=== PATIENT | male | born 1950 | race Caucasian/White ===

== ENCOUNTER 2018-04-27 14:46 | Inpatient (IN) ==
[2018-04-27 16:18] LABS: Baso # (Auto) 0.1 th/mm3 (0.0-0.2); Baso % (Auto) 0.8 % (0.0-2.0); Eos % (Auto) 0.2 % (0.0-4.0); Hemoglobin 15.2 gm/dL (13.0-17.0); Lymph # (Auto) 0.5 th/mm3 (1.0-4.8); Lymph % (Auto) 8.2 % (9.0-44.0); Mean Corpuscular HGB Conc 33.8 % (32.0-36.0); Mean Corpuscular Hemoglobin 33.2 pg (27.0-34.0); Mean Corpuscular Volume 98.2 fL (80.0-100.0); Mean Platelet Volume 7.7 fL (7.0-11.0); Mono # (Auto) 0.8 th/mm3 (0.0-0.9); Mono % (Auto) 12.1 % (0.0-8.0); Neut % (Auto) 78.7 % (16.0-70.0); Platelet Count 123 th/mm3 (150-450); Red Blood Count 4.58 mil/mm3 (4.50-5.90); Red Cell Distribution Width 13.8 % (11.6-17.2); White Blood Count 6.4 th/mm3 (4.0-11.0)
--- NOTE | 2018-04-27 16:18 | ED ---
HPI General Chief complaint: Urogenital-Male Stated complaint: shingles w/edema Time Seen by Provider: 04/27/18 15:33 History of Present Illness HPI narrative: 68-year-old male here for evaluation of bilateral leg edema. Patient states he has "herpetic edema", when I asked him what he means by herpetic edema he states that he sometimes gets shingles and that causes his legs to swell !, He says the swelling is been getting worse over the last few weeks, extending all the way to upper thighs and scrotum, he has shortness of breath, no chest pain, no cough. Patient states that he used to have oral sex with a heterosexual partner who licks his feet and her tongue turns into a snake tongue and it sometimes bites him under the edema. He states that is very sure that it is "herpetic edema" and just wants acyclovir and Lasix for it. He is unable to walk more than half a block without getting short of breath , he is noncompliant with his medications. Related Data Previous Rx's Medication Instructions Recorded acyclovir 400 mg PO TID #30 tab 04/07/18 furosemide [Lasix] 20 mg PO DAILY #10 tab 04/07/18 potassium chloride 8 meq PO DAILY #7 cap 04/07/18 carvedilol [Coreg] 3.125 mg PO BID #60 tab 05/01/18 metolazone 2.5 mg PO BID #60 tab 05/01/18 Allergies Allergy/AdvReac Type Severity Reaction Status Date / Time No Known Allergies Allergy Verified 04/27/18 14:57 Review of Systems ROS: all other systems reviewed are negative [facility] Social History Social History Substance History: Active Abuse Second Hand Smoke Exposure: Yes Smoking Status: Heavy tobacco smoker Tobacco Type: Cigarettes How Often Do You Have a Drink Containing Alcohol: 4 or more times a week Exam Narrative Exam Narrative: GENERAL: Alert oriented 3 no acute distress. SKIN: Focused skin assessment warm/dry. HEAD: Atraumatic. Normocephalic. EYES: Pupils equal and round. No scleral icterus. No injection or drainage. ENT: No nasal bleeding or discharge. Mucous membranes pink and moist. NECK: Trachea midline. No JVD. CARDIOVASCULAR: Regular rate and rhythm. No murmur appreciated. RESPIRATORY: No accessory muscle use. Clear to auscultation. Breath sounds equal bilaterally. GASTROINTESTINAL: Abdomen soft, non-tender, nondistended. Hepatic and splenic margins not palpable. MUSCULOSKELETAL: +3 pitting edema bilaterally to upper thighs and scrotum, no obvious deformities. No clubbing. NEUROLOGICAL: Awake and alert. No obvious cranial nerve deficits. Motor grossly within normal limits. Normal speech. PSYCHIATRIC: Appropriate mood and affect; insight and judgment normal. Course Initial Documented Vital Signs Temperature 97.6 F 04/27/18 14:53 Pulse Rate 90 04/27/18 14:53 Respiratory Rate 16 04/27/18 14:53 Blood Pressure 112/89 04/27/18 14:53 Pulse Oximetry 97 04/27/18 14:53 Last Documented Vital Signs Temperature 96.6 F L 05/04/18 12:00 Pulse Rate 94 H 05/04/18 12:00 Respiratory Rate 19 05/04/18 12:00 Blood Pressure 101/68 05/04/18 12:00 Pulse Oximetry 95 05/04/18 12:00 Medical Decision Making [facility] Narrative Medical decision making narrative: Patient poor historian, here for CHF exacerbation, he has anasarca, EKG shows ocassional PACs but no ST segment elevation or depression, he is clearly in CHF, will be admitted for further evaluation and management. Medical Screen Exam Complete: Yes Emergency Medical Condition: Yes Lab Data Result diagrams: 05/04/18 04:33 05/04/18 04:33 Lab Results 04/27/18 04/27/18 04/27/18 Range/Units 16:12 16:12 16:12 CBC w Diff Auto diff final WBC 6.4 (4.0-11.0) th/mm3 RBC 4.58 (4.50-5.90) mil/mm3 Hgb 15.2 (13.0-17.0) gm/dL Hct 45.0 (39.0-51.0) % MCV 98.2 (80.0-100.0) fL MCH 33.2 (27.0-34.0) pg MCHC 33.8 (32.0-36.0) % RDW 13.8 (11.6-17.2) % Plt Count 123 L (150-450) th/mm3 MPV 7.7 (7.0-11.0) fL Neut % (Auto) 78.7 H (16.0-70.0) % Lymph % (Auto) 8.2 L (9.0-44.0) % Wharton % (Auto) 12.1 H (0.0-8.0) % Eos % (Auto) 0.2 (0.0-4.0) % Baso % (Auto) 0.8 (0.0-2.0) % Neut # (Auto) 5.0 (1.8-7.7) th/mm3 Lymph # (Auto) 0.5 L (1.0-4.8) th/mm3 Wharton # (Auto) 0.8 (0.0-0.9) th/mm3 Eos # (Auto) 0.0 (0.0-0.4) th/mm3 Baso # (Auto) 0.1 (0.0-0.2) th/mm3 WBC Differential . Differential Comment . PT (9.8-11.6) sec INR Ratio APTT (24.3-30.1) sec Puncture Site Patient Temperature O2 Saturation (90-100) % ABG pH (7.380-7.420) ABG pCO2 (38-42) mmHg ABG pO2 (61-120) mmHg ABG HCO3 (22-26) mmol/L ABG O2 Content (12.0-20.0) Vol % ABG Base Excess (-2-2) mmol/L ABG Methemoglobin (0-2) % Aidan Test Hemoglobin (12.0-16.0) G/DL Carboxyhemoglobin (0-4) % O2 Delivery Device Liter Flow L/M Critical Value Sodium 133 L (136-145) meq/L Potassium 3.8 (3.5-5.1) meq/L Chloride 101 (98-107) meq/L Carbon Dioxide 23.6 (21.0-32.0) meq/L Anion Gap 8 (5-15) meq/L BUN 27 H (7-18) mg/dL Creatinine 1.10 (0.60-1.30) mg/dL Estimated GFR 66 L (>89) mL/min Random Glucose 114 H (74-106) mg/dL Calcium 8.3 L (8.5-10.1) mg/dL Phosphorus (2.5-4.9) mg/dL Magnesium (1.5-2.5) mg/dL Total Bilirubin 1.0 (0.2-1.0) mg/dL AST 36 (15-37) U/L ALT 28 (12-78) U/L Alkaline Phosphatase 60 (45-117) U/L Total Creatine Kinase 206 (39-308) U/L CK-MB (CK-2) 8.8 H (0.5-3.6) ng/mL Troponin I 0.13 H (0.02-0.05) ng/mL B-Natriuretic Peptide 2493 H (0-100) pg/mL Total Protein 5.3 L (6.4-8.2) g/dL Albumin 2.6 L (3.4-5.0) g/dL Lipase 178 (73-393) U/L TSH (0.358-3.740) uIU/mL Urine Color (Yellw/Straw) Urine Clarity (Clear) Urine pH (5.0-8.5) Ur Specific [place] (1.002-1.035) Urine Protein (Neg-Trace) mg/dL Urine Glucose (UA) (Negative) mg/dL Urine Ketones (Negative) mg/dL Urine Occult Blood (Negative) Urine Nitrate (Negative) Urine Bilirubin (Negative) Urine Urobilinogen (Less than 2) mg/dL Ur Leukocyte Esterase (Negative) Urine WBC (0-5) /hpf Ur Squamous Epith Cells (0-5) /hpf Micro UA Comment Ur Microscopic Review Urine Culture Comments Urine Opiates Screen (Neg) Ur Barbiturates Screen (Neg) Ur Amphetamines Screen (Neg) U Benzodiazepines Scrn (Neg) Urine Cocaine Screen (Neg) U Cannabinoids Screen (Neg) 04/27/18 04/27/18 04/27/18 Range/Units 16:12 16:12 19:00 CBC w Diff WBC (4.0-11.0) th/mm3 RBC (4.50-5.90) mil/mm3 Hgb (13.0-17.0) gm/dL Hct (39.0-51.0) % MCV (80.0-100.0) fL MCH (27.0-34.0) pg MCHC (32.0-36.0) % RDW (11.6-17.2) % Plt Count (150-450) th/mm3 MPV (7.0-11.0) fL Neut % (Auto) (16.0-70.0) % Lymph % (Auto) (9.0-44.0) % Wharton % (Auto) (0.0-8.0) % Eos % (Auto) (0.0-4.0) % Baso % (Auto) (0.0-2.0) % Neut # (Auto) (1.8-7.7) th/mm3 Lymph # (Auto) (1.0-4.8) th/mm3 Wharton # (Auto) (0.0-0.9) th/mm3 Eos # (Auto) (0.0-0.4) th/mm3 Baso # (Auto) (0.0-0.2) th/mm3 WBC Differential Differential Comment PT 11.7 H (9.8-11.6) sec INR 1.2 Ratio APTT 24.7 (24.3-30.1) sec Puncture Site Patient Temperature O2 Saturation (90-100) % ABG pH (7.380-7.420) ABG pCO2 (38-42) mmHg ABG pO2 (61-120) mmHg ABG HCO3 (22-26) mmol/L ABG O2 Content (12.0-20.0) Vol % ABG Base Excess (-2-2) mmol/L ABG Methemoglobin (0-2) % Aidan Test Hemoglobin (12.0-16.0) G/DL Carboxyhemoglobin (0-4) % O2 Delivery Device Liter Flow L/M Critical Value Sodium (136-145) meq/L Potassium (3.5-5.1) meq/L Chloride (98-107) meq/L Carbon Dioxide (21.0-32.0) meq/L Anion Gap (5-15) meq/L BUN (7-18) mg/dL Creatinine (0.60-1.30) mg/dL Estimated GFR (>89) mL/min Random Glucose (74-106) mg/dL Calcium (8.5-10.1) mg/dL Phosphorus (2.5-4.9) mg/dL Magnesium (1.5-2.5) mg/dL Total Bilirubin (0.2-1.0) mg/dL AST (15-37) U/L ALT (12-78) U/L Alkaline Phosphatase (45-117) U/L Total Creatine Kinase (39-308) U/L CK-MB (CK-2) (0.5-3.6) ng/mL Troponin I (0.02-0.05) ng/mL B-Natriuretic Peptide (0-100) pg/mL Total Protein (6.4-8.2) g/dL Albumin (3.4-5.0) g/dL Lipase (73-393) U/L TSH 1.020 (0.358-3.740) uIU/mL Urine Color (Yellw/Straw) Urine Clarity (Clear) Urine pH (5.0-8.5) Ur Specific [place] (1.002-1.035) Urine Protein (Neg-Trace) mg/dL Urine Glucose (UA) (Negative) mg/dL Urine Ketones (Negative) mg/dL Urine Occult Blood (Negative) Urine Nitrate (Negative) Urine Bilirubin (Negative) Urine Urobilinogen (Less than 2) mg/dL Ur Leukocyte Esterase (Negative) Urine WBC (0-5) /hpf Ur Squamous Epith Cells (0-5) /hpf Micro UA Comment Ur Microscopic Review Urine Culture Comments Urine Opiates Screen Neg (Neg) Ur Barbiturates Screen Neg (Neg) Ur Amphetamines Screen Neg (Neg) U Benzodiazepines Scrn Neg (Neg) Urine Cocaine Screen Neg (Neg) U Cannabinoids Screen Pos H (Neg) 04/27/18 04/27/18 04/27/18 Range/Units 19:00 19:05 22:45 CBC w Diff WBC (4.0-11.0) th/mm3 RBC (4.50-5.90) mil/mm3 Hgb (13.0-17.0) gm/dL Hct (39.0-51.0) % MCV (80.0-100.0) fL MCH (27.0-34.0) pg MCHC (32.0-36.0) % RDW (11.6-17.2) % Plt Count (150-450) th/mm3 MPV (7.0-11.0) fL Neut % (Auto) (16.0-70.0) % Lymph % (Auto) (9.0-44.0) % Wharton % (Auto) (0.0-8.0) % Eos % (Auto) (0.0-4.0) % Baso % (Auto) (0.0-2.0) % Neut # (Auto) (1.8-7.7) th/mm3 Lymph # (Auto) (1.0-4.8) th/mm3 Wharton # (Auto) (0.0-0.9) th/mm3 Eos # (Auto) (0.0-0.4) th/mm3 Baso # (Auto) (0.0-0.2) th/mm3 WBC Differential Differential Comment PT (9.8-11.6) sec INR Ratio APTT (24.3-30.1) sec Puncture Site Patient Temperature O2 Saturation (90-100) % ABG pH (7.380-7.420) ABG pCO2 (38-42) mmHg ABG pO2 (61-120) mmHg ABG HCO3 (22-26) mmol/L ABG O2 Content (12.0-20.0) Vol % ABG Base Excess (-2-2) mmol/L ABG Methemoglobin (0-2) % Aidan Test Hemoglobin (12.0-16.0) G/DL Carboxyhemoglobin (0-4) % O2 Delivery Device Liter Flow L/M Critical Value Sodium (136-145) meq/L Potassium (3.5-5.1) meq/L Chloride (98-107) meq/L Carbon Dioxide (21.0-32.0) meq/L Anion Gap (5-15) meq/L BUN (7-18) mg/dL Creatinine (0.60-1.30) mg/dL Estimated GFR (>89) mL/min Random Glucose (74-106) mg/dL Calcium (8.5-10.1) mg/dL Phosphorus (2.5-4.9) mg/dL Magnesium (1.5-2.5) mg/dL Total Bilirubin (0.2-1.0) mg/dL AST (15-37) U/L ALT (12-78) U/L Alkaline Phosphatase (45-117) U/L Total Creatine Kinase 205 180 (39-308) U/L CK-MB (CK-2) (0.5-3.6) ng/mL Troponin I 0.15 H 0.13 H (0.02-0.05) ng/mL B-Natriuretic Peptide (0-100) pg/mL Total Protein (6.4-8.2) g/dL Albumin (3.4-5.0) g/dL Lipase (73-393) U/L TSH (0.358-3.740) uIU/mL Urine Color Yellow (Yellw/Straw) Urine Clarity Clear (Clear) Urine pH 5.5 (5.0-8.5) Ur Specific [place] 1.020 (1.002-1.035) Urine Protein 30 H (Neg-Trace) mg/dL Urine Glucose (UA) Negative (Negative) mg/dL Urine Ketones Negative (Negative) mg/dL Urine Occult Blood Negative (Negative) Urine Nitrate Negative (Negative) Urine Bilirubin Negative (Negative) Urine Urobilinogen 0.2 (Less than 2) mg/dL Ur Leukocyte Esterase Negative (Negative) Urine WBC 0-5 (0-5) /hpf Ur Squamous Epith Cells 0-5 (0-5) /hpf Micro UA Comment Culture not ind Ur Microscopic Review Microscopic reviewed Urine Culture Comments Culture not ind Urine Opiates Screen (Neg) Ur Barbiturates Screen (Neg) Ur Amphetamines Screen (Neg) U Benzodiazepines Scrn (Neg) Urine Cocaine Screen (Neg) U Cannabinoids Screen (Neg) 04/27/18 04/27/18 04/28/18 Range/Units 22:45 22:45 06:25 CBC w Diff WBC (4.0-11.0) th/mm3 RBC (4.50-5.90) mil/mm3 Hgb (13.0-17.0) gm/dL Hct (39.0-51.0) % MCV (80.0-100.0) fL MCH (27.0-34.0) pg MCHC (32.0-36.0) % RDW (11.6-17.2) % Plt Count (150-450) th/mm3 MPV (7.0-11.0) fL Neut % (Auto) (16.0-70.0) % Lymph % (Auto) (9.0-44.0) % Wharton % (Auto) (0.0-8.0) % Eos % (Auto) (0.0-4.0) % Baso % (Auto) (0.0-2.0) % Neut # (Auto) (1.8-7.7) th/mm3 Lymph # (Auto) (1.0-4.8) th/mm3 Wharton # (Auto) (0.0-0.9) th/mm3 Eos # (Auto) (0.0-0.4) th/mm3 Baso # (Auto) (0.0-0.2) th/mm3 WBC Differential Differential Comment PT (9.8-11.6) sec INR Ratio APTT (24.3-30.1) sec Puncture Site Patient Temperature O2 Saturation (90-100) % ABG pH (7.380-7.420) ABG pCO2 (38-42) mmHg ABG pO2 (61-120) mmHg ABG HCO3 (22-26) mmol/L ABG O2 Content (12.0-20.0) Vol % ABG Base Excess (-2-2) mmol/L ABG Methemoglobin (0-2) % Aidan Test Hemoglobin (12.0-16.0) G/DL Carboxyhemoglobin (0-4) % O2 Delivery Device Liter Flow L/M Critical Value Sodium 134 L 132 L (136-145) meq/L Potassium 3.4 L 4.0 (3.5-5.1) meq/L Chloride 99 98 (98-107) meq/L Carbon Dioxide 27.7 24.6 (21.0-32.0) meq/L Anion Gap 7 9 (5-15) meq/L BUN 25 H 28 H (7-18) mg/dL Creatinine 1.10 1.20 (0.60-1.30) mg/dL Estimated GFR 66 L 60 L (>89) mL/min Random Glucose 134 H 115 H (74-106) mg/dL Calcium 7.9 L 8.5 (8.5-10.1) mg/dL Phosphorus 2.5 (2.5-4.9) mg/dL Magnesium 1.9 2.0 (1.5-2.5) mg/dL Total Bilirubin (0.2-1.0) mg/dL AST (15-37) U/L ALT (12-78) U/L Alkaline Phosphatase (45-117) U/L Total Creatine Kinase (39-308) U/L CK-MB (CK-2) (0.5-3.6) ng/mL Troponin I (0.02-0.05) ng/mL B-Natriuretic Peptide (0-100) pg/mL Total Protein (6.4-8.2) g/dL Albumin (3.4-5.0) g/dL Lipase (73-393) U/L TSH (0.358-3.740) uIU/mL Urine Color (Yellw/Straw) Urine Clarity (Clear) Urine pH (5.0-8.5) Ur Specific [place] (1.002-1.035) Urine Protein (Neg-Trace) mg/dL Urine Glucose (UA) (Negative) mg/dL Urine Ketones (Negative) mg/dL Urine Occult Blood (Negative) Urine Nitrate (Negative) Urine Bilirubin (Negative) Urine Urobilinogen (Less than 2) mg/dL Ur Leukocyte Esterase (Negative) Urine WBC (0-5) /hpf Ur Squamous Epith Cells (0-5) /hpf Micro UA Comment Ur Microscopic Review Urine Culture Comments Urine Opiates Screen (Neg) Ur Barbiturates Screen (Neg) Ur Amphetamines Screen (Neg) U Benzodiazepines Scrn (Neg) Urine Cocaine Screen (Neg) U Cannabinoids Screen (Neg) 04/28/18 04/29/18 04/30/18 Range/Units 13:07 06:07 05:20 CBC w Diff WBC (4.0-11.0) th/mm3 RBC (4.50-5.90) mil/mm3 Hgb (13.0-17.0) gm/dL Hct (39.0-51.0) % MCV (80.0-100.0) fL MCH (27.0-34.0) pg MCHC (32.0-36.0) % RDW (11.6-17.2) % Plt Count (150-450) th/mm3 MPV (7.0-11.0) fL Neut % (Auto) (16.0-70.0) % Lymph % (Auto) (9.0-44.0) % Wharton % (Auto) (0.0-8.0) % Eos % (Auto) (0.0-4.0) % Baso % (Auto) (0.0-2.0) % Neut # (Auto) (1.8-7.7) th/mm3 Lymph # (Auto) (1.0-4.8) th/mm3 Wharton # (Auto) (0.0-0.9) th/mm3 Eos # (Auto) (0.0-0.4) th/mm3 Baso # (Auto) (0.0-0.2) th/mm3 WBC Differential Differential Comment PT (9.8-11.6) sec INR Ratio APTT (24.3-30.1) sec Puncture Site Left radial Patient Temperature 98.6 O2 Saturation 97 (90-100) % ABG pH 7.39 (7.380-7.420) ABG pCO2 34 L (38-42) mmHg ABG pO2 143 H (61-120) mmHg ABG HCO3 20 L (22-26) mmol/L ABG O2 Content 21.3 H (12.0-20.0) Vol % ABG Base Excess -3.8 L (-2-2) mmol/L ABG Methemoglobin 0.4 (0-2) % Aidan Test Present Hemoglobin 15.4 (12.0-16.0) G/DL Carboxyhemoglobin 1.3 (0-4) % O2 Delivery Device Nasal cannula Liter Flow 3.00 L/M Critical Value No Sodium 134 L 134 L (136-145) meq/L Potassium 4.4 4.2 (3.5-5.1) meq/L Chloride 99 99 (98-107) meq/L Carbon Dioxide 24.4 25.8 (21.0-32.0) meq/L Anion Gap 11 9 (5-15) meq/L BUN 32 H 39 H (7-18) mg/dL Creatinine 1.20 1.30 (0.60-1.30) mg/dL Estimated GFR 60 L 55 L (>89) mL/min Random Glucose 106 111 H (74-106) mg/dL Calcium 8.3 L 8.1 L (8.5-10.1) mg/dL Phosphorus (2.5-4.9) mg/dL Magnesium 1.9 2.0 (1.5-2.5) mg/dL Total Bilirubin (0.2-1.0) mg/dL AST (15-37) U/L ALT (12-78) U/L Alkaline Phosphatase (45-117) U/L Total Creatine Kinase (39-308) U/L CK-MB (CK-2) (0.5-3.6) ng/mL Troponin I (0.02-0.05) ng/mL B-Natriuretic Peptide (0-100) pg/mL Total Protein (6.4-8.2) g/dL Albumin (3.4-5.0) g/dL Lipase (73-393) U/L TSH (0.358-3.740) uIU/mL Urine Color (Yellw/Straw) Urine Clarity (Clear) Urine pH (5.0-8.5) Ur Specific [place] (1.002-1.035) Urine Protein (Neg-Trace) mg/dL Urine Glucose (UA) (Negative) mg/dL Urine Ketones (Negative) mg/dL Urine Occult Blood (Negative) Urine Nitrate (Negative) Urine Bilirubin (Negative) Urine Urobilinogen (Less than 2) mg/dL Ur Leukocyte Esterase (Negative) Urine WBC (0-5) /hpf Ur Squamous Epith Cells (0-5) /hpf Micro UA Comment Ur Microscopic Review Urine Culture Comments Urine Opiates Screen (Neg) Ur Barbiturates Screen (Neg) Ur Amphetamines Screen (Neg) U Benzodiazepines Scrn (Neg) Urine Cocaine Screen (Neg) U Cannabinoids Screen (Neg) 05/01/18 05/01/18 05/02/18 Range/Units 04:55 04:55 04:52 CBC w Diff WBC (4.0-11.0) th/mm3 RBC (4.50-5.90) mil/mm3 Hgb (13.0-17.0) gm/dL Hct (39.0-51.0) % MCV (80.0-100.0) fL MCH (27.0-34.0) pg MCHC (32.0-36.0) % RDW (11.6-17.2) % Plt Count (150-450) th/mm3 MPV (7.0-11.0) fL Neut % (Auto) (16.0-70.0) % Lymph % (Auto) (9.0-44.0) % Wharton % (Auto) (0.0-8.0) % Eos % (Auto) (0.0-4.0) % Baso % (Auto) (0.0-2.0) % Neut # (Auto) (1.8-7.7) th/mm3 Lymph # (Auto) (1.0-4.8) th/mm3 Wharton # (Auto) (0.0-0.9) th/mm3 Eos # (Auto) (0.0-0.4) th/mm3 Baso # (Auto) (0.0-0.2) th/mm3 WBC Differential Differential Comment PT (9.8-11.6) sec INR Ratio APTT (24.3-30.1) sec Puncture Site Patient Temperature O2 Saturation (90-100) % ABG pH (7.380-7.420) ABG pCO2 (38-42) mmHg ABG pO2 (61-120) mmHg ABG HCO3 (22-26) mmol/L ABG O2 Content (12.0-20.0) Vol % ABG Base Excess (-2-2) mmol/L ABG Methemoglobin (0-2) % Aidan Test Hemoglobin (12.0-16.0) G/DL Carboxyhemoglobin (0-4) % O2 Delivery Device Liter Flow L/M Critical Value Sodium 135 L 134 L (136-145) meq/L Potassium 3.0 L D 3.0 L (3.5-5.1) meq/L Chloride 97 L 95 L (98-107) meq/L Carbon Dioxide 27.8 32.9 H (21.0-32.0) meq/L Anion Gap 10 6 (5-15) meq/L BUN 37 H 39 H (7-18) mg/dL Creatinine 1.10 1.10 (0.60-1.30) mg/dL Estimated GFR 66 L 66 L (>89) mL/min Random Glucose 101 112 H (74-106) mg/dL Calcium 8.1 L 8.4 L (8.5-10.1) mg/dL Phosphorus 3.3 (2.5-4.9) mg/dL Magnesium 1.7 1.8 (1.5-2.5) mg/dL Total Bilirubin (0.2-1.0) mg/dL AST (15-37) U/L ALT (12-78) U/L Alkaline Phosphatase (45-117) U/L Total Creatine Kinase (39-308) U/L CK-MB (CK-2) (0.5-3.6) ng/mL Troponin I (0.02-0.05) ng/mL B-Natriuretic Peptide (0-100) pg/mL Total Protein (6.4-8.2) g/dL Albumin (3.4-5.0) g/dL Lipase (73-393) U/L TSH (0.358-3.740) uIU/mL Urine Color (Yellw/Straw) Urine Clarity (Clear) Urine pH (5.0-8.5) Ur Specific [place] (1.002-1.035) Urine Protein (Neg-Trace) mg/dL Urine Glucose (UA) (Negative) mg/dL Urine Ketones (Negative) mg/dL Urine Occult Blood (Negative) Urine Nitrate (Negative) Urine Bilirubin (Negative) Urine Urobilinogen (Less than 2) mg/dL Ur Leukocyte Esterase (Negative) Urine WBC (0-5) /hpf Ur Squamous Epith Cells (0-5) /hpf Micro UA Comment Ur Microscopic Review Urine Culture Comments Urine Opiates Screen (Neg) Ur Barbiturates Screen (Neg) Ur Amphetamines Screen (Neg) U Benzodiazepines Scrn (Neg) Urine Cocaine Screen (Neg) U Cannabinoids Screen (Neg) 05/03/18 05/03/18 05/04/18 Range/Units 04:55 12:10 04:33 CBC w Diff Auto diff final WBC 7.1 (4.0-11.0) th/mm3 RBC 4.61 (4.50-5.90) mil/mm3 Hgb 15.5 (13.0-17.0) gm/dL Hct 46.2 (39.0-51.0) % MCV 100.3 H (80.0-100.0) fL MCH 33.6 (27.0-34.0) pg MCHC 33.5 (32.0-36.0) % RDW 14.2 (11.6-17.2) % Plt Count 123 L (150-450) th/mm3 MPV 8.3 (7.0-11.0) fL Neut % (Auto) 77.9 H (16.0-70.0) % Lymph % (Auto) 9.2 (9.0-44.0) % Wharton % (Auto) 12.1 H (0.0-8.0) % Eos % (Auto) 0.5 (0.0-4.0) % Baso % (Auto) 0.3 (0.0-2.0) % Neut # (Auto) 5.6 (1.8-7.7) th/mm3 Lymph # (Auto) 0.6 L (1.0-4.8) th/mm3 [place]arton # (Auto) 0.9 (0.0-0.9) th/mm3 Eos # (Auto) 0.0 (0.0-0.4) th/mm3 Baso # (Auto) 0.0 (0.0-0.2) th/mm3 WBC Differential . Differential Comment . PT (9.8-11.6) sec INR Ratio APTT (24.3-30.1) sec Puncture Site Patient Temperature O2 Saturation (90-100) % ABG pH (7.380-7.420) ABG pCO2 (38-42) mmHg ABG pO2 (61-120) mmHg ABG HCO3 (22-26) mmol/L ABG O2 Content (12.0-20.0) Vol % ABG Base Excess (-2-2) mmol/L ABG Methemoglobin (0-2) % Aidan Test Hemoglobin (12.0-16.0) G/DL Carboxyhemoglobin (0-4) % O2 Delivery Device Liter Flow L/M Critical Value Sodium 139 (136-145) meq/L Potassium 2.8 L* 2.9 L* (3.5-5.1) meq/L Chloride 95 L (98-107) meq/L Carbon Dioxide 37.0 H (21.0-32.0) meq/L Anion Gap 7 (5-15) meq/L BUN 32 H (7-18) mg/dL Creatinine 1.00 (0.60-1.30) mg/dL Estimated GFR 74 L (>89) mL/min Random Glucose 107 H (74-106) mg/dL Calcium 8.3 L (8.5-10.1) mg/dL Phosphorus (2.5-4.9) mg/dL Magnesium 1.7 (1.5-2.5) mg/dL Total Bilirubin (0.2-1.0) mg/dL AST (15-37) U/L ALT (12-78) U/L Alkaline Phosphatase (45-117) U/L Total Creatine Kinase (39-308) U/L CK-MB (CK-2) (0.5-3.6) ng/mL Troponin I (0.02-0.05) ng/mL B-Natriuretic Peptide (0-100) pg/mL Total Protein (6.4-8.2) g/dL Albumin (3.4-5.0) g/dL Lipase (73-393) U/L TSH (0.358-3.740) uIU/mL Urine Color (Yellw/Straw) Urine Clarity (Clear) Urine pH (5.0-8.5) Ur Specific [place] (1.002-1.035) Urine Protein (Neg-Trace) mg/dL Urine Glucose (UA) (Negative) mg/dL Urine Ketones (Negative) mg/dL Urine Occult Blood (Negative) Urine Nitrate (Negative) Urine Bilirubin (Negative) Urine Urobilinogen (Less than 2) mg/dL Ur Leukocyte Esterase (Negative) Urine WBC (0-5) /hpf Ur Squamous Epith Cells (0-5) /hpf Micro UA Comment Ur Microscopic Review Urine Culture Comments Urine Opiates Screen (Neg) Ur Barbiturates Screen (Neg) Ur Amphetamines Screen (Neg) U Benzodiazepines Scrn (Neg) Urine Cocaine Screen (Neg) U Cannabinoids Screen (Neg) 05/04/18 Range/Units 04:33 CBC w Diff WBC (4.0-11.0) th/mm3 RBC (4.50-5.90) mil/mm3 Hgb (13.0-17.0) gm/dL Hct (39.0-51.0) % MCV (80.0-100.0) fL MCH (27.0-34.0) pg MCHC (32.0-36.0) % RDW (11.6-17.2) % Plt Count (150-450) th/mm3 MPV (7.0-11.0) fL Neut % (Auto) (16.0-70.0) % Lymph % (Auto) (9.0-44.0) % [place] % (Auto) (0.0-8.0) % Eos % (Auto) (0.0-4.0) % Baso % (Auto) (0.0-2.0) % Neut # (Auto) (1.8-7.7) th/mm3 Lymph # (Auto) (1.0-4.8) th/mm3 [place] # (Auto) (0.0-0.9) th/mm3 Eos # (Auto) (0.0-0.4) th/mm3 Baso # (Auto) (0.0-0.2) th/mm3 WBC Differential Differential Comment PT (9.8-11.6) sec INR Ratio APTT (24.3-30.1) sec Puncture Site Patient Temperature O2 Saturation (90-100) % ABG pH (7.380-7.420) ABG pCO2 (38-42) mmHg ABG pO2 (61-120) mmHg ABG HCO3 (22-26) mmol/L ABG O2 Content (12.0-20.0) Vol % ABG Base Excess (-2-2) mmol/L ABG Methemoglobin (0-2) % Aidan Test Hemoglobin (12.0-16.0) G/DL Carboxyhemoglobin (0-4) % O2 Delivery Device Liter Flow L/M Critical Value Sodium 138 (136-145) meq/L Potassium 3.9 D (3.5-5.1) meq/L Chloride 97 L (98-107) meq/L Carbon Dioxide 35.2 H (21.0-32.0) meq/L Anion Gap 6 (5-15) meq/L BUN 38 H (7-18) mg/dL Creatinine 0.97 (0.60-1.30) mg/dL Estimated GFR 77 L (>89) mL/min Random Glucose 109 H (74-106) mg/dL Calcium 8.4 L (8.5-10.1) mg/dL Phosphorus (2.5-4.9) mg/dL Magnesium 1.8 (1.5-2.5) mg/dL Total Bilirubin 1.5 H (0.2-1.0) mg/dL AST 119 H (15-37) U/L ALT 73 (12-78) U/L Alkaline Phosphatase 114 (45-117) U/L Total Creatine Kinase (39-308) U/L CK-MB (CK-2) (0.5-3.6) ng/mL Troponin I (0.02-0.05) ng/mL B-Natriuretic Peptide (0-100) pg/mL Total Protein 5.8 L (6.4-8.2) g/dL Albumin 2.4 L (3.4-5.0) g/dL Lipase (73-393) U/L TSH (0.358-3.740) uIU/mL Urine Color (Yellw/Straw) Urine Clarity (Clear) Urine pH (5.0-8.5) Ur Specific [place] (1.002-1.035) Urine Protein (Neg-Trace) mg/dL Urine Glucose (UA) (Negative) mg/dL Urine Ketones (Negative) mg/dL Urine Occult Blood (Negative) Urine Nitrate (Negative) Urine Bilirubin (Negative) Urine Urobilinogen (Less than 2) mg/dL Ur Leukocyte Esterase (Negative) Urine WBC (0-5) /hpf Ur Squamous Epith Cells (0-5) /hpf Micro UA Comment Ur Microscopic Review Urine Culture Comments Urine Opiates Screen (Neg) Ur Barbiturates Screen (Neg) Ur Amphetamines Screen (Neg) U Benzodiazepines Scrn (Neg) Urine Cocaine Screen (Neg) U Cannabinoids Screen (Neg) Imaging Data Radiologist's impression: Chest X-Ray 04/27/18 15:49 CONCLUSION: Negative examination. The heart is borderline enlarged. Chest X-Ray 04/28/18 00:00 CONCLUSION: 1. Bibasilar patchy densities consistent with atelectasis and/or infiltrates. Clinical correlation is recommended. 2. Cardiomegaly. Myocardial Perfusion Scan Nuc Med 04/29/18 00:00 CONCLUSION: 1. Global hypokinesis with EF of 14% and dilated left ventricle. 2. No definite reversible perfusion defects are identified to suggest stress- induced myocardial ischemia at this time. Discharge Plan Discharge Disposition Patient Disposition: 30 Still Patient Discharge Condition Condition: Stable Discharge Details Discharge Comment: if lifevest arranged Physicians Team ED Provider: Houston Strong Primary Care Provider: UNKNOWN, Attending Provider: Jerome Zheng Other Providers: Ronn,Dash Discharge Interventions Interventions: ED Discharge Assessment Last Done: 04/27/18 21:47 Vital Signs Last Done: 04/27/18 17:00 Status ED Status: Left Department Discharge Information Discharge Date/Time: 04/27/18 21:49
[2018-04-27 16:42] LABS: Chloride 101 meq/L (98-107); Potassium 3.8 meq/L (3.5-5.1); Sodium 133 meq/L (136-145)
[2018-04-27 16:46] LABS: Albumin 2.6 g/dL (3.4-5.0); Anion Gap 8 meq/L (5-15); Calcium 8.3 mg/dL (8.5-10.1); Carbon Dioxide 23.6 meq/L (21.0-32.0); Glucose,Random 114 mg/dL (74-106); Lipase 178 U/L (73-393)
[2018-04-27 16:47] LABS: Blood Urea Nitrogen 27 mg/dL (7-18)
[2018-04-27 16:49] LABS: Alanine Aminotransferase 28 U/L (12-78); Aspartate Aminotransferase 36 U/L (15-37); Glomerular Filtration Rate 66 mL/min (>89)
[2018-04-27 16:51] LABS: Activated Partial Thrombo Time 24.7 sec (24.3-30.1); INR 1.2 Ratio; Prothrombin Time 11.7 sec (9.8-11.6); Total Protein 5.3 g/dL (6.4-8.2)
[2018-04-27 16:52] LABS: Alkaline Phosphatase 60 U/L (45-117); Creatine Kinase 206 U/L (39-308)
[2018-04-27 16:54] LABS: Troponin I 0.13 ng/mL (0.02-0.05)
[2018-04-27 17:04] LABS: Creatine Kinase MB 8.8 ng/mL (0.5-3.6)
--- NOTE | 2018-04-27 17:29 | XR ---
EXAM DATE: 04/27/2018 5:19 PM EDT AGE/SEX: 68 years / Male INDICATIONS: Short of breath. CLINICAL DATA: This is the patient's initial encounter. Patient reports that signs and symptoms have been present for 1 day and indicates a pain score of 0/10. MEDICAL/SURGICAL HISTORY: None. None. COMPARISON: No prior exams available for comparison. FINDINGS: A single AP view of the chest demonstrates the lungs to be symmetrically aerated without evidence of mass, infiltrate or effusion. The cardiomediastinal contours are unremarkable. Osseous structures a re intact. CONCLUSION: Negative examination. The heart is borderline enlarged. Electronically signed by: Dash Garcia MD 04/27/2018 5:28 PM EDT
[2018-04-27] MEDS ORDERED: Aluminum/Magnesium/Simethacone Susp 30 ML UDC PO PRN (18:27)
[2018-04-27] MEDS ORDERED: Docusate Sodium 100 MG Capsule PO PRN (18:27)
[2018-04-27] MEDS ORDERED: Senna/Docusate Sodium 8.6/50 MG Tablet PO PRN (18:27)
[2018-04-27] MEDS: Heparin - SQ 10,000 UNITS/ML Vial SQ SCH (19:12)
[2018-04-27 19:31] LABS: Bilirubin,Urine Negative (Negative); Clarity,Urine Clear (Clear); Color,Urine Yellow (Yellw/Straw); Glucose,Urine (UA) Negative (Negative); Leukocyte Esterase,Urine Negative (Negative); Nitrite,Urine Negative (Negative); PH,Urine 5.5 (5.0-8.5); Urobilinogen,Urine 0.2 mg/dL (Less than 2)
[2018-04-27 19:37] LABS: Amphetamine Screen,Urine Neg (Neg)
[2018-04-27 19:40] LABS: Troponin I 0.15 ng/mL (0.02-0.05)
[2018-04-27 19:43] LABS: Squamous Epithelial Cell,Urine 0-5 /hpf (0-5); WBC,Urine 0-5 /hpf (0-5)
[2018-04-27 19:45] LABS: Barbiturate Screen,Urine Neg (Neg)
[2018-04-27 19:48] LABS: Cannabinoid Screen,Urine Pos (Neg)
[2018-04-27 19:49] LABS: Cocaine Screen,Urine Neg (Neg)
[2018-04-27 20:03] LABS: Opiate Screen,Urine Neg (Neg)
[2018-04-27 23:12] LABS: Potassium 3.4 meq/L (3.5-5.1)
[2018-04-27 23:14] LABS: Calcium 7.9 mg/dL (8.5-10.1)
[2018-04-27 23:15] LABS: Carbon Dioxide 27.7 meq/L (21.0-32.0); Magnesium 1.9 mg/dL (1.5-2.5)
[2018-04-27 23:22] LABS: Troponin I 0.13 ng/mL (0.02-0.05)
[2018-04-28] MEDS ORDERED: Potassium Chloride 25 MEQ Effervescent Tablet PO ONE (00:28)
[2018-04-28] MEDS: Heparin - SQ 10,000 UNITS/ML Vial SQ SCH ×2 (06:46→17:14)
[2018-04-28 07:06] LABS: Calcium 8.5 mg/dL (8.5-10.1); Carbon Dioxide 24.6 meq/L (21.0-32.0)
[2018-04-28] MEDS: Acyclovir 200 MG Capsule PO SCH ×3 (10:08→17:13)
[2018-04-28] MEDS: Aspirin 325 MG Tablet PO SCH (10:09)
[2018-04-28 13:10] LABS: ABG Base Excess -3.8 mmol/L (-2-2); ABG PCO2 34 mmHg (38-42); ABG PO2 143 mmHg (61-120)
--- NOTE | 2018-04-28 13:36 | P.HP ---
History of Present Illness Primary Care Physician: UNKNOWN Chief Complaint: Shortness of breath History of Present Illness: This is a 68-year-old male with a history of BPH and herpes. He presents to the emergency department because of bilateral lower extremity swelling. Started several weeks ago with worsening bilateral lower extremity swelling involving the scrotum and shortness of breath worse with exertion. Patient claims compliance with medical therapy. Denies chest pain, fever, chills, cough , palpitations and urinary changes. Recently started on acyclovir because of herpetic lesions involving the abdomen and bilateral lower extremities. In the emergency department, he was started on IV Lasix. This morning he was doing better tolerating room air when he turned blue when he was rolled over. At that time patient also complained of shortness of breath. Oxygen was given with improvement of cyanosis. ABG shows a pH of 7.39 PCO2 34 PO2 143 on 3 L nasal cannula. Troponin of 0.13 denies history of coronary artery disease. EKG interpreted by me with sinus tachycardia PVC and incomplete right bundle branch block. All other systems reviewed negative. Review of Systems All other systems reviewed negative except as stated in HPI PMFSH - History History Provided By: Patient - Medical History Medical History: Medical History (Last Updated 04/28/18 @ 13:30 by Jason Bean MD) BPH (benign prostatic hyperplasia) Edema Herpes - Surgical History Surgical History: Surgical History (Last Reviewed 04/28/18 @ 13:30 by Jason Bean MD) Hx of tonsillectomy - Family History Family History: Family History (Last Updated 04/28/18 @ 13:30 by Jason Bean MD) Other CVA (cerebral vascular accident) - Tobacco History Second Hand Smoke Exposure: Yes Tobacco Use In Past 30 Days: Yes Smoking Status: Heavy tobacco smoker Tobacco Type: Cigarettes - Alcohol History How Often Do You Have a Drink Containing Alcohol: 4 or more times a week - Substance Use History Substance History: Active Abuse - Substance Use Type Marijuana Status: Active Route Used: Inhalation Frequency: daily Last Used: yesterday - Immunization History Tetanus Immunization: <5 Years Hx Influenza Vaccine This Season: No Medications and Allergies Active Medications: Active Medications Acetaminophen (Tylenol) 650 mg PO Q4H PRN PRN Reason: Temp > 100.4 Acyclovir (Zovirax) 400 mg PO TID DAVI Last Admin: 04/28/18 13:09 Dose: 400 mg Al Hydrox/Mg Hydrox/Simethicone (Mag-Al Plus Susp Liq) 30 ml PO Q6H PRN PRN Reason: DYSPEPSIA Al Hydroxide/Mg Hydroxide (Milk Of Magnesia Liq) 30 ml PO DAILY PRN PRN Reason: SEVERE CONSITIPATION Aspirin (Aspirin) 325 mg PO DAILY [facility] Last Admin: 04/28/18 10:09 Dose: 325 mg Calcium Carbonate (Tums Chew) 1,000 mg CHEW TID PRN PRN Reason: DYSPEPSIA Carvedilol (Coreg) 3.125 mg PO BID [facility] Last Admin: 04/28/18 10:24 Dose: 3.125 mg Clonidine HCl (Catapres) 0.1 mg PO Q6HR PRN PRN Reason: SBP>180 DBP>100 Docusate Sodium (Colace) 100 mg PO BID PRN PRN Reason: CONSTIPATION Enalaprilat (Vasotec Inj) 1.25 mg IV.PUSH Q6H PRN PRN Reason: SEE LABEL COMMENTS Furosemide (Lasix Inj) 20 mg IV.PUSH BID@0900,1800 [facility] Last Admin: 04/28/18 10:08 Dose: 20 mg Heparin Sodium (Porcine) (Heparin Inj) 5,000 units SQ Q12H [facility] Last Admin: 04/28/18 06:46 Dose: 5,000 units Nitroglycerin (Nitrostat Sl) 0.4 mg SL Q5M PRN PRN Reason: CHEST PAIN Ondansetron HCl (Zofran Inj) 4 mg IV.PUSH Q6H PRN PRN Reason: NAUSEA Potassium Chloride (Klor-Con 8) 8 meq PO DAILY [facility] Last Admin: 04/28/18 10:07 Dose: 8 meq Senna/Docusate Sodium (Latasha-Colace) 1 tab PO BID PRN PRN Reason: CONSTIPATION Sodium Chloride (Ns Flush) 2 ml IV.FLUSH BID [facility] Last Admin: 04/28/18 10:13 Dose: 2 ml Sodium Chloride (Ns Flush) 2 ml IV.FLUSH PRN PRN PRN Reason: FLUSH AFTER USING IV ACCESS Allergies Allergy/AdvReac Type Severity Reaction Status Date / Time No Known Allergies Allergy Verified 04/27/18 14:57 Exam Vital signs: Vital Signs 04/27/18 14:53 04/27/18 17:00 04/27/18 18:22 Temperature 97.6 F Pulse Rate 90 120 H Respiratory Rate 16 17 Blood Pressure 112/89 119/97 H Pulse Oximetry 97 97 96 04/27/18 21:12 04/27/18 21:47 04/27/18 22:00 Temperature 98.3 F Pulse Rate 98 H 118 H 120 H Respiratory Rate 15 22 24 Blood Pressure 98/85 L 109/91 H 126/93 H Pulse Oximetry 99 04/27/18 22:26 04/27/18 22:32 04/27/18 23:00 Temperature Pulse Rate 122 H 110 H Respiratory Rate 29 H 14 Blood Pressure 124/89 103/84 Pulse Oximetry 97 97 04/28/18 00:00 04/28/18 01:06 04/28/18 02:00 Temperature 98.4 F Pulse Rate 120 H 112 H 120 H Respiratory Rate 24 24 18 Blood Pressure 113/82 108/93 H 134/85 Pulse Oximetry 04/28/18 03:00 04/28/18 04:06 04/28/18 05:06 Temperature 98.3 F Pulse Rate 120 H 114 H 112 H Respiratory Rate 22 15 25 H Blood Pressure 116/85 119/96 H 113/96 H Pulse Oximetry 04/28/18 05:57 04/28/18 06:06 04/28/18 07:06 Temperature 97.4 F L Pulse Rate 116 H 116 H Respiratory Rate 24 22 Blood Pressure 95/73 L 151/101 H Pulse Oximetry 97 98 04/28/18 07:55 04/28/18 08:08 04/28/18 08:26 Temperature Pulse Rate 122 H 118 H Respiratory Rate 34 H Blood Pressure 130/113 H Pulse Oximetry 04/28/18 08:27 04/28/18 13:09 Temperature Pulse Rate Respiratory Rate 20 Blood Pressure Pulse Oximetry 99 Intake & Output 04/27/18 04/28/18 04/28/18 18:59 06:59 18:59 Intake Total 1391 / 1391 Output Total 1425 / 1425 Balance -34 / -34 Weight 87 kg 86.8 kg Intake: Oral 1391 / 1391 Output: Urine 1425 / 1425 Other: # Voids 2 Date of Last Bowel Movement 04/28/18 Weight On Admission 86.8 kg Narrative: GENERAL: Well-developed, well-nourished in no distress SKIN: Warm and dry. No obvious herpetic lesions. Superficial ulcers bilateral legs. No signs of infection. HEAD: Atraumatic. Normocephalic. EYES: Pupils equal and round. No scleral icterus. No injection or drainage. ENT: No nasal bleeding or discharge. Mucous membranes pink and moist. NECK: Trachea midline. No JVD. CARDIOVASCULAR: Regular rate and rhythm. Distant heart sounds RESPIRATORY: No accessory muscle use. Decreased breath sounds equal bilaterally. GASTROINTESTINAL: Abdomen soft, non-tender, nondistended. Scrotal edema MUSCULOSKELETAL: Extremities without clubbing, cyanosis with bilateral lower extremity pitting edema. No obvious deformities. NEUROLOGICAL: Awake and alert. No obvious cranial nerve deficits. Motor grossly within normal limits. Five out of 5 muscle strength in the arms and legs. Normal speech. PSYCHIATRIC: Appropriate mood and affect; insight and judgment normal. Results - Labs CBC & Chem 7: 04/27/18 16:12 04/28/18 06:25 Labs: Laboratory Results - last 24 hr 04/27/18 04/27/18 04/27/18 16:12 16:12 16:12 CBC w Diff Auto diff final WBC 6.4 RBC 4.58 Hgb 15.2 Hct 45.0 MCV 98.2 MCH 33.2 MCHC 33.8 RDW 13.8 Plt Count 123 L MPV 7.7 Neut % (Auto) 78.7 H Lymph % (Auto) 8.2 L [place] % (Auto) 12.1 H Eos % (Auto) 0.2 Baso % (Auto) 0.8 Neut # (Auto) 5.0 Lymph # (Auto) 0.5 L [place] # (Auto) 0.8 Eos # (Auto) 0.0 Baso # (Auto) 0.1 WBC Differential . Differential Comment . PT INR APTT Puncture Site Patient Temperature O2 Saturation ABG pH ABG pCO2 ABG pO2 ABG HCO3 ABG O2 Content ABG Base Excess ABG Methemoglobin Aidan Test Hemoglobin Carboxyhemoglobin O2 Delivery Device Liter Flow Critical Value Sodium 133 L Potassium 3.8 Chloride 101 Carbon Dioxide 23.6 Anion Gap 8 BUN 27 H Creatinine 1.10 Estimated GFR 66 L Random Glucose 114 H Calcium 8.3 L Phosphorus Magnesium Total Bilirubin 1.0 AST 36 ALT 28 Alkaline Phosphatase 60 Total Creatine Kinase 206 CK-MB (CK-2) 8.8 H Troponin I 0.13 H B-Natriuretic Peptide 2493 H Total Protein 5.3 L Albumin 2.6 L Lipase 178 TSH Urine Color Urine Clarity Urine pH Ur Specific Pi[place]on Urine Protein Urine Glucose (UA) Urine Ketones Urine Occult Blood Urine Nitrate Urine Bilirubin Urine Urobilinogen Ur Leukocyte Esterase Urine WBC Ur Squamous Epith Cells Micro UA Comment Ur Microscopic Review Urine Culture Comments Urine Opiates Screen Ur Barbiturates Screen Ur Amphetamines Screen U Benzodiazepines Scrn Urine Cocaine Screen U Cannabinoids Screen 04/27/18 04/27/18 04/27/18 16:12 16:12 19:00 CBC w Diff WBC RBC Hgb Hct MCV MCH MCHC RDW Plt Count MPV Neut % (Auto) Lymph % (Auto) [place] % (Auto) Eos % (Auto) Baso % (Auto) Neut # (Auto) Lymph # (Auto) [place] # (Auto) Eos # (Auto) Baso # (Auto) WBC Differential Differential Comment PT 11.7 H INR 1.2 APTT 24.7 Puncture Site Patient Temperature O2 Saturation ABG pH ABG pCO2 ABG pO2 ABG HCO3 ABG O2 Content ABG Base Excess ABG Methemoglobin Aidan Test Hemoglobin Carboxyhemoglobin O2 Delivery Device Liter Flow Critical Value Sodium Potassium Chloride Carbon Dioxide Anion Gap BUN Creatinine Estimated GFR Random Glucose Calcium Phosphorus Magnesium Total Bilirubin AST ALT Alkaline Phosphatase Total Creatine Kinase CK-MB (CK-2) Troponin I B-Natriuretic Peptide Total Protein Albumin Lipase TSH 1.020 Urine Color Urine Clarity Urine pH Ur Specific [place]on Urine Protein Urine Glucose (UA) Urine Ketones Urine Occult Blood Urine Nitrate Urine Bilirubin Urine Urobilinogen Ur Leukocyte Esterase Urine WBC Ur Squamous Epith Cells Micro UA Comment Ur Microscopic Review Urine Culture Comments Urine Opiates Screen Neg Ur Barbiturates Screen Neg Ur Amphetamines Screen Neg U Benzodiazepines Scrn Neg Urine Cocaine Screen Neg U Cannabinoids Screen Pos H 04/27/18 04/27/18 04/27/18 19:00 19:05 22:45 CBC w Diff WBC RBC Hgb Hct MCV MCH MCHC RDW Plt Count MPV Neut % (Auto) Lymph % (Auto) [place] % (Auto) Eos % (Auto) Baso % (Auto) Neut # (Auto) Lymph # (Auto) [place] # (Auto) Eos # (Auto) Baso # (Auto) WBC Differential Differential Comment PT INR APTT Puncture Site Patient Temperature O2 Saturation ABG pH ABG pCO2 ABG pO2 ABG HCO3 ABG O2 Content ABG Base Excess ABG Methemoglobin Aidan Test Hemoglobin Carboxyhemoglobin O2 Delivery Device Liter Flow Critical Value Sodium Potassium Chloride Carbon Dioxide Anion Gap BUN Creatinine Estimated GFR Random Glucose Calcium Phosphorus Magnesium Total Bilirubin AST ALT Alkaline Phosphatase Total Creatine Kinase 205 180 CK-MB (CK-2) Troponin I 0.15 H 0.13 H B-Natriuretic Peptide Total Protein Albumin Lipase TSH Urine Color Yellow Urine Clarity Clear Urine pH 5.5 Ur Specific [place]on 1.020 Urine Protein 30 H Urine Glucose (UA) Negative Urine Ketones Negative Urine Occult Blood Negative Urine Nitrate Negative Urine Bilirubin Negative Urine Urobilinogen 0.2 Ur Leukocyte Esterase Negative Urine WBC 0-5 Ur Squamous Epith Cells 0-5 Micro UA Comment Culture not ind Ur Microscopic Review Microscopic reviewed Urine Culture Comments Culture not ind Urine Opiates Screen Ur Barbiturates Screen Ur Amphetamines Screen U Benzodiazepines Scrn Urine Cocaine Screen U Cannabinoids Screen 04/27/18 04/27/18 04/28/18 22:45 22:45 06:25 CBC w Diff WBC RBC Hgb Hct MCV MCH MCHC RDW Plt Count MPV Neut % (Auto) Lymph % (Auto) [place] % (Auto) Eos % (Auto) Baso % (Auto) Neut # (Auto) Lymph # (Auto) [place] # (Auto) Eos # (Auto) Baso # (Auto) WBC Differential Differential Comment PT INR APTT Puncture Site Patient Temperature O2 Saturation ABG pH ABG pCO2 ABG pO2 ABG HCO3 ABG O2 Content ABG Base Excess ABG Methemoglobin Aidan Test Hemoglobin Carboxyhemoglobin O2 Delivery Device Liter Flow Critical Value Sodium 134 L 132 L Potassium 3.4 L 4.0 Chloride 99 98 Carbon Dioxide 27.7 24.6 Anion Gap 7 9 BUN 25 H 28 H Creatinine 1.10 1.20 Estimated GFR 66 L 60 L Random Glucose 134 H 115 H Calcium 7.9 L 8.5 Phosphorus 2.5 Magnesium 1.9 2.0 Total Bilirubin AST ALT Alkaline Phosphatase Total Creatine Kinase CK-MB (CK-2) Troponin I B-Natriuretic Peptide Total Protein Albumin Lipase TSH Urine Color Urine Clarity Urine pH Ur Specific Pi[place]on Urine Protein Urine Glucose (UA) Urine Ketones Urine Occult Blood Urine Nitrate Urine Bilirubin Urine Urobilinogen Ur Leukocyte Esterase Urine WBC Ur Squamous Epith Cells Micro UA Comment Ur Microscopic Review Urine Culture Comments Urine Opiates Screen Ur Barbiturates Screen Ur Amphetamines Screen U Benzodiazepines Scrn Urine Cocaine Screen U Cannabinoids Screen 04/28/18 13:07 CBC w Diff WBC RBC Hgb Hct MCV MCH MCHC RDW Plt Count MPV Neut % (Auto) Lymph % (Auto) [place] % (Auto) Eos % (Auto) Baso % (Auto) Neut # (Auto) Lymph # (Auto) [place] # (Auto) Eos # (Auto) Baso # (Auto) WBC Differential Differential Comment PT INR APTT Puncture Site Left radial Patient Temperature 98.6 O2 Saturation 97 ABG pH 7.39 ABG pCO2 34 L ABG pO2 143 H ABG HCO3 20 L ABG O2 Content 21.3 H ABG Base Excess -3.8 L ABG Methemoglobin 0.4 Aidan Test Present Hemoglobin 15.4 Carboxyhemoglobin 1.3 O2 Delivery Device Nasal cannula Liter Flow 3.00 Critical Value No Sodium Potassium Chloride Carbon Dioxide Anion Gap BUN Creatinine Estimated GFR Random Glucose Calcium Phosphorus Magnesium Total Bilirubin AST ALT Alkaline Phosphatase Total Creatine Kinase CK-MB (CK-2) Troponin I B-Natriuretic Peptide Total Protein Albumin Lipase TSH Urine Color Urine Clarity Urine pH Ur Specific [place]on Urine Protein Urine Glucose (UA) Urine Ketones Urine Occult Blood Urine Nitrate Urine Bilirubin Urine Urobilinogen Ur Leukocyte Esterase Urine WBC Ur Squamous Epith Cells Micro UA Comment Ur Microscopic Review Urine Culture Comments Urine Opiates Screen Ur Barbiturates Screen Ur Amphetamines Screen U Benzodiazepines Scrn Urine Cocaine Screen U Cannabinoids Screen - Imaging Impressions Chest X-Ray 04/27/18 15:49 CONCLUSION: Negative examination. The heart is borderline enlarged. Caprini VTE Risk Assessment Caprini VTE Risk Assessment: Moderate/High Risk (score >= 2) Caprini Risk Assessment Model: Point Value = 1 Point Value = 2 Point Value = 3 Point Value = 5 Age 41-60 Minor surgery BMI > 25 kg/m2 Swollen legs Varicose veins or History of unexplained or recurrent spontaneous Oral contraceptives or hormone replacement Sepsis (< 1 month) Serious lung disease, including pneumonia (< 1 month) Abnormal pulmonary function Acute myocardial infarction Congestive heart failure (< 1 month) History of inflammatory bowel disease Medical patient at bed rest Age 61-74 Arthroscopic surgery Major open surgery (> 45 min) Laparoscopic surgery (> 45 min) Malignancy Confined to bed (> 72 hours) Immobilizing plaster cast Central venous access Age >= 75 History of VTE Family history of VTE Factor V Leiden Prothrombin [id number] Lupus anticoagulant Anticardiolipin antibodies Elevated serum homocysteine Heparin-induced thrombocytopenia Other congenital or acquired thrombophilia Stroke (< 1 month) Elective arthroplasty Hip, pelvis, or leg fracture Acute spinal cord injury (< 1 month) Prophylaxis Regimen: Total Risk Factor Score Risk Level Prophylaxis Regimen 0-1 Low Early ambulation 2 Moderate Order ONE of the following: *Sequential Compression Device (SCD) *Heparin 5000 units SQ BID 3-4 Higher Order ONE of the following medications: *Heparin 5000 units SQ TID *Enoxaparin/Lovenox 40 mg SQ daily (WT < 150 kg, CrCl > 30 mL/min) *Enoxaparin/Lovenox 30 mg SQ daily (WT < 150 kg, CrCl > 10-29 mL/min) *Enoxaparin/Lovenox 30 mg SQ BID (WT < 150 kg, CrCl > 30 mL/min) AND/OR *Sequential Compression Device (SCD) 5 or more Highest Order ONE of the following medications: *Heparin 5000 units SQ TID (Preferred with Epidurals) *Enoxaparin/Lovenox 40 mg SQ daily (WT < 150 kg, CrCl > 30 mL/min) *Enoxaparin/Lovenox 30 mg SQ daily (WT < 150 kg, CrCl > 10-29 mL/min) *Enoxaparin/Lovenox 30 mg SQ BID (WT < 150 kg, CrCl > 30 mL/min) AND *Sequential Compression Device (SCD) Assessment and Plan - Plan This is a 68-year-old male with a history of hypertension, herpes and bilateral lower extremity edema. He presents to the emergency department because of worsening bilateral lower extremity edema including scrotal and dyspnea. On exam he has anasarca. BNP 2500. Also has a troponin of 0.[address] elevation. CHF exacerbation with anasarca. Continue IV diuresis with Lasix, CHF education , I/0 with 1.5 L fluid restriction and monitor weight. Obtain 2D echo. Elevated troponin. Denies chest pain. Aspirin and that the boni. Consult cardiology. Hyponatremia likely secondary to CHF. He is asymptomatic. Will monitor Wound care. DVT prophylaxis with SCD and subcu heparin Discharge Planning: PT eval
--- NOTE | 2018-04-28 13:56 | ECHRPT ---
Indication: HEART FAILURE CONCLUSIONS Normal left ventricular size. Wall thickness is normal. The left ventricular systolic function is severely reduced with an estimated ejection fraction less than 20%. There are findings consistent with ischemic cardiomyopathy. No atrial level shunt is demonstrated by color flow Doppler interrogation. [id number] mitral valve regurgitation. There is moderate to severe tricuspid valve regurgitation. The estimated pulmonary arterial pressure is 46 mmHg. Small pleural effusion. BP: / HR: Rhythm: Atrial fibrillation MEASUREMENTS (Male / Female) Normal Values Technical Quality:Fair 2D ECHO LV Diastolic Diameter PLAX 5.8 cm 4.2 - 5.9 / 3.9 - 5.3 cm LV Systolic Diameter PLAX 5.5 cm IVS Diastolic Thickness 0.9 cm 0.6 - 1.0 / 0.6 - 0.9 cm LVPW Diastolic Thickness 0.9 cm 0.6 - 1.0 / 0.6 - 0.9 cm LV Relative Wall Thickness 0.3 RV Internal Dim ED PLAX 3.5 cm LVOT Diameter 2.4 cm Aortic Root Diameter 3.3 cm LA Systolic Diameter LX 3.3 cm 3.0 - 4.0 / 2.7 - 3.8 cm M-MODE AV Cusp Separation MM 2.0 cm DOPPLER LVOT Peak Velocity 27.8 cm/s LVOT Peak Gradient 0.3 mmHg LVOT Velocity Time Integral 2.5 cm Mitral E Point Velocity 80.9 cm/s Mitral A Point Velocity 39.0 cm/s Mitral E to A Ratio 2.1 LV E' Lateral Velocity 8.5 cm/s Mitral E to LV E' Lateral Ratio 9.5 LV E' Septal Velocity 5.8 cm/s Mitral E to LV E' Septal Ratio 14.1 TR Peak Velocity 300.0 cm/s TR Peak Gradient 36.0 mmHg Right Atrial Pressure 10.0 mmHg Pulmonary Artery Systolic Pressu 46.0 mmHg Right Ventricular Systolic Press 46.0 mmHg PV Peak Velocity 42.9 cm/s PV Peak Gradient 0.7 mmHg FINDINGS LEFT VENTRICLE Normal left ventricular size. Wall thickness is normal. The left ventricular systolic function is severely reduced with an estimated ejection fraction less than 20%. There are findings consistent with ischemic cardiomyopathy. RIGHT VENTRICLE Normal right ventricular size and systolic function. LEFT ATRIUM The left atrial size is normal. RIGHT ATRIUM The right atrial size is normal. ATRIAL SEPTUM No atrial level shunt is demonstrated by color flow Doppler interrogation. AORTA The aortic root and proximal ascending aorta are normal in size on limited imaging. MITRAL VALVE [id number] mitral valve regurgitation. AORTIC VALVE Trileaflet aortic valve. No aortic valve stenosis or regurgitation. TRICUSPID VALVE There is moderate to severe tricuspid valve regurgitation. The estimated pulmonary arterial pressure is 46 mmHg. PULMONARY VALVE No pulmonary valve regurgitation or stenosis. VESSELS The inferior vena cava is normal in size. PERICARDIUM No pericardial effusion. Small pleural effusion. Dash Brody MD, FACC (Electronically Signed) Final Date:28 April 2018 13:55
--- NOTE | 2018-04-28 14:08 | XR ---
EXAM DATE: 04/28/2018 1:58 PM EDT AGE/SEX: 68 years / Male INDICATIONS: Short of breath. CLINICAL DATA: This is the patient's subsequent encounter. Patient reports that signs and symptoms h ave been present for 3 days and indicates a pain score of 0/10. MEDICAL/SURGICAL HISTORY: None. None. COMPARISON: HPO, CHEST 1V SINGLE AP, 04/27/2018. . FINDINGS: The heart is enlarged. Bibasilar patchy densities are noted consistent with atelectasis and/or infilt rates. Clinical correlation is recommended. CONCLUSION: 1. Bibasilar patchy densities consistent with atelectasis and/or infiltrates. Clinical correlation i s recommended. 2. Cardiomegaly. Electronically signed by: Jimbo Roman MD 04/28/2018 2:06 PM EDT
--- NOTE | 2018-04-28 16:17 | P.CONCA ---
History of Present Illness Primary Care Provider: UNKNOWN Family Provider: UNKNOWN Chief Complaint: Shortness of breath History of Present Illness: 68-year-old male with a past medical history of hypertension who presented for lower extremity swelling. Patient is not a great historian. Reports he has had lower extremity swelling for the past 3 years since he was previously in the hospital and was started on Norvasc, which was discontinued. He states that lower extremity swelling has come and gone since then. He reports worsening shortness of breath over the past 3 weeks. He denies any chest pain. He reports that he may have had congestive heart failure before. He denies any other history of heart disease that he knows about and denies ever having a heart catheterization, stent, or stress test. Chest x-ray shows pulmonary vascular engorgement. Echocardiogram shows EF 20%. EKG shows occasional to frequent PACs, NSR. Telemetry overnight shows frequent PACs, atrial runs, NSVT up to 8 beats. Troponin 0 0.13, 0.15, 0.13. Review of Systems All other systems reviewed negative except as stated in HPI [facility] - History History Provided By: Patient, Medical Record - Medical History Medical History: Medical History (Last Updated 04/28/18 @ 16:14 by ADAM Rodgers) BPH (benign prostatic hyperplasia) Edema HTN (hypertension) Herpes - Surgical History Surgical History: Surgical History (Last Reviewed 04/28/18 @ 13:30 by Jason Bean MD) Hx of tonsillectomy - Family History Family History: Family History (Last Updated 04/28/18 @ 13:30 by Jason Bean MD) Other CVA (cerebral vascular accident) - Tobacco History Second Hand Smoke Exposure: Yes Tobacco Use In Past 30 Days: Yes Smoking Status: Heavy tobacco smoker Tobacco Type: Cigarettes - Alcohol History How Often Do You Have a Drink Containing Alcohol: 4 or more times a week - Substance Use History Substance History: Active Abuse - Substance Use Type Marijuana Status: Active Route Used: Inhalation Frequency: daily Last Used: yesterday - Immunization History Tetanus Immunization: <5 Years Hx Influenza Vaccine This Season: No Medications and Allergies Active Medications: Active Medications Acetaminophen (Tylenol) 650 mg PO Q4H PRN PRN Reason: Temp > 100.4 Acyclovir (Zovirax) 400 mg PO TID DAVI Last Admin: 04/28/18 13:09 Dose: 400 mg Al Hydrox/Mg Hydrox/Simethicone (Mag-Al Plus Susp Liq) 30 ml PO Q6H PRN PRN Reason: DYSPEPSIA Al Hydroxide/Mg Hydroxide (Milk Of Magnesia Liq) 30 ml PO DAILY PRN PRN Reason: SEVERE CONSITIPATION Aspirin (Aspirin) 325 mg PO DAILY [facility] Last Admin: 04/28/18 10:09 Dose: 325 mg Calcium Carbonate (Tums Chew) 1,000 mg CHEW TID PRN PRN Reason: DYSPEPSIA Carvedilol (Coreg) 3.125 mg PO BID [facility] Last Admin: 04/28/18 10:24 Dose: 3.125 mg Clonidine HCl (Catapres) 0.1 mg PO Q6HR PRN PRN Reason: SBP>180 DBP>100 Docusate Sodium (Colace) 100 mg PO BID PRN PRN Reason: CONSTIPATION Enalaprilat (Vasotec Inj) 1.25 mg IV.PUSH Q6H PRN PRN Reason: SEE LABEL COMMENTS Furosemide (Lasix Inj) 40 mg IV.PUSH BID@0900,1800 [facility] Heparin Sodium (Porcine) (Heparin Inj) 5,000 units SQ Q12H [facility] Last Admin: 04/28/18 06:46 Dose: 5,000 units Hydroxyzine Pamoate (Vistaril) 25 mg PO Q6H PRN PRN Reason: ANXIETY AND/OR INSOMNIA Last Admin: 04/28/18 15:15 Dose: 25 mg Lisinopril (Prinivil) 5 mg PO DAILY [facility] Nitroglycerin (Nitrostat Sl) 0.4 mg SL Q5M PRN PRN Reason: CHEST PAIN Ondansetron HCl (Zofran Inj) 4 mg IV.PUSH Q6H PRN PRN Reason: NAUSEA Potassium Chloride (Klor-Con 8) 8 meq PO DAILY [facility] Last Admin: 04/28/18 10:07 Dose: 8 meq Senna/Docusate Sodium (Latasha-Colace) 1 tab PO BID PRN PRN Reason: CONSTIPATION Sodium Chloride (Ns Flush) 2 ml IV.FLUSH BID [facility] Last Admin: 04/28/18 10:13 Dose: 2 ml Sodium Chloride (Ns Flush) 2 ml IV.FLUSH PRN PRN PRN Reason: FLUSH AFTER USING IV ACCESS Allergies Allergy/AdvReac Type Severity Reaction Status Date / Time No Known Allergies Allergy Verified 04/27/18 14:57 Exam Vital signs: Vital Signs 04/27/18 17:00 04/27/18 18:22 04/27/18 21:12 Temperature Pulse Rate 120 H 98 H Respiratory Rate 17 15 Blood Pressure 119/97 H 98/85 L Pulse Oximetry 97 96 99 04/27/18 21:47 04/27/18 22:00 04/27/18 22:26 Temperature 98.3 F Pulse Rate 118 H 120 H 122 H Respiratory Rate 22 24 29 H Blood Pressure 109/91 H 126/93 H 124/89 Pulse Oximetry 04/27/18 22:32 04/27/18 23:00 04/28/18 00:00 Temperature 98.4 F Pulse Rate 110 H 120 H Respiratory Rate 14 24 Blood Pressure 103/84 113/82 Pulse Oximetry 97 97 04/28/18 01:06 04/28/18 02:00 04/28/18 03:00 Temperature Pulse Rate 112 H 120 H 120 H Respiratory Rate 24 18 22 Blood Pressure 108/93 H 134/85 116/85 Pulse Oximetry 04/28/18 04:06 04/28/18 05:06 04/28/18 05:57 Temperature 98.3 F Pulse Rate 114 H 112 H Respiratory Rate 15 25 H Blood Pressure 119/96 H 113/96 H Pulse Oximetry 97 04/28/18 06:06 04/28/18 07:06 04/28/18 07:55 Temperature 97.4 F L Pulse Rate 116 H 116 H 122 H Respiratory Rate 24 22 Blood Pressure 95/73 L 151/101 H Pulse Oximetry 98 04/28/18 08:08 04/28/18 08:26 04/28/18 08:27 Temperature Pulse Rate 118 H Respiratory Rate 34 H Blood Pressure 130/113 H Pulse Oximetry 99 04/28/18 09:00 04/28/18 10:00 04/28/18 11:00 Temperature Pulse Rate 114 H 114 H 120 H Respiratory Rate 16 28 H 28 H Blood Pressure 135/95 H 127/96 H 135/108 H Pulse Oximetry 04/28/18 12:00 04/28/18 13:00 04/28/18 13:09 Temperature 97.2 F L Pulse Rate 104 H 108 H Respiratory Rate 25 H 27 H 20 Blood Pressure 109/92 H 110/93 H Pulse Oximetry 04/28/18 14:00 Temperature Pulse Rate 108 H Respiratory Rate 29 H Blood Pressure 108/82 Pulse Oximetry Intake & Output 04/27/18 04/28/18 04/28/18 18:59 06:59 18:59 Intake Total 1391 / 1391 Output Total 1425 / 1425 Balance -34 / -34 Weight 191 lb 12.835 oz 191 lb 5.78 oz Intake: Oral 1391 / 1391 Output: Urine 1425 / 1425 Other: # Voids 2 Date of Last Bowel Movement 04/28/18 Weight On Admission 191 lb 5.78 oz Narrative: GENERAL: Well-developed well-nourished. In no acute distress. NECK: No carotid bruits. No JVD. CARDIOVASCULAR: Regular rate and rhythm. No murmur appreciated. RESPIRATORY: No accessory muscle use. Clear to auscultation. Breath sounds equal bilaterally. MUSCULOSKELETAL: No clubbing or cyanosis. 3+ bilateral lower extremity pitting edema. NEUROLOGICAL: Awake and alert. Normal speech. Results 04/27/18 16:12 04/28/18 06:25 Cardiac Enzymes 04/27/18 04/27/18 04/27/18 Range/Units 16:12 16:12 19:05 AST 36 (15-37) U/L CK-MB (CK-2) 8.8 H (0.5-3.6) ng/mL Troponin I 0.13 H 0.15 H (0.02-0.05) ng/mL B-Natriuretic Peptide 2493 H (0-100) pg/mL 04/27/18 Range/Units 22:45 AST (15-37) U/L CK-MB (CK-2) (0.5-3.6) ng/mL Troponin I 0.13 H (0.02-0.05) ng/mL B-Natriuretic Peptide (0-100) pg/mL Coagulation 04/27/18 04/27/18 Range/Units 16:12 16:12 PT 11.7 H (9.8-11.6) sec APTT 24.7 (24.3-30.1) sec B-Natriuretic Peptide 2493 H (0-100) pg/mL CBC 04/27/18 Range/Units 16:12 WBC 6.4 (4.0-11.0) th/mm3 RBC 4.58 (4.50-5.90) mil/mm3 Hgb 15.2 (13.0-17.0) gm/dL Hct 45.0 (39.0-51.0) % Plt Count 123 L (150-450) th/mm3 Neut # (Auto) 5.0 (1.8-7.7) th/mm3 Lymph # (Auto) 0.5 L (1.0-4.8) th/mm3 [place] # (Auto) 0.8 (0.0-0.9) th/mm3 Eos # (Auto) 0.0 (0.0-0.4) th/mm3 Baso # (Auto) 0.1 (0.0-0.2) th/mm3 Comprehensive Metabolic Panel 04/27/18 04/27/18 04/28/18 Range/Units 16:12 22:45 06:25 Sodium 133 L 134 L 132 L (136-145) meq/L Potassium 3.8 3.4 L 4.0 (3.5-5.1) meq/L Chloride 101 99 98 (98-107) meq/L Carbon Dioxide 23.6 27.7 24.6 (21.0-32.0) meq/L BUN 27 H 25 H 28 H (7-18) mg/dL Creatinine 1.10 1.10 1.20 (0.60-1.30) mg/dL Calcium 8.3 L 7.9 L 8.5 (8.5-10.1) mg/dL AST 36 (15-37) U/L ALT 28 (12-78) U/L Alkaline Phosphatase 60 (45-117) U/L Total Protein 5.3 L (6.4-8.2) g/dL Albumin 2.6 L (3.4-5.0) g/dL Intake and Output 04/28/18 04/28/18 04/28/18 06:59 14:59 22:59 Intake Total 600 / 600 Output Total 200 / 200 Balance 400 / 400 Intake: Oral 600 / 600 Output: Urine 200 / 200 Other: Date of Last Bowel Movement 04/28/18 Weight 191 lb 5.78 oz - Imaging and Cardiology Imaging: Impressions Chest X-Ray 04/27/18 15:49 CONCLUSION: Negative examination. The heart is borderline enlarged. Chest X-Ray 04/28/18 00:00 CONCLUSION: 1. Bibasilar patchy densities consistent with atelectasis and/or infiltrates. Clinical correlation is recommended. 2. Cardiomegaly. Assessment and Plan - Plan 68-year-old male with a past medical history of hypertension who presented for lower extremity swelling Acute systolic CHF: Increase diuresis to IV Lasix 40 mg twice daily. Monitor I' s and O's. Cardiomyopathy: Severe. Unclear onset. Need ischemic evaluation, will plan on Lexiscan in the a.m. Low-dose carvedilol started, will add low-dose lisinopril. Consider LifeVest at discharge. Discussed Condition With: Patient, hospitalist, Dr. Brody
[2018-04-29] MEDS: Heparin - SQ 10,000 UNITS/ML Vial SQ SCH ×2 (06:15→18:39)
[2018-04-29 06:36] LABS: Potassium 4.4 meq/L (3.5-5.1)
[2018-04-29 06:39] LABS: Calcium 8.3 mg/dL (8.5-10.1)
[2018-04-29 06:40] LABS: Carbon Dioxide 24.4 meq/L (21.0-32.0); Magnesium 1.9 mg/dL (1.5-2.5)
--- NOTE | 2018-04-29 08:19 | P.PNCA ---
Subjective Interval history: Seen with RN at bedside. Patient reports scrotal edema is improved some with diuresis, but still short of breath. Not much urine output overnight, although patient did void into the toilet and it was not measured. Telemetry still with some NSVT overnight, up to 6 beats. Medications and Allergies Active Medications: Active Medications Acetaminophen (Tylenol) 650 mg PO Q4H PRN PRN Reason: Temp > 100.4 Acyclovir (Zovirax) 400 mg PO TID [facility] Last Admin: 04/28/18 17:13 Dose: 400 mg Al Hydrox/Mg Hydrox/Simethicone (Mag-Al Plus Susp Liq) 30 ml PO Q6H PRN PRN Reason: DYSPEPSIA Al Hydroxide/Mg Hydroxide (Milk Of Magnesia Liq) 30 ml PO DAILY PRN PRN Reason: SEVERE CONSITIPATION Aspirin (Aspirin) 325 mg PO DAILY [facility] Last Admin: 04/28/18 10:09 Dose: 325 mg Calcium Carbonate (Tums Chew) 1,000 mg CHEW TID PRN PRN Reason: DYSPEPSIA Carvedilol (Coreg) 3.125 mg PO BID [facility] Last Admin: 04/28/18 23:49 Dose: 3.125 mg Clonidine HCl (Catapres) 0.1 mg PO Q6HR PRN PRN Reason: SBP>180 DBP>100 Docusate Sodium (Colace) 100 mg PO BID PRN PRN Reason: CONSTIPATION Enalaprilat (Vasotec Inj) 1.25 mg IV.PUSH Q6H PRN PRN Reason: SEE LABEL COMMENTS Heparin Sodium (Porcine) (Heparin Inj) 5,000 units SQ Q12H [facility] Last Admin: 04/29/18 06:15 Dose: 5,000 units Hydroxyzine Pamoate (Vistaril) 25 mg PO Q6H PRN PRN Reason: ANXIETY AND/OR INSOMNIA Last Admin: 04/28/18 15:15 Dose: 25 mg Lisinopril (Prinivil) 5 mg PO DAILY [facility] Lorazepam (Ativan) 0.5 mg PO Q6HR PRN PRN Reason: ANXIETY AND/OR AGITATION Nitroglycerin (Nitrostat Sl) 0.4 mg SL Q5M PRN PRN Reason: CHEST PAIN Ondansetron HCl (Zofran Inj) 4 mg IV.PUSH Q6H PRN PRN Reason: NAUSEA Potassium Chloride (Klor-Con 8) 8 meq PO DAILY [facility] Last Admin: 04/28/18 10:07 Dose: 8 meq Senna/Docusate Sodium (Latasha-Colace) 1 tab PO BID PRN PRN Reason: CONSTIPATION Sodium Chloride (Ns Flush) 2 ml IV.FLUSH BID [facility] Last Admin: 04/28/18 23:50 Dose: 2 ml Sodium Chloride (Ns Flush) 2 ml IV.FLUSH PRN PRN PRN Reason: FLUSH AFTER USING IV ACCESS Allergies Allergy/AdvReac Type Severity Reaction Status Date / Time No Known Allergies Allergy Verified 04/27/18 14:57 Physical Exam Vital signs: Vital Signs 04/28/18 08:26 04/28/18 08:27 04/28/18 09:00 Temperature Pulse Rate 114 H Respiratory Rate 16 Blood Pressure 130/113 H 135/95 H Pulse Oximetry 99 04/28/18 10:00 04/28/18 11:00 04/28/18 12:00 Temperature 97.2 F L Pulse Rate 114 H 120 H 104 H Respiratory Rate 28 H 28 H 25 H Blood Pressure 127/96 H 135/108 H 109/92 H Pulse Oximetry 04/28/18 13:00 04/28/18 13:09 04/28/18 14:00 Temperature Pulse Rate 108 H 108 H Respiratory Rate 27 H 20 29 H Blood Pressure 110/93 H 108/82 Pulse Oximetry 04/28/18 15:00 04/28/18 16:00 04/28/18 17:06 Temperature 97.5 F L Pulse Rate 104 H 106 H 112 H Respiratory Rate 16 25 H 33 H Blood Pressure 103/88 113/96 H 131/85 Pulse Oximetry 100 96 04/28/18 18:00 04/28/18 19:00 04/28/18 20:00 Temperature 97.6 F Pulse Rate 112 H 112 H 114 H Respiratory Rate 24 22 25 H Blood Pressure 129/89 118/91 H Pulse Oximetry 100 99 92 L 04/28/18 20:05 04/28/18 21:00 04/28/18 22:00 Temperature Pulse Rate 118 H 110 H 104 H Respiratory Rate 28 H 12 10 L Blood Pressure 132/95 H Pulse Oximetry 88 L 97 04/28/18 23:00 04/29/18 00:00 04/29/18 00:05 Temperature 97.4 F L Pulse Rate 106 H 104 H 104 H Respiratory Rate 31 H 32 H 36 H Blood Pressure 97/88 L Pulse Oximetry 95 97 89 L 04/29/18 01:00 04/29/18 02:00 04/29/18 03:00 Temperature Pulse Rate 100 H 104 H 104 H Respiratory Rate 9 L 31 H 27 H Blood Pressure Pulse Oximetry 100 89 L 91 L 04/29/18 04:00 04/29/18 04:14 Temperature 97.6 F Pulse Rate 100 H 102 H Respiratory Rate 16 12 Blood Pressure 120/80 Pulse Oximetry 94 L 91 L Intake & Output 04/28/18 04/29/18 04/29/18 18:59 06:59 18:59 Intake Total 650 / 650 240 / 240 Output Total 450 / 450 Balance 200 / 200 240 / 240 Weight 189 lb 6.033 oz Intake: Oral 650 / 650 240 / 240 Output: Urine 450 / 450 Other: # Voids 5 Date of Last Bowel Movement 04/28/18 04/29/18 # Bowel Movements 2 5 Narrative: GENERAL: Well-developed well-nourished. In no acute distress. NECK: No carotid bruits. No JVD. CARDIOVASCULAR: Regular rate and rhythm. No murmur appreciated. RESPIRATORY: No accessory muscle use. Clear to auscultation. Breath sounds equal bilaterally. MUSCULOSKELETAL: No clubbing or cyanosis. Anasarca with bilateral lower extremity edema 3+ up to the groin. NEUROLOGICAL: Awake and alert. Normal speech. Results 04/27/18 16:12 04/29/18 06:07 Cardiac Enzymes 04/27/18 04/27/18 04/27/18 Range/Units 16:12 16:12 19:05 AST 36 (15-37) U/L CK-MB (CK-2) 8.8 H (0.5-3.6) ng/mL Troponin I 0.13 H 0.15 H (0.02-0.05) ng/mL B-Natriuretic Peptide 2493 H (0-100) pg/mL 04/27/18 Range/Units 22:45 AST (15-37) U/L CK-MB (CK-2) (0.5-3.6) ng/mL Troponin I 0.13 H (0.02-0.05) ng/mL B-Natriuretic Peptide (0-100) pg/mL Coagulation 04/27/18 04/27/18 Range/Units 16:12 16:12 PT 11.7 H (9.8-11.6) sec APTT 24.7 (24.3-30.1) sec B-Natriuretic Peptide 2493 H (0-100) pg/mL CBC 04/27/18 Range/Units 16:12 WBC 6.4 (4.0-11.0) th/mm3 RBC 4.58 (4.50-5.90) mil/mm3 Hgb 15.2 (13.0-17.0) gm/dL Hct 45.0 (39.0-51.0) % Plt Count 123 L (150-450) th/mm3 Neut # (Auto) 5.0 (1.8-7.7) th/mm3 Lymph # (Auto) 0.5 L (1.0-4.8) th/mm3 [place] # (Auto) 0.8 (0.0-0.9) th/mm3 Eos # (Auto) 0.0 (0.0-0.4) th/mm3 Baso # (Auto) 0.1 (0.0-0.2) th/mm3 Comprehensive Metabolic Panel 04/27/18 04/27/18 04/28/18 Range/Units 16:12 22:45 06:25 Sodium 133 L 134 L 132 L (136-145) meq/L Potassium 3.8 3.4 L 4.0 (3.5-5.1) meq/L Chloride 101 99 98 (98-107) meq/L Carbon Dioxide 23.6 27.7 24.6 (21.0-32.0) meq/L BUN 27 H 25 H 28 H (7-18) mg/dL Creatinine 1.10 1.10 1.20 (0.60-1.30) mg/dL Calcium 8.3 L 7.9 L 8.5 (8.5-10.1) mg/dL AST 36 (15-37) U/L ALT 28 (12-78) U/L Alkaline Phosphatase 60 (45-117) U/L Total Protein 5.3 L (6.4-8.2) g/dL Albumin 2.6 L (3.4-5.0) g/dL 04/29/18 Range/Units 06:07 Sodium 134 L (136-145) meq/L Potassium 4.4 (3.5-5.1) meq/L Chloride 99 (98-107) meq/L Carbon Dioxide 24.4 (21.0-32.0) meq/L BUN 32 H (7-18) mg/dL Creatinine 1.20 (0.60-1.30) mg/dL Calcium 8.3 L (8.5-10.1) mg/dL AST (15-37) U/L ALT (12-78) U/L Alkaline Phosphatase (45-117) U/L Total Protein (6.4-8.2) g/dL Albumin (3.4-5.0) g/dL Intake and Output 04/28/18 04/29/18 04/29/18 22:59 06:59 14:59 Intake Total 650 / 650 240 / 240 Output Total 450 / 450 Balance 200 / 200 240 / 240 Intake: Oral 650 / 650 240 / 240 Output: Urine 450 / 450 Other: # Voids 5 Date of Last Bowel Movement 04/28/18 04/29/18 # Bowel Movements 2 5 Weight 189 lb 6.033 oz - Imaging and Cardiology Imaging: Impressions Chest X-Ray 04/27/18 15:49 CONCLUSION: Negative examination. The heart is borderline enlarged. Chest X-Ray 04/28/18 00:00 CONCLUSION: 1. Bibasilar patchy densities consistent with atelectasis and/or infiltrates. Clinical correlation is recommended. 2. Cardiomegaly. Assessment and Plan - Plan 68-year-old male with a past medical history of hypertension who presented for lower extremity swelling Acute systolic CHF: Increase diuresis to IV Lasix 40 mg 3 times daily. Could consider addition of spironolactone as BP allows. Monitor I's and O's. Cardiomyopathy: Severe. Unclear onset. Needs ischemic evaluation, n.p.o. for Lexiscan today. Low-dose carvedilol and lisinopril started. Consider LifeVest at discharge. NSVT: Beta-boni added, titrate dose as BP allows.
[2018-04-29] MEDS ORDERED: Lisinopril 5 MG Tablet PO SCH (09:00)
[2018-04-29] MEDS: Aspirin 325 MG Tablet PO SCH (09:25)
[2018-04-29] MEDS: Acyclovir 200 MG Capsule PO SCH ×3 (09:25→18:39)
[2018-04-29] MEDS ORDERED: Regadenoson Inj 0.4 MG/5 ML Syringe IV.PUSH ONE (11:18)
--- NOTE | 2018-04-29 12:38 | P.PN ---
Subjective Interval history: Follow-up heart failure. He has no new complaints. Improving shortness of breath. Lasix increased by cardiology. EF of 20% Physical Exam Vital signs: Vital Signs 04/28/18 13:00 04/28/18 13:09 04/28/18 14:00 Temperature Pulse Rate 108 H 108 H Respiratory Rate 27 H 20 29 H Blood Pressure 110/93 H 108/82 Pulse Oximetry 04/28/18 15:00 04/28/18 16:00 04/28/18 17:06 Temperature 97.5 F L Pulse Rate 104 H 106 H 112 H Respiratory Rate 16 25 H 33 H Blood Pressure 103/88 113/96 H 131/85 Pulse Oximetry 100 96 04/28/18 18:00 04/28/18 19:00 04/28/18 20:00 Temperature 97.6 F Pulse Rate 112 H 112 H 114 H Respiratory Rate 24 22 25 H Blood Pressure 129/89 118/91 H Pulse Oximetry 100 99 92 L 04/28/18 20:05 04/28/18 21:00 04/28/18 22:00 Temperature Pulse Rate 118 H 110 H 104 H Respiratory Rate 28 H 12 10 L Blood Pressure 132/95 H Pulse Oximetry 88 L 97 04/28/18 23:00 04/29/18 00:00 04/29/18 00:05 Temperature 97.4 F L Pulse Rate 106 H 104 H 104 H Respiratory Rate 31 H 32 H 36 H Blood Pressure 97/88 L Pulse Oximetry 95 97 89 L 04/29/18 01:00 04/29/18 02:00 04/29/18 03:00 Temperature Pulse Rate 100 H 104 H 104 H Respiratory Rate 9 L 31 H 27 H Blood Pressure Pulse Oximetry 100 89 L 91 L 04/29/18 04:00 04/29/18 04:14 04/29/18 07:21 Temperature 97.6 F Pulse Rate 100 H 102 H 102 H Respiratory Rate 16 12 32 H Blood Pressure 120/80 127/91 H Pulse Oximetry 94 L 91 L 92 L 04/29/18 08:00 04/29/18 09:38 04/29/18 12:25 Temperature Pulse Rate 106 H 100 H 98 H Respiratory Rate 29 H 25 H Blood Pressure 140/100 H 110/88 Pulse Oximetry 95 100 98 Intake & Output 04/28/18 04/29/18 04/29/18 18:59 06:59 18:59 Intake Total 650 / 650 240 / 240 Output Total 450 / 450 Balance 200 / 200 240 / 240 Weight 85.9 kg Intake: Oral 650 / 650 240 / 240 Output: Urine 450 / 450 Other: # Voids 5 Date of Last Bowel Movement 04/28/18 04/29/18 04/29/18 # Bowel Movements 2 5 Narrative: GENERAL: Well-developed well-nourished. In no acute distress. NECK: No carotid bruits. No JVD. CARDIOVASCULAR: Regular rate and rhythm. No murmur appreciated. RESPIRATORY: No accessory muscle use. Clear to auscultation. Breath sounds equal bilaterally. MUSCULOSKELETAL: No clubbing or cyanosis. Anasarca with bilateral lower extremity edema 3+ up to the groin. Scrotal edema much improved NEUROLOGICAL: Awake and alert. Normal speech. Results - Labs CBC & Chem 7: 04/27/18 16:12 04/29/18 06:07 Laboratory Results - last 24 hr 04/28/18 04/29/18 13:07 06:07 Puncture Site Left radial Patient Temperature 98.6 O2 Saturation 97 ABG pH 7.39 ABG pCO2 34 L ABG pO2 143 H ABG HCO3 20 L ABG O2 Content 21.3 H ABG Base Excess -3.8 L ABG Methemoglobin 0.4 Aidan Test Present Hemoglobin 15.4 Carboxyhemoglobin 1.3 O2 Delivery Device Nasal cannula Liter Flow 3.00 Critical Value No Sodium 134 L Potassium 4.4 Chloride 99 Carbon Dioxide 24.4 Anion Gap 11 BUN 32 H Creatinine 1.20 Estimated GFR 60 L Random Glucose 106 Calcium 8.3 L Magnesium 1.9 - Imaging Impressions Chest X-Ray 04/28/18 00:00 CONCLUSION: 1. Bibasilar patchy densities consistent with atelectasis and/or infiltrates. Clinical correlation is recommended. 2. Cardiomegaly. Assessment and Plan - Plan This is a 68-year-old male with a history of hypertension, herpes and bilateral lower extremity edema. He presents to the emergency department because of worsening bilateral lower extremity edema including scrotal and dyspnea. On exam he has anasarca. BNP 2500. Also has a troponin of 0.[address] elevation. Acute systolic CHF exacerbation with anasarca. Continue IV diuresis with Lasix dose increased to 40 mg 3 times a day, CHF education, I/0 with 1.5 L fluid restriction and monitor weight. Uptitrate lisinopril and Coreg if tolerated. Also consider Aldactone. Will need LifeVest consult case management Elevated troponin. Denies chest pain. Lexiscan without ischemia. Aspirin and BB Consulted cardiology. Hyponatremia likely secondary to CHF. He is asymptomatic. Will monitor Wound care. DVT prophylaxis with SCD and subcu heparin Discharge Planning: PT dayo
[2018-04-29] MEDS: Acetaminophen 325 MG Tablet PO PRN ×2 (12:56→18:40)
--- NOTE | 2018-04-29 13:05 | ECG ---
Date Performed: 04/27/2018 Time Performed: 21:28:35 PTAGE: 68 years EKG: SINUS TACHYCARDIA WITH FREQUENT VENTRICULAR PREMATURE COMPLEXES WITH OCCASIONAL SUPRAVENTRI CULAR PREMATURE COMPLEXES INDETERMINATE AXIS LOW QRS VOLTAGE IN EXTREMITY LEADS INCOMPLETE RIGHT BUND LE BRANCH BLOCK NONSPECIFIC T-WAVE ABNORMALITY ABNORMAL ECG PREVIOUS TRACING : 04/27/2018 18.40 Compared to previous tracing, PVCs now noted DOCTOR: Fred Baca Interpretating Date/Time 04/29/2018 13:04:48
--- NOTE | 2018-04-29 13:13 | ECG ---
Date Performed: 04/27/2018 Time Performed: 18:40:58 PTAGE: 68 years EKG: SINUS TACHYCARDIA WITH OCCASIONAL SUPRAVENTRICULAR PREMATURE COMPLEXES LOW QRS VOLTAGE IN P RECORDIAL LEADS POSSIBLE RIGHT VENTRICULAR CONDUCTION DELAY LEFT ANTERIOR FASCICULAR BLOCK ABNORMAL E CG PREVIOUS TRACING : 04/27/2018 16.01 Since the previous tracing, no significant change noted DOCTOR: Fred Baca Interpretating Date/Time 04/29/2018 13:12:21
--- NOTE | 2018-04-29 13:21 | NM ---
EXAM DATE: 04/29/2018 12:47 PM EDT AGE/SEX: 68 years / Male INDICATIONS:Congestive heart failure. . Dyspnea. CLINICAL DATA: This is the patient's initial encounter. Patient reports that signs and symptoms have been present for 1 day and indicates a pain score of 0/10. MEDICAL/SURGICAL HISTORY: Cerebrovascular disease. Hypertension. Smoker. None. COMPARISON: No prior exams available for comparison. DOSE: 8.5 mCi Tc 99m Myoview at rest 29.3 mCi [id number] at rest 0.4 mg Lexiscan STRESS SYMPTOMS: None. EJECTION FRACTION: 14 % TECHNIQUE: The patient underwent pharmacologic stress with infusion of prescribed dose. Continuous ECG tracing was monitored during stress. Gated SPECT imaging was performed after stress and conventi onal SPECT imaging was performed at rest. The examination was performed on a SPECT/CT scanner, both attenuation and non-corrected datasets were reviewed. FINDINGS: Distribution: The maximum perfused segment at stress is in the bilateral wall. Perfusion Study: There is a moderate fixed apical defect as well as anterior wall defect. Gated Study: There are intact wall motion and wall thickening without hypokinetic or dyskinetic segm ents. The ejection fraction is calculated at 14%. RISK CATEGORY: High (>3% Annual Morality Rate) CONCLUSION: 1. Global hypokinesis with EF of 14% and dilated left ventricle. 2. No definite reversible perfusion defects are identified to suggest stress-induced myocardial isch emia at this time. Electronically signed by: Gavin Benavidez MD 04/29/2018 1:20 PM EDT
--- NOTE | 2018-04-29 13:30 | ECG ---
Date Performed: 04/27/2018 Time Performed: 16:01:29 PTAGE: 68 years EKG: SINUS TACHYCARDIA WITH FREQUENT VENTRICULAR PREMATURE COMPLEXES MARKED LEFT AXIS DEVIATION INCOMPLETE RIGHT BUNDLE BRANCH BLOCK ABNORMAL QRS-T ANGLE ABNORMAL ECG NO PREVIOUS TRACING DOCTOR: Fred Baca Interpretating Date/Time 04/29/2018 13:29:26
[2018-04-30] MEDS: Heparin - SQ 10,000 UNITS/ML Vial SQ SCH ×2 (05:47→18:01)
[2018-04-30 06:33] LABS: Potassium 4.2 meq/L (3.5-5.1)
[2018-04-30 06:36] LABS: Calcium 8.1 mg/dL (8.5-10.1)
[2018-04-30 06:37] LABS: Carbon Dioxide 25.8 meq/L (21.0-32.0)
--- NOTE | 2018-04-30 08:26 | P.PNCA ---
Subjective Interval history: Patient reports lower extremity and scrotal edema continues to improve some. Patient is not compliant using the urinal for accurate I and O checks, discussed with RN and the patient. Medications and Allergies Active Medications: Active Medications Acetaminophen (Tylenol) 650 mg PO Q4H PRN PRN Reason: Temp > 100.4 Last Admin: 04/29/18 18:40 Dose: 650 mg Acyclovir (Zovirax) 400 mg PO TID [facility] Last Admin: 04/29/18 18:39 Dose: 400 mg Al Hydrox/Mg Hydrox/Simethicone (Mag-Al Plus Susp Liq) 30 ml PO Q6H PRN PRN Reason: DYSPEPSIA Al Hydroxide/Mg Hydroxide (Milk Of Magnesia Liq) 30 ml PO DAILY PRN PRN Reason: SEVERE CONSITIPATION Aspirin (Aspirin) 325 mg PO DAILY [facility] Last Admin: 04/29/18 09:25 Dose: 325 mg Calcium Carbonate (Tums Chew) 1,000 mg CHEW TID PRN PRN Reason: DYSPEPSIA Carvedilol (Coreg) 3.125 mg PO BID [facility] Last Admin: 04/29/18 20:48 Dose: 3.125 mg Clonidine HCl (Catapres) 0.1 mg PO Q6HR PRN PRN Reason: SBP>180 DBP>100 Docusate Sodium (Colace) 100 mg PO BID PRN PRN Reason: CONSTIPATION Enalaprilat (Vasotec Inj) 1.25 mg IV.PUSH Q6H PRN PRN Reason: SEE LABEL COMMENTS Furosemide (Lasix Inj) 40 mg IV.PUSH BID@0900,1800 [facility] Heparin Sodium (Porcine) (Heparin Inj) 5,000 units SQ Q12H [facility] Last Admin: 04/30/18 05:47 Dose: 5,000 units Hydroxyzine Pamoate (Vistaril) 25 mg PO Q6H PRN PRN Reason: ANXIETY AND/OR INSOMNIA Last Admin: 04/29/18 20:48 Dose: 25 mg Lorazepam (Ativan) 0.5 mg PO Q6HR PRN PRN Reason: ANXIETY AND/OR AGITATION Metolazone (Zaroxolyn) 2.5 mg PO BID [facility] Nitroglycerin (Nitrostat Sl) 0.4 mg SL Q5M PRN PRN Reason: CHEST PAIN Ondansetron HCl (Zofran Inj) 4 mg IV.PUSH Q6H PRN PRN Reason: NAUSEA Potassium Chloride (Klor-Con 8) 8 meq PO DAILY [facility] Last Admin: 04/29/18 09:24 Dose: 8 meq Senna/Docusate Sodium (Latasha-Colace) 1 tab PO BID PRN PRN Reason: CONSTIPATION Sodium Chloride (Ns Flush) 2 ml IV.FLUSH BID [facility] Last Admin: 04/29/18 20:48 Dose: 2 ml Sodium Chloride (Ns Flush) 2 ml IV.FLUSH PRN PRN PRN Reason: FLUSH AFTER USING IV ACCESS Allergies Allergy/AdvReac Type Severity Reaction Status Date / Time No Known Allergies Allergy Verified 04/27/18 14:57 Physical Exam Vital signs: Vital Signs 04/29/18 09:38 04/29/18 12:25 04/29/18 17:43 Temperature Pulse Rate 100 H 98 H 98 H Respiratory Rate 29 H 25 H 30 H Blood Pressure 140/100 H 110/88 93/71 L Pulse Oximetry 100 98 04/29/18 20:00 04/30/18 00:00 04/30/18 04:00 Temperature 97.4 F L 97.4 F L 97.5 F L Pulse Rate 93 H 90 85 Respiratory Rate 18 25 H 20 Blood Pressure 105/77 90/65 L 76/61 L Pulse Oximetry 99 96 97 Intake & Output 04/29/18 04/30/18 04/30/18 18:59 06:59 18:59 Intake Total 780 / 780 160 / 160 Output Total 625 / 625 Balance 155 / 155 160 / 160 Weight 191 lb 12.835 oz Intake: Oral 780 / 780 160 / 160 Output: Urine 625 / 625 Other: # Voids 3 3 Date of Last Bowel Movement 04/29/18 04/29/18 # Bowel Movements 1 2 Narrative: GENERAL: Well-developed well-nourished. In no acute distress. NECK: No carotid bruits. No JVD. CARDIOVASCULAR: Regular rate and rhythm. No murmur appreciated. RESPIRATORY: No accessory muscle use. Clear to auscultation. Breath sounds equal bilaterally. MUSCULOSKELETAL: No clubbing or cyanosis. Anasarca with 3+ bilateral lower extremity pitting edema. NEUROLOGICAL: Awake and alert. Normal speech. Results 04/27/18 16:12 04/30/18 05:20 Comprehensive Metabolic Panel 04/29/18 04/30/18 Range/Units 06:07 05:20 Sodium 134 L 134 L (136-145) meq/L Potassium 4.4 4.2 (3.5-5.1) meq/L Chloride 99 99 (98-107) meq/L Carbon Dioxide 24.4 25.8 (21.0-32.0) meq/L BUN 32 H 39 H (7-18) mg/dL Creatinine 1.20 1.30 (0.60-1.30) mg/dL Calcium 8.3 L 8.1 L (8.5-10.1) mg/dL Intake and Output 04/29/18 04/30/18 04/30/18 22:59 06:59 14:59 Intake Total 780 / 780 160 / 160 Output Total 625 / 625 Balance 155 / 155 160 / 160 Intake: Oral 780 / 780 160 / 160 Output: Urine 625 / 625 Other: # Voids 3 3 Date of Last Bowel Movement 04/29/18 04/29/18 # Bowel Movements 1 2 Weight 191 lb 12.835 oz - Imaging and Cardiology Imaging: Impressions Chest X-Ray 04/28/18 00:00 CONCLUSION: 1. Bibasilar patchy densities consistent with atelectasis and/or infiltrates. Clinical correlation is recommended. 2. Cardiomegaly. Myocardial Perfusion Scan Nuc Med 04/29/18 00:00 CONCLUSION: 1. Global hypokinesis with EF of 14% and dilated left ventricle. 2. No definite reversible perfusion defects are identified to suggest stress- induced myocardial ischemia at this time. Assessment and Plan - Plan 68-year-old male with a past medical history of hypertension who presented for lower extremity swelling Acute systolic CHF: Change IV Lasix to 40 mg twice daily and add metolazone 2.5 mg twice daily. Strict I's and O's. Monitor renal function and electrolytes. Cardiomyopathy: Severe. Unclear onset. Nonischemic based on Lexiscan. Low- dose carvedilol started. BP did not tolerate addition of lisinopril, discontinue. Recommend LifeVest at discharge, patient agreeable. Will need 4 months of guideline directed medical therapy and then repeat echocardiogram for consideration of AICD, discussed with the patient. NSVT: Beta-boni added, titrate dose as BP allows. Discussed Condition With: Patient, RN, Dr. Brody
[2018-04-30] MEDS: Aspirin 325 MG Tablet PO SCH (09:45)
[2018-04-30] MEDS: Acyclovir 200 MG Capsule PO SCH ×3 (09:45→18:02)
--- NOTE | 2018-04-30 10:40 | P.PN ---
Subjective Interval history: Follow-up heart failure. He is doing okay on nasal cannula. Noncompliant with urine collection. SBP 70 this am Physical Exam Vital signs: Vital Signs 04/29/18 12:25 04/29/18 17:43 04/29/18 20:00 Temperature 97.4 F L Pulse Rate 98 H 98 H 93 H Respiratory Rate 25 H 30 H 18 Blood Pressure 110/88 93/71 L 105/77 Pulse Oximetry 98 99 04/30/18 00:00 04/30/18 04:00 04/30/18 10:01 Temperature 97.4 F L 97.5 F L Pulse Rate 90 85 85 Respiratory Rate 25 H 20 Blood Pressure 90/65 L 76/61 L Pulse Oximetry 96 97 04/30/18 10:09 04/30/18 10:15 Temperature Pulse Rate Respiratory Rate 20 Blood Pressure Pulse Oximetry 96 Intake & Output 04/29/18 04/30/18 04/30/18 18:59 06:59 18:59 Intake Total 780 / 780 160 / 160 Output Total 625 / 625 Balance 155 / 155 160 / 160 Weight 87 kg Intake: Oral 780 / 780 160 / 160 Output: Urine 625 / 625 Other: # Voids 3 3 Date of Last Bowel Movement 04/29/18 04/29/18 04/29/18 # Bowel Movements 1 2 Narrative: GENERAL: Well-developed well-nourished. In no acute distress. NECK: No carotid bruits. No JVD. CARDIOVASCULAR: Regular rate and rhythm. No murmur appreciated. RESPIRATORY: No accessory muscle use. Clear to auscultation. Breath sounds equal bilaterally. MUSCULOSKELETAL: No clubbing or cyanosis. Anasarca with 3+ bilateral lower extremity pitting edema. NEUROLOGICAL: Awake and alert. Normal speech. Results - Labs CBC & Chem 7: 04/27/18 16:12 04/30/18 05:20 Laboratory Results - last 24 hr 04/30/18 05:20 Sodium 134 L Potassium 4.2 Chloride 99 Carbon Dioxide 25.8 Anion Gap 9 BUN 39 H Creatinine 1.30 Estimated GFR 55 L Random Glucose 111 H Calcium 8.1 L Magnesium 2.0 - Imaging Impressions Myocardial Perfusion Scan Nuc Med 04/29/18 00:00 CONCLUSION: 1. Global hypokinesis with EF of 14% and dilated left ventricle. 2. No definite reversible perfusion defects are identified to suggest stress- induced myocardial ischemia at this time. - Procedures none Assessment and Plan - Plan This is a 68-year-old male with a history of hypertension, herpes and bilateral lower extremity edema. He presents to the emergency department because of worsening bilateral lower extremity edema including scrotal and dyspnea. On exam he has anasarca. BNP 2500. Also has a troponin of 0.[address] elevation. Acute systolic CHF exacerbation with anasarca. Stable. Continue IV diuresis with Lasix dose decreased to 40 mg 2 times a day secondary to hypotension, CHF education, I/0 with 1.5 L fluid restriction and monitor weight. Also discontinued lisinopril secondary to hypotension. Continue Coreg with history of NSVT. Will need LifeVest consult case management. Patient counselled Elevated troponin. Denies chest pain. Lexiscan without ischemia. Aspirin and BB Consulted cardiology. Hyponatremia likely secondary to CHF. He is asymptomatic. Will monitor Wound care. DVT prophylaxis with SCD and subcu heparin Discharge Planning: C PT/VN vs rehab with [facility]
[2018-05-01 05:35] LABS: Calcium 8.1 mg/dL (8.5-10.1); Carbon Dioxide 27.8 meq/L (21.0-32.0); Magnesium 1.7 mg/dL (1.5-2.5)
[2018-05-01] MEDS: Heparin - SQ 10,000 UNITS/ML Vial SQ SCH ×2 (06:19→17:30)
--- NOTE | 2018-05-01 07:39 | P.PNCA ---
Subjective Interval history: Patient reports he continues to feel better. Breathing improving, but not yet at baseline. Good urine output with negative fluid balance overnight. Medications and Allergies Allergies Allergy/AdvReac Type Severity Reaction Status Date / Time No Known Allergies Allergy Verified 04/27/18 14:57 Active Medications: Active Medications Acetaminophen (Tylenol) 650 mg PO Q4H PRN PRN Reason: Temp > 100.4 Last Admin: 04/29/18 18:40 Dose: 650 mg Acyclovir (Zovirax) 400 mg PO TID [facility] Last Admin: 04/30/18 18:02 Dose: 400 mg Al Hydrox/Mg Hydrox/Simethicone (Mag-Al Plus Susp Liq) 30 ml PO Q6H PRN PRN Reason: DYSPEPSIA Al Hydroxide/Mg Hydroxide (Milk Of Magnesia Liq) 30 ml PO DAILY PRN PRN Reason: SEVERE CONSITIPATION Aspirin (Aspirin) 325 mg PO DAILY [facility] Last Admin: 04/30/18 09:45 Dose: 325 mg Calcium Carbonate (Tums Chew) 1,000 mg CHEW TID PRN PRN Reason: DYSPEPSIA Carvedilol (Coreg) 3.125 mg PO BID [facility] Last Admin: 04/30/18 20:39 Dose: 3.125 mg Clonidine HCl (Catapres) 0.1 mg PO Q6HR PRN PRN Reason: SBP>180 DBP>100 Docusate Sodium (Colace) 100 mg PO BID PRN PRN Reason: CONSTIPATION Enalaprilat (Vasotec Inj) 1.25 mg IV.PUSH Q6H PRN PRN Reason: SEE LABEL COMMENTS Furosemide (Lasix Inj) 40 mg IV.PUSH BID@0900,1800 [facility] Last Admin: 04/30/18 18:01 Dose: 40 mg Heparin Sodium (Porcine) (Heparin Inj) 5,000 units SQ Q12H [facility] Last Admin: 05/01/18 06:19 Dose: 5,000 units Hydroxyzine Pamoate (Vistaril) 25 mg PO Q6H PRN PRN Reason: ANXIETY AND/OR INSOMNIA Last Admin: 04/29/18 20:48 Dose: 25 mg Lorazepam (Ativan) 0.5 mg PO Q6HR PRN PRN Reason: ANXIETY AND/OR AGITATION Metolazone (Zaroxolyn) 2.5 mg PO BID [facility] Last Admin: 04/30/18 20:38 Dose: 2.5 mg Nitroglycerin (Nitrostat Sl) 0.4 mg SL Q5M PRN PRN Reason: CHEST PAIN Ondansetron HCl (Zofran Inj) 4 mg IV.PUSH Q6H PRN PRN Reason: NAUSEA Potassium Chloride (Klor-Con 8) 8 meq PO BID [facility] Senna/Docusate Sodium (Latasha-Colace) 1 tab PO BID PRN PRN Reason: CONSTIPATION Sodium Chloride (Ns Flush) 2 ml IV.FLUSH BID [facility] Last Admin: 04/30/18 20:39 Dose: 2 ml Sodium Chloride (Ns Flush) 2 ml IV.FLUSH PRN PRN PRN Reason: FLUSH AFTER USING IV ACCESS Tramadol HCl (Ultram) 50 mg PO Q6H PRN PRN Reason: PAIN SCALE 1 TO 10 Physical Exam Vital signs: Vital Signs 04/30/18 08:00 04/30/18 09:00 04/30/18 10:00 Temperature 98.3 F Pulse Rate 92 H 96 H 96 H Respiratory Rate 15 13 12 Blood Pressure 81/62 L Pulse Oximetry 94 L 04/30/18 10:01 04/30/18 10:09 04/30/18 10:15 Temperature Pulse Rate 85 Respiratory Rate 20 Blood Pressure Pulse Oximetry 96 04/30/18 10:26 04/30/18 11:00 04/30/18 11:52 Temperature Pulse Rate 98 H 96 H 98 H Respiratory Rate 12 11 L 26 H Blood Pressure 85/73 L 81/61 L Pulse Oximetry 96 98 93 L 04/30/18 12:00 04/30/18 13:00 04/30/18 14:00 Temperature 98.6 F Pulse Rate 104 H 100 H 100 H Respiratory Rate 31 H 33 H 27 H Blood Pressure 85/60 L Pulse Oximetry 94 L 95 04/30/18 15:00 04/30/18 16:00 04/30/18 16:01 Temperature 98.2 F Pulse Rate 96 H 100 H 100 H Respiratory Rate 19 20 21 Blood Pressure 97/68 L 97/68 L Pulse Oximetry 76 L 85 L 93 L 04/30/18 17:00 04/30/18 17:27 04/30/18 18:00 Temperature Pulse Rate 100 H 100 H 100 H Respiratory Rate 26 H 31 H 20 Blood Pressure 102/80 91/75 L Pulse Oximetry 97 04/30/18 19:00 04/30/18 19:30 04/30/18 20:00 Temperature Pulse Rate 94 H 102 H Respiratory Rate 18 20 Blood Pressure 81/70 L 93/81 L Pulse Oximetry 97 93 L 04/30/18 21:00 04/30/18 22:00 04/30/18 23:00 Temperature Pulse Rate 94 H 104 H 96 H Respiratory Rate 13 33 H 15 Blood Pressure 93/64 L Pulse Oximetry 05/01/18 00:00 05/01/18 03:00 05/01/18 04:08 Temperature 98.4 F 98.4 F Pulse Rate 106 H 100 H 96 H Respiratory Rate 22 13 21 Blood Pressure 102/73 117/87 104/78 Pulse Oximetry Intake & Output 04/30/18 05/01/18 05/01/18 18:59 06:59 18:59 Intake Total 800 / 800 240 / 240 Output Total 500 / 500 1400 / 1400 Balance 300 / 300 -1160 / -1160 Weight 190 lb 0.615 oz Intake: Oral 800 / 800 240 / 240 Output: Urine 500 / 500 1400 / 1400 Other: Date of Last Bowel Movement 04/30/18 04/30/18 # Bowel Movements 1 1 Narrative: GENERAL: Well-developed well-nourished. In no acute distress. NECK: No carotid bruits. No JVD. CARDIOVASCULAR: Regular rate and rhythm. No murmur appreciated. RESPIRATORY: No accessory muscle use. Clear to auscultation. Breath sounds equal bilaterally. MUSCULOSKELETAL: No clubbing or cyanosis. Anasarca with 3+ bilateral lower extremity pitting edema. NEUROLOGICAL: Awake and alert. Normal speech. Results 04/27/18 16:12 05/01/18 04:55 Comprehensive Metabolic Panel 04/30/18 05/01/18 Range/Units 05:20 04:55 Sodium 134 L 135 L (136-145) meq/L Potassium 4.2 3.0 L D (3.5-5.1) meq/L Chloride 99 97 L (98-107) meq/L Carbon Dioxide 25.8 27.8 (21.0-32.0) meq/L BUN 39 H 37 H (7-18) mg/dL Creatinine 1.30 1.10 (0.60-1.30) mg/dL Calcium 8.1 L 8.1 L (8.5-10.1) mg/dL Intake and Output 04/30/18 05/01/18 05/01/18 22:59 06:59 14:59 Intake Total 800 / 800 240 / 240 Output Total 500 / 500 1400 / 1400 Balance 300 / 300 -1160 / -1160 Intake: Oral 800 / 800 240 / 240 Output: Urine 500 / 500 1400 / 1400 Other: Date of Last Bowel Movement 04/30/18 04/30/18 # Bowel Movements 1 1 Weight 190 lb 0.615 oz - Imaging and Cardiology Imaging: Impressions Myocardial Perfusion Scan Nuc Med 04/29/18 00:00 CONCLUSION: 1. Global hypokinesis with EF of 14% and dilated left ventricle. 2. No definite reversible perfusion defects are identified to suggest stress- induced myocardial ischemia at this time. Assessment and Plan - Plan 68-year-old male with a past medical history of hypertension who presented for lower extremity swelling Acute systolic CHF: Diuresing better. Creatinine ok, increase IV Lasix 40 mg to TID. Continue metolazone 2.5 mg BID with supplemental potassium BID. Strict I' s and O's. Monitor renal function and electrolytes. Cardiomyopathy: Severe. Unclear onset. Nonischemic based on Lexiscan. Low- dose carvedilol started. BP did not tolerate addition of lisinopril. Recommend LifeVest at discharge, patient agreeable. Will need 4 months of guideline directed medical therapy and then repeat echocardiogram for consideration of AICD. NSVT: Beta-boni added, titrate dose as BP allows. Discussed Condition With: Patient, RN, Dr. Gallegos - Attending Attestation agree with above.
[2018-05-01] MEDS: Acyclovir 200 MG Capsule PO SCH ×3 (08:40→22:53)
[2018-05-01] MEDS: Aspirin 325 MG Tablet PO SCH (08:40)
[2018-05-01] MEDS ORDERED: Magnesium Oxide 400 MG Tablet PO PRN (09:53)
[2018-05-01] MEDS ORDERED: Magnesium Sulfate Inj 4 GM in Sodium Chlor 0.9% Inj 92 ML IV.SIG PRN (09:53)
[2018-05-01] MEDS ORDERED: Magnesium Sulfate Inj 2 GM in Sodium Chlor 0.9% Inj 96 ML IV.SIG PRN (09:53)
[2018-05-01] MEDS ORDERED: Sodium Phosphate Inj 30 MMOL in Sodium Chlor 0.9% Inj 250 ML IV.SIG PRN (09:53)
[2018-05-01] MEDS ORDERED: Potassium Chlor 40 mEq Premix 40 MEQ/100 ML PIGGYBACK IV.SIG PRN ×2 (09:53)
[2018-05-01] MEDS ORDERED: Potassium Chlor 20 mEq Premix 20 MEQ/100 ML PIGGYBACK IV.SIG PRN ×2 (09:53)
[2018-05-01] MEDS ORDERED: Potassium Phosphate Inj 30 MMOL in Sodium Chlor 0.9% Inj 250 ML IV.SIG PRN (09:53)
[2018-05-01] MEDS ORDERED: Potassium Phosphate 500 MG Soluble Tablet PO PRN ×2 (09:53)
[2018-05-01] MEDS ORDERED: Potassium Chloride 25 MEQ Effervescent Tablet PO PRN (09:53)
--- NOTE | 2018-05-01 10:54 | P.PN ---
Subjective Interval history: Follow-up heart failure and sciatica. Improving shortness of breath. Tramadol helps. He is diuresing with negative fluid balance. Lasix increased to 3 times a day. BP has been stable since stopping lisinopril. Physical Exam Vital signs: Vital Signs 04/30/18 11:00 04/30/18 11:52 04/30/18 12:00 Temperature 98.6 F Pulse Rate 96 H 98 H 104 H Respiratory Rate 11 L 26 H 31 H Blood Pressure 81/61 L 85/60 L Pulse Oximetry 98 93 L 94 L 04/30/18 13:00 04/30/18 14:00 04/30/18 15:00 Temperature Pulse Rate 100 H 100 H 96 H Respiratory Rate 33 H 27 H 19 Blood Pressure Pulse Oximetry 95 76 L 04/30/18 16:00 04/30/18 16:01 04/30/18 17:00 Temperature 98.2 F Pulse Rate 100 H 100 H 100 H Respiratory Rate 20 21 26 H Blood Pressure 97/68 L 97/68 L Pulse Oximetry 85 L 93 L 04/30/18 17:27 04/30/18 18:00 04/30/18 19:00 Temperature Pulse Rate 100 H 100 H 94 H Respiratory Rate 31 H 20 18 Blood Pressure 102/80 91/75 L 81/70 L Pulse Oximetry 97 97 04/30/18 19:30 04/30/18 20:00 04/30/18 21:00 Temperature Pulse Rate 102 H 94 H Respiratory Rate 20 13 Blood Pressure 93/81 L Pulse Oximetry 93 L 04/30/18 22:00 04/30/18 23:00 05/01/18 00:00 Temperature 98.4 F Pulse Rate 104 H 96 H 106 H Respiratory Rate 33 H 15 22 Blood Pressure 93/64 L 102/73 Pulse Oximetry 05/01/18 03:00 05/01/18 04:08 05/01/18 07:08 Temperature 98.4 F Pulse Rate 100 H 96 H 98 H Respiratory Rate 13 21 12 Blood Pressure 117/87 104/78 Pulse Oximetry 05/01/18 08:00 05/01/18 09:44 Temperature Pulse Rate 102 H Respiratory Rate 25 H Blood Pressure Pulse Oximetry 97 Intake & Output 04/30/18 05/01/18 05/01/18 18:59 06:59 18:59 Intake Total 800 / 800 240 / 240 Output Total 500 / 500 1400 / 1400 Balance 300 / 300 -1160 / -1160 Weight 86.2 kg Intake: Oral 800 / 800 240 / 240 Output: Urine 500 / 500 1400 / 1400 Other: Date of Last Bowel Movement 04/30/18 04/30/18 04/30/18 # Bowel Movements 1 1 Narrative: GENERAL: Well-developed well-nourished. In no acute distress. NECK: No carotid bruits. No JVD. CARDIOVASCULAR: Regular rate and rhythm. No murmur appreciated. RESPIRATORY: No accessory muscle use. Clear to auscultation. Breath sounds equal bilaterally. MUSCULOSKELETAL: No clubbing or cyanosis. Anasarca with 3+ bilateral lower extremity pitting edema. NEUROLOGICAL: Awake and alert. Normal speech. Results - Labs CBC & Chem 7: 04/27/18 16:12 05/01/18 04:55 Laboratory Results - last 24 hr 05/01/18 05/01/18 04:55 04:55 Sodium 135 L Potassium 3.0 L D Chloride 97 L Carbon Dioxide 27.8 Anion Gap 10 BUN 37 H Creatinine 1.10 Estimated GFR 66 L Random Glucose 101 Calcium 8.1 L Phosphorus 3.3 Magnesium 1.7 - Procedures none Assessment and Plan - Plan This is a 68-year-old male with a history of hypertension, herpes and bilateral lower extremity edema. He presents to the emergency department because of worsening bilateral lower extremity edema including scrotal and dyspnea. On exam he has anasarca. BNP 2500. Also has a troponin of 0.[address] elevation. Acute systolic CHF exacerbation with anasarca. Still with significant edema. Continue IV diuresis with Lasix dose increased to 40 mg 3 times a day, CHF education, I/0 with 1.5 L fluid restriction and monitor weight. Monitor BP closely. Discontinued lisinopril secondary to hypotension. Continue Coreg with history of NSVT. Will need LifeVest consult case management. Patient counselled Elevated troponin. Denies chest pain. Lexiscan without ischemia. Aspirin and BB Consulted cardiology. Hyponatremia likely secondary to CHF. He is asymptomatic. Will monitor Hypokalemia. Will aggressively replace patient on diuresis with history of NSVT. Wound care. DVT prophylaxis with SCD and subcu heparin Discharge Planning: [facility] PT/VN vs rehab with [facility]
[2018-05-02 05:16] LABS: Calcium 8.4 mg/dL (8.5-10.1)
[2018-05-02 05:17] LABS: Carbon Dioxide 32.9 meq/L (21.0-32.0); Magnesium 1.8 mg/dL (1.5-2.5)
[2018-05-02] MEDS: Heparin - SQ 10,000 UNITS/ML Vial SQ SCH ×2 (06:28→18:40)
--- NOTE | 2018-05-02 08:00 | P.PNCA ---
Subjective Interval history: patient seen and examined. I/O shows -3400cc overnight with weight down as well. Patient claims only 250cc x 4-5 output but may not be reliable. still with some dyspnea but not too bad Medications and Allergies Active Medications: Active Medications Acetaminophen (Tylenol) 650 mg PO Q4H PRN PRN Reason: Temp > 100.4 Last Admin: 04/29/18 18:40 Dose: 650 mg Acyclovir (Zovirax) 400 mg PO TID [facility] Last Admin: 05/01/18 22:53 Dose: 400 mg Al Hydrox/Mg Hydrox/Simethicone (Mag-Al Plus Susp Liq) 30 ml PO Q6H PRN PRN Reason: DYSPEPSIA Al Hydroxide/Mg Hydroxide (Milk Of Magnesia Liq) 30 ml PO DAILY PRN PRN Reason: SEVERE CONSITIPATION Calcium Carbonate (Tums Chew) 1,000 mg CHEW TID PRN PRN Reason: DYSPEPSIA Carvedilol (Coreg) 3.125 mg PO BID [facility] Last Admin: 05/01/18 21:42 Dose: Not Given Docusate Sodium (Colace) 100 mg PO BID PRN PRN Reason: CONSTIPATION Furosemide (Lasix Inj) 80 mg IV.PUSH TID [facility] Heparin Sodium (Porcine) (Heparin Inj) 5,000 units SQ Q12H [facility] Last Admin: 05/02/18 06:28 Dose: 5,000 units Hydroxyzine Pamoate (Vistaril) 25 mg PO Q6H PRN PRN Reason: ANXIETY AND/OR INSOMNIA Last Admin: 04/29/18 20:48 Dose: 25 mg Magnesium Sulfate 4 gm/ Sodium (Chloride) 100 mls @ 50 mls/hr IV.SIG UNSCH PRN PRN Reason: For Magnesium 0.9 - 1.1 mg/dL Magnesium Sulfate 2 gm/ Sodium (Chloride) 100 mls @ 50 mls/hr IV.SIG UNSCH PRN PRN Reason: For Magnesium 1.2 - 1.6 mg/dL Potassium Chloride (Kcl 40 Meq Premix Inj) 40 meq in 100 mls @ 25 mls/hr IV.SIG Q2H PRN PRN Reason: For Potassium 2.8 - 3.2 mEq/L Potassium Chloride (Kcl 20 Meq Premix Inj) 20 meq in 100 mls @ 50 mls/hr IV.SIG Q2H PRN PRN Reason: For Potassium 3.3 - 3.5 mEq/L Potassium Chloride (Kcl 40 Meq Premix Inj) 40 meq in 100 mls @ 25 mls/hr IV.SIG UNSCH PRN PRN Reason: For Potassium 3.3 - 3.5 mEq/L Potassium Chloride (Kcl 20 Meq Premix Inj) 20 meq in 100 mls @ 50 mls/hr IV.SIG Q2H PRN PRN Reason: For Potassium 2.8 - 3.2 mEq/L Potassium Phosphate 30 mmol/ (Sodium Chloride) 260 mls @ 42 mls/hr IV.SIG UNSCH PRN PRN Reason: SEE LABEL COMMENTS Sodium Phosphate 30 mmol/ (Sodium Chloride) 260 mls @ 42 mls/hr IV.SIG UNSCH PRN PRN Reason: For Phosphorus < 2.5 mg/dL Lorazepam (Ativan) 0.5 mg PO Q6HR PRN PRN Reason: ANXIETY AND/OR AGITATION Magnesium Oxide (Mag-Ox) 800 mg PO UNSCH PRN PRN Reason: For Magnesium 1.2 - 1.6 mg/dL Metolazone (Zaroxolyn) 5 mg PO DAILY [facility] Nitroglycerin (Nitrostat Sl) 0.4 mg SL Q5M PRN PRN Reason: CHEST PAIN Ondansetron HCl (Zofran Inj) 4 mg IV.PUSH Q6H PRN PRN Reason: NAUSEA Potassium Bicarb/Potassium Chloride (K-Lyte Cl Eff) 50 meq PO UNSCH PRN PRN Reason: For Potassium 3.3 - 3.5 mEq/L Potassium Chloride (K-Dur) 40 meq PO BID@0800,1999 [facility] Last Admin: 05/01/18 20:43 Dose: 40 meq Potassium Phosphate (K-Phos Original) 2,000 mg PO UNSCH PRN PRN Reason: SEE LABEL COMMENTS Potassium Phosphate (K-Phos Original) 2,000 mg PO Q4H PRN PRN Reason: Phosphorus Less Than 2.5 mg/dL Senna/Docusate Sodium (Latasha-Colace) 1 tab PO BID PRN PRN Reason: CONSTIPATION Sodium Chloride (Ns Flush) 2 ml IV.FLUSH BID [facility] Last Admin: 05/02/18 06:31 Dose: 2 ml Sodium Chloride (Ns Flush) 2 ml IV.FLUSH PRN PRN PRN Reason: FLUSH AFTER USING IV ACCESS Tramadol HCl (Ultram) 50 mg PO Q6H PRN PRN Reason: PAIN SCALE 1 TO 10 Allergies Allergy/AdvReac Type Severity Reaction Status Date / Time No Known Allergies Allergy Verified 04/27/18 14:57 Physical Exam Vital signs: Vital Signs 05/01/18 08:00 05/01/18 08:52 05/01/18 09:00 Temperature 98.3 F Pulse Rate 102 H 104 H 102 H Respiratory Rate 25 H 23 23 Blood Pressure 95/66 L Pulse Oximetry 05/01/18 09:44 05/01/18 10:00 05/01/18 11:00 Temperature Pulse Rate 98 H 96 H Respiratory Rate 17 24 Blood Pressure Pulse Oximetry 97 05/01/18 12:00 05/01/18 12:29 05/01/18 13:00 Temperature Pulse Rate 96 H 98 H 102 H Respiratory Rate 19 19 25 H Blood Pressure 86/57 L Pulse Oximetry 05/01/18 14:00 05/01/18 14:36 05/01/18 14:40 Temperature Pulse Rate 94 H 98 H 102 H Respiratory Rate 19 27 H 30 H Blood Pressure 81/69 L Pulse Oximetry 05/01/18 14:42 05/01/18 15:00 05/01/18 16:00 Temperature Pulse Rate 94 H 92 H Respiratory Rate 11 L 21 Blood Pressure 90/68 L Pulse Oximetry 05/01/18 18:00 05/01/18 19:45 05/01/18 20:00 Temperature 98.1 F Pulse Rate 98 H 100 H Respiratory Rate 16 22 Blood Pressure 84/68 L Pulse Oximetry 97 97 05/01/18 21:00 05/01/18 21:26 05/02/18 00:00 Temperature 98.2 F Pulse Rate 98 H 98 H 100 H Respiratory Rate 24 20 21 Blood Pressure 81/72 L 90/60 L 81/68 L Pulse Oximetry 05/02/18 02:14 05/02/18 04:00 Temperature 98 F Pulse Rate 100 H 100 H Respiratory Rate 26 H 17 Blood Pressure 91/67 L 109/72 Pulse Oximetry Intake & Output 05/01/18 05/02/18 05/02/18 18:59 06:59 18:59 Intake Total 240 / 240 200 / 200 Output Total 2250 / 2250 1900 / 1900 Balance -2010 / -2010 -1700 / -1700 Weight 84.2 kg Intake: Oral 240 / 240 200 / 200 Output: Urine 2250 / 2250 1900 / 1900 Other: Date of Last Bowel Movement 04/30/18 04/30/18 Narrative: GENERAL: Well-developed well-nourished. In no acute distress. NECK: No carotid bruits. JVP to 20cm. CARDIOVASCULAR: Regular rate and rhythm. No murmur appreciated. RESPIRATORY: No accessory muscle use. Clear to auscultation. Breath sounds equal bilaterally. MUSCULOSKELETAL: No clubbing or cyanosis. Anasarca with 3+ bilateral lower extremity pitting edema to abdomen. NEUROLOGICAL: Awake and alert. Normal speech. Results 04/27/18 16:12 05/02/18 04:52 Comprehensive Metabolic Panel 05/01/18 05/02/18 Range/Units 04:55 04:52 Sodium 135 L 134 L (136-145) meq/L Potassium 3.0 L D 3.0 L (3.5-5.1) meq/L Chloride 97 L 95 L (98-107) meq/L Carbon Dioxide 27.8 32.9 H (21.0-32.0) meq/L BUN 37 H 39 H (7-18) mg/dL Creatinine 1.10 1.10 (0.60-1.30) mg/dL Calcium 8.1 L 8.4 L (8.5-10.1) mg/dL Intake and Output 05/01/18 05/02/18 05/02/18 22:59 06:59 14:59 Intake Total 120 / 120 200 / 200 Output Total 760 / 760 1900 / 1900 Balance -640 / -640 -1700 / -1700 Intake: Oral 120 / 120 200 / 200 Output: Urine 760 / 760 1900 / 1900 Other: Date of Last Bowel Movement 04/30/18 Weight 84.2 kg Assessment and Plan - Plan 68-year-old male with a past medical history of hypertension who presented for lower extremity swelling Acute systolic CHF: Diuresing better. Creatinine ok, change lasix to 80 mg to bid and metolazone to 5mg qam with supplemental potassium BID. Strict I's and O 's. Monitor renal function and electrolytes. Cardiomyopathy: Severe. Unclear onset. Nonischemic based on Lexiscan. Low- dose carvedilol started. BP did not tolerate addition of lisinopril. Recommend LifeVest at discharge, patient agreeable. Will need 4 months of guideline directed medical therapy and then repeat echocardiogram for consideration of AICD. NSVT/ frequent ventricular ectopy: Beta-boni added, titrate dose as BP allows.
[2018-05-02] MEDS ORDERED: Petrolatum Oint 30 GM Tube TOPICAL PRN (09:46)
--- NOTE | 2018-05-02 09:51 | P.PN ---
Subjective Interval history: Follow-up heart failure. Patient states he is improving but still with significant edema discussed with cardiology increase Lasix to 80 mg IV every 12. Physical Exam Vital signs: Vital Signs 05/01/18 10:00 05/01/18 11:00 05/01/18 12:00 Temperature Pulse Rate 98 H 96 H 96 H Respiratory Rate 17 24 19 Blood Pressure Pulse Oximetry 05/01/18 12:29 05/01/18 13:00 05/01/18 14:00 Temperature Pulse Rate 98 H 102 H 94 H Respiratory Rate 19 25 H 19 Blood Pressure 86/57 L Pulse Oximetry 05/01/18 14:36 05/01/18 14:40 05/01/18 14:42 Temperature Pulse Rate 98 H 102 H Respiratory Rate 27 H 30 H Blood Pressure 81/69 L 90/68 L Pulse Oximetry 05/01/18 15:00 05/01/18 16:00 05/01/18 18:00 Temperature Pulse Rate 94 H 92 H 98 H Respiratory Rate 11 L 21 16 Blood Pressure Pulse Oximetry 05/01/18 19:45 05/01/18 20:00 05/01/18 21:00 Temperature 98.1 F Pulse Rate 100 H 98 H Respiratory Rate 22 24 Blood Pressure 84/68 L 81/72 L Pulse Oximetry 97 97 05/01/18 21:26 05/02/18 00:00 05/02/18 02:14 Temperature 98.2 F Pulse Rate 98 H 100 H 100 H Respiratory Rate 20 21 26 H Blood Pressure 90/60 L 81/68 L 91/67 L Pulse Oximetry 05/02/18 04:00 05/02/18 08:00 Temperature 98 F Pulse Rate 100 H Respiratory Rate 17 Blood Pressure 109/72 Pulse Oximetry 96 Intake & Output 05/01/18 05/02/18 05/02/18 18:59 06:59 18:59 Intake Total 240 / 240 200 / 200 Output Total 2250 / 2250 1900 / 1900 Balance -2009 / -2009 -1699 / -170 Weight 84.2 kg Intake: Oral 240 / 240 200 / 200 Output: Urine 2250 / 2250 1900 / 1900 Other: Date of Last Bowel Movement 04/30/18 04/30/18 Narrative: GENERAL: Well-developed well-nourished. In no acute distress. NECK: No carotid bruits. JVP to 20cm. CARDIOVASCULAR: Regular rate and rhythm. No murmur appreciated. RESPIRATORY: No accessory muscle use. Clear to auscultation. Breath sounds equal bilaterally. MUSCULOSKELETAL: No clubbing or cyanosis. Anasarca with 3+ bilateral lower extremity pitting edema to abdomen. NEUROLOGICAL: Awake and alert. Normal speech. Nonfocal Results - Labs CBC & Chem 7: 04/27/18 16:12 05/02/18 04:52 Laboratory Results - last 24 hr 05/01/18 05/02/18 04:55 04:52 Sodium 134 L Potassium 3.0 L Chloride 95 L Carbon Dioxide 32.9 H Anion Gap 6 BUN 39 H Creatinine 1.10 Estimated GFR 66 L Random Glucose 112 H Calcium 8.4 L Phosphorus 3.3 Magnesium 1.8 - Imaging ITS Impressions Chest X-Ray 04/28/18 00:00 CONCLUSION: 1. Bibasilar patchy densities consistent with atelectasis and/or infiltrates. Clinical correlation is recommended. 2. Cardiomegaly. Myocardial Perfusion Scan Nuc Med 04/29/18 00:00 CONCLUSION: 1. Global hypokinesis with EF of 14% and dilated left ventricle. 2. No definite reversible perfusion defects are identified to suggest stress- induced myocardial ischemia at this time. - Procedures none Assessment and Plan - Plan This is a 68-year-old male with a history of hypertension, herpes and bilateral lower extremity edema. He presents to the emergency department because of worsening bilateral lower extremity edema including scrotal and dyspnea. On exam he has anasarca. BNP 2500. Also has a troponin of 0.[address] elevation. Acute systolic CHF exacerbation with anasarca. Still with significant edema. Continue IV diuresis with Lasix dose increased to 80 mg times a day, Zaroxolyn also increased to 5 mg twice a day, CHF education, I/0 with 1.5 L fluid restriction and monitor weight. Monitor BP closely. Discontinued lisinopril secondary to hypotension. Continue Coreg with history of NSVT. Will need LifeVest consult case management. Patient counselled Elevated troponin. Denies chest pain. Lexiscan without ischemia. Aspirin and BB Consulted cardiology. Hyponatremia likely secondary to CHF. He is asymptomatic. Will monitor Hypokalemia. Will aggressively replace patient on diuresis with history of NSVT. Wound care. DVT prophylaxis with SCD and subcu heparin Discharge Planning: Keep patient in the intermediate care unit C PT/VN vs rehab with [facility]
[2018-05-02] MEDS: Acyclovir 200 MG Capsule PO SCH ×3 (10:30→18:40)
[2018-05-03 05:24] LABS: Calcium 8.3 mg/dL (8.5-10.1); Magnesium 1.7 mg/dL (1.5-2.5)
[2018-05-03 05:31] LABS: Potassium 2.8 meq/L (3.5-5.1)
[2018-05-03] MEDS: Heparin - SQ 10,000 UNITS/ML Vial SQ SCH ×2 (07:01→18:29)
[2018-05-03] MEDS ORDERED: Potassium Chlor 20 mEq Premix 20 MEQ/100 ML PIGGYBACK IV.SIG ONE ×2 (08:01→12:45)
[2018-05-03] MEDS: Acyclovir 200 MG Capsule PO SCH ×3 (10:17→18:30)
[2018-05-03] MEDS ORDERED: Naproxen 250 MG Tablet PO ONE (12:17)
--- NOTE | 2018-05-03 12:21 | P.PNIM ---
Subjective Interval history: Patient is improving today. Decreased swelling is noted per patient. Decreased shortness of breath. Diuretics appear to be working well. Complaint today of left sciatica exacerbation. Physical Exam Vital signs: Vital Signs 05/02/18 13:53 05/02/18 17:32 05/02/18 19:40 Temperature 98.1 F 98.8 F Pulse Rate 96 H 104 H Respiratory Rate 22 22 Blood Pressure 109/71 106/73 Pulse Oximetry 95 96 05/02/18 20:00 05/03/18 00:00 05/03/18 04:00 Temperature 98.8 F 98.3 F 98.2 F Pulse Rate 98 H 98 H 96 H Respiratory Rate 20 22 22 Blood Pressure 127/81 96/70 L 116/81 Pulse Oximetry 94 L 96 94 L 05/03/18 08:00 05/03/18 08:05 Temperature 98.2 F Pulse Rate 97 H Respiratory Rate 18 Blood Pressure 121/74 Pulse Oximetry 97 96 Intake & Output 05/02/18 05/03/18 05/03/18 18:59 06:59 18:59 Intake Total 680 / 680 Output Total 1780 / 1780 1999 250 / 250 Balance -1100 / -1100 -2000 / -2000 -250 / -250 Weight 80.3 kg Intake: Oral 680 / 680 Output: Urine 1780 / 1780 1999 250 / 250 Other: # Voids 2 Date of Last Bowel Movement 05/02/18 05/02/18 # Bowel Movements 1 Narrative: GENERAL: NAD, A&Ox3 HEAD: Normocephalic. NECK: Supple, trachea midline. No lymphadenopathy. EYES: No scleral icterus. No injection or drainage. CARDIOVASCULAR: Regular rate and rhythm without murmurs, gallops, or rubs. RESPIRATORY: Breath sounds equal bilaterally. No accessory muscle use. Crackles at bases of lungs bilaterally. GASTROINTESTINAL: Abdomen soft, non-tender, nondistended. MUSCULOSKELETAL: No cyanosis, bilateral lower extremity edema up to the knees. SKIN: Warm and dry. Scrotal edema. NEURO: No focal neurological deficits. Results - Labs CBC & Chem 7: 04/27/18 16:12 05/03/18 04:55 Laboratory Results - last 24 hr 05/03/18 04:55 Sodium 139 Potassium 2.8 L* Chloride 95 L Carbon Dioxide 37.0 H Anion Gap 7 BUN 32 H Creatinine 1.00 Estimated GFR 74 L Random Glucose 107 H Calcium 8.3 L Magnesium 1.7 - Procedures none Assessment and Plan - Plan 68-year-old male admitted secondary to CHF exacerbation and severe CHF and anasarca. Acute systolic CHF exacerbation Anasarca Continue diuresis Follow renal function Continue to monitor clinically for further improvement LifeVest planned Elevated troponin Likely related to CHF No evidence of acute [place] Cardiology following Continue aspirin Continue beta-boni Hyponatremia Related to CHF Continue to monitor Hypokalemia Continue supplementation replacement as needed Continue diuresis despite DVT prophylaxis Subcutaneous heparin Discharge Planning: Transition out of intermediate care and anticipate discharge in 2-3 days if improvement continues
[2018-05-03] MEDS: Naproxen 250 MG Tablet PO SCH (21:30)
[2018-05-04] MEDS: Heparin - SQ 10,000 UNITS/ML Vial SQ SCH ×2 (05:15→17:22)
[2018-05-04 05:54] LABS: Baso % (Auto) 0.3 % (0.0-2.0); Eos % (Auto) 0.5 % (0.0-4.0); Hematocrit 46.2 % (39.0-51.0); Hemoglobin 15.5 gm/dL (13.0-17.0); Lymph # (Auto) 0.6 th/mm3 (1.0-4.8); Lymph % (Auto) 9.2 % (9.0-44.0); Mean Corpuscular HGB Conc 33.5 % (32.0-36.0); Mean Corpuscular Hemoglobin 33.6 pg (27.0-34.0); Mean Corpuscular Volume 100.3 fL (80.0-100.0); Mean Platelet Volume 8.3 fL (7.0-11.0); Mono # (Auto) 0.9 th/mm3 (0.0-0.9); Mono % (Auto) 12.1 % (0.0-8.0); Neut # (Auto) 5.6 th/mm3 (1.8-7.7); Neut % (Auto) 77.9 % (16.0-70.0); Platelet Count 123 th/mm3 (150-450); Red Blood Count 4.61 mil/mm3 (4.50-5.90); Red Cell Distribution Width 14.2 % (11.6-17.2); White Blood Count 7.1 th/mm3 (4.0-11.0)
[2018-05-04 06:43] LABS: Alanine Aminotransferase 73 U/L (12-78); Albumin 2.4 g/dL (3.4-5.0); Alkaline Phosphatase 114 U/L (45-117); Anion Gap 6 meq/L (5-15); Aspartate Aminotransferase 119 U/L (15-37); Blood Urea Nitrogen 38 mg/dL (7-18); Calcium 8.4 mg/dL (8.5-10.1); Carbon Dioxide 35.2 meq/L (21.0-32.0); Chloride 97 meq/L (98-107); Glomerular Filtration Rate 77 mL/min (>89); Glucose,Random 109 mg/dL (74-106); Magnesium 1.8 mg/dL (1.5-2.5); Potassium 3.9 meq/L (3.5-5.1); Sodium 138 meq/L (136-145); Total Protein 5.8 g/dL (6.4-8.2)
--- NOTE | 2018-05-04 07:56 | P.PNCA ---
Subjective Interval history: Patient seen and examined. His weight is decreasing nicely on currently lasix 80mg iv bid and metolazone 5mg daily. No chest pain, dyspnea is improving. LE edema still present but improving. Medications and Allergies Active Medications: Active Medications Acetaminophen (Tylenol) 650 mg PO Q4H PRN PRN Reason: Temp > 100.4 Last Admin: 04/29/18 18:40 Dose: 650 mg Acyclovir (Zovirax) 400 mg PO TID [facility] Last Admin: 05/03/18 18:30 Dose: 400 mg Al Hydrox/Mg Hydrox/Simethicone (Mag-Al Plus Susp Liq) 30 ml PO Q6H PRN PRN Reason: DYSPEPSIA Al Hydroxide/Mg Hydroxide (Milk Of Magnesia Liq) 30 ml PO DAILY PRN PRN Reason: SEVERE CONSITIPATION Calcium Carbonate (Tums Chew) 1,000 mg CHEW TID PRN PRN Reason: DYSPEPSIA Carvedilol (Coreg) 3.125 mg PO BID [facility] Last Admin: 05/03/18 21:30 Dose: 3.125 mg Docusate Sodium (Colace) 100 mg PO BID PRN PRN Reason: CONSTIPATION Furosemide (Lasix Inj) 80 mg IV.PUSH BID [facility] Last Admin: 05/03/18 21:30 Dose: 80 mg Heparin Sodium (Porcine) (Heparin Inj) 5,000 units SQ Q12H [facility] Last Admin: 05/04/18 05:15 Dose: 5,000 units Hydrophilic Ointment (Vaseline Oint) 1 applicatio TOPICAL PRN PRN PRN Reason: DRY SKIN Hydroxyzine Pamoate (Vistaril) 25 mg PO Q6H PRN PRN Reason: ANXIETY AND/OR INSOMNIA Last Admin: 04/29/18 20:48 Dose: 25 mg Magnesium Sulfate 4 gm/ Sodium (Chloride) 100 mls @ 50 mls/hr IV.SIG UNSCH PRN PRN Reason: For Magnesium 0.9 - 1.1 mg/dL Magnesium Sulfate 2 gm/ Sodium (Chloride) 100 mls @ 50 mls/hr IV.SIG UNSCH PRN PRN Reason: For Magnesium 1.2 - 1.6 mg/dL Sodium Phosphate 30 mmol/ (Sodium Chloride) 260 mls @ 42 mls/hr IV.SIG UNSCH PRN PRN Reason: For Phosphorus < 2.5 mg/dL Lorazepam (Ativan) 0.5 mg PO Q6HR PRN PRN Reason: ANXIETY AND/OR AGITATION Magnesium Oxide (Mag-Ox) 800 mg PO UNSCH PRN PRN Reason: For Magnesium 1.2 - 1.6 mg/dL Metolazone (Zaroxolyn) 5 mg PO DAILY [facility] Naproxen (Naprosyn) 250 mg PO BID [facility] Last Admin: 05/03/18 21:30 Dose: 250 mg Nitroglycerin (Nitrostat Sl) 0.4 mg SL Q5M PRN PRN Reason: CHEST PAIN Ondansetron HCl (Zofran Inj) 4 mg IV.PUSH Q6H PRN PRN Reason: NAUSEA Potassium Chloride (Klor-Con 10) 50 meq PO TID [facility] Last Admin: 05/03/18 18:29 Dose: 50 meq Senna/Docusate Sodium (Latasha-Colace) 1 tab PO BID PRN PRN Reason: CONSTIPATION Sodium Chloride (Ns Flush) 2 ml IV.FLUSH BID [facility] Last Admin: 05/03/18 21:31 Dose: 2 ml Sodium Chloride (Ns Flush) 2 ml IV.FLUSH PRN PRN PRN Reason: FLUSH AFTER USING IV ACCESS Tramadol HCl (Ultram) 50 mg PO Q6H PRN PRN Reason: PAIN SCALE 1 TO 10 Allergies Allergy/AdvReac Type Severity Reaction Status Date / Time No Known Allergies Allergy Verified 04/27/18 14:57 Physical Exam Vital signs: Vital Signs 05/03/18 08:00 05/03/18 08:05 05/03/18 11:00 Temperature 98.2 F Pulse Rate 100 H 96 H Respiratory Rate 12 14 Blood Pressure 121/74 115/75 Pulse Oximetry 97 96 05/03/18 12:00 05/03/18 16:00 05/03/18 19:00 Temperature 98.5 F 97.3 F L 97.6 F Pulse Rate 96 H 98 H 94 H Respiratory Rate 21 18 17 Blood Pressure 116/50 L 105/85 99/85 L Pulse Oximetry 97 97 05/03/18 19:40 05/03/18 20:00 05/04/18 00:00 Temperature 96.0 F L Pulse Rate 102 H 92 H Respiratory Rate 21 22 Blood Pressure 82/70 L Pulse Oximetry 97 98 96 05/04/18 01:00 05/04/18 04:00 Temperature Pulse Rate 84 92 H Respiratory Rate 11 L 16 Blood Pressure 98/87 L Pulse Oximetry Intake & Output 05/03/18 05/04/18 05/04/18 18:59 06:59 18:59 Intake Total 820 / 820 700 / 700 Output Total 2370 / 2370 875 / 875 Balance -1550 / -1550 -175 / -175 Weight 77.4 kg Intake: IV 100 / 100 KCl 20 mEq Premix Inj 20 meq In 100 / 100 100 ml @ 50 mls/hr IV.SIG ONCE ONE Rx#:[id number] Oral 720 / 720 700 / 700 Output: Urine 2370 / 2370 875 / 875 Other: # Voids 2 Date of Last Bowel Movement 05/02/18 # Bowel Movements 3 Narrative: GENERAL: NAD, A&Ox3 HEAD: Normocephalic. NECK: Supple, trachea midline. JVP approximately 10cm EYES: No scleral icterus. No injection or drainage. CARDIOVASCULAR: Regular rate and rhythm without murmurs, gallops, or rubs. RESPIRATORY: Breath sounds equal bilaterally. No accessory muscle use. Crackles at bases of lungs bilaterally. GASTROINTESTINAL: Abdomen soft, non-tender, nondistended. MUSCULOSKELETAL: No cyanosis, bilateral lower extremity edema up to the knees. SKIN: Warm and dry. Scrotal edema. NEURO: No focal neurological deficits. Results 05/04/18 04:33 05/04/18 04:33 Cardiac Enzymes 05/04/18 Range/Units 04:33 AST 119 H (15-37) U/L CBC 05/04/18 Range/Units 04:33 WBC 7.1 (4.0-11.0) th/mm3 RBC 4.61 (4.50-5.90) mil/mm3 Hgb 15.5 (13.0-17.0) gm/dL Hct 46.2 (39.0-51.0) % Plt Count 123 L (150-450) th/mm3 Neut # (Auto) 5.6 (1.8-7.7) th/mm3 Lymph # (Auto) 0.6 L (1.0-4.8) th/mm3 [place] # (Auto) 0.9 (0.0-0.9) th/mm3 Eos # (Auto) 0.0 (0.0-0.4) th/mm3 Baso # (Auto) 0.0 (0.0-0.2) th/mm3 Comprehensive Metabolic Panel 05/03/18 05/03/18 05/04/18 Range/Units 04:55 12:10 04:33 Sodium 139 138 (136-145) meq/L Potassium 2.8 L* 2.9 L* 3.9 D (3.5-5.1) meq/L Chloride 95 L 97 L (98-107) meq/L Carbon Dioxide 37.0 H 35.2 H (21.0-32.0) meq/L BUN 32 H 38 H (7-18) mg/dL Creatinine 1.00 0.97 (0.60-1.30) mg/dL Calcium 8.3 L 8.4 L (8.5-10.1) mg/dL AST 119 H (15-37) U/L ALT 73 (12-78) U/L Alkaline Phosphatase 114 (45-117) U/L Total Protein 5.8 L (6.4-8.2) g/dL Albumin 2.4 L (3.4-5.0) g/dL Intake and Output 05/03/18 05/04/18 05/04/18 22:59 06:59 14:59 Intake Total 820 / 820 700 / 700 Output Total 1540 / 1540 875 / 875 Balance -720 / -720 -175 / -175 Intake: IV 100 / 100 KCl 20 mEq Premix Inj 20 meq In 100 / 100 100 ml @ 50 mls/hr IV.SIG ONCE ONE Rx#:[id number] Oral 720 / 720 700 / 700 Output: Urine 1540 / 1540 875 / 875 Other: # Voids 2 Date of Last Bowel Movement 05/02/18 05/02/18 # Bowel Movements 3 Weight 77.4 kg Assessment and Plan - Plan 68-year-old male with a past medical history of hypertension who presented for lower extremity swelling Acute systolic CHF: Diuresing better. Creatinine ok, continue furosemide 80 mg bid and metolazone 5mg qam with supplemental potassium BID. Strict I's and O' s. Monitor renal function and electrolytes. maintain K+> 4.0 Continue current diuresis until Cr bumps and then would change to 40mg po daily and set for discharge with follow up bmp as outpatient in 1 week with follow up with me at office day after bmp drawn. Would d/c on the coreg 3.125mg bid. Cardiomyopathy: Severe. Unclear onset. Nonischemic based on Lexiscan. Low- dose carvedilol started. BP did not tolerate addition of lisinopril. Recommend LifeVest at discharge, patient agreeable. Will need 4 months of guideline directed medical therapy and then repeat echocardiogram for consideration of AICD. NSVT/ frequent ventricular ectopy: Beta-boni added, titrate dose as BP allows. will sign off for now. Please call with any further questions.
[2018-05-04] MEDS: Naproxen 250 MG Tablet PO SCH ×2 (09:03→20:50)
[2018-05-04] MEDS: Acyclovir 200 MG Capsule PO SCH ×3 (09:03→17:22)
[2018-05-04] MEDS: metOLazone 5 MG Tablet PO SCH (09:03)
--- NOTE | 2018-05-04 12:22 | P.PNIM ---
Subjective Interval history: Symptoms of sciatica have improved. Gradual decrease in degree of edema. Increasing edema lower extremities. LifeVest placement pending. Physical Exam Vital signs: Vital Signs 05/03/18 16:00 05/03/18 19:00 05/03/18 19:40 Temperature 97.3 F L 97.6 F Pulse Rate 98 H 94 H Respiratory Rate 18 17 Blood Pressure 105/85 99/85 L Pulse Oximetry 97 97 05/03/18 20:00 05/04/18 00:00 05/04/18 01:00 Temperature 96.0 F L Pulse Rate 102 H 92 H 84 Respiratory Rate 21 22 11 L Blood Pressure 82/70 L Pulse Oximetry 98 96 05/04/18 04:00 05/04/18 08:00 Temperature 96.8 F L Pulse Rate 92 H 81 Respiratory Rate 16 17 Blood Pressure 98/87 L 121/91 H Pulse Oximetry 97 Intake & Output 05/03/18 05/04/18 05/04/18 18:59 06:59 18:59 Intake Total 820 / 820 700 / 700 Output Total 2370 / 2370 875 / 875 Balance -1550 / -1550 -175 / -175 Weight 77.4 kg Intake: IV 100 / 100 KCl 20 mEq Premix Inj 20 meq In 100 / 100 100 ml @ 50 mls/hr IV.SIG ONCE ONE Rx#:[id number] Oral 720 / 720 700 / 700 Output: Urine 2370 / 2370 875 / 875 Other: # Voids 2 Date of Last Bowel Movement 05/02/18 05/02/18 # Bowel Movements 3 Narrative: GENERAL: NAD, A&Ox3 HEAD: Normocephalic. NECK: Supple, trachea midline. JVP approximately 10cm EYES: No scleral icterus. No injection or drainage. CARDIOVASCULAR: Regular rate and rhythm without murmurs, gallops, or rubs. RESPIRATORY: Breath sounds equal bilaterally. No accessory muscle use. Crackles at bases of lungs bilaterally. GASTROINTESTINAL: Abdomen soft, non-tender, nondistended. MUSCULOSKELETAL: No cyanosis, bilateral lower extremity edema up to the knees. SKIN: Warm and dry. Scrotal edema. NEURO: No focal neurological deficits. Results - Labs CBC & Chem 7: 05/04/18 04:33 05/04/18 04:33 Laboratory Results - last 24 hr 0905/04/18 05/04/18 12:10 04:33 04:33 CBC w Diff Auto diff final WBC 7.1 RBC 4.61 Hgb 15.5 Hct 46.2 MCV 100.3 H MCH 33.6 MCHC 33.5 RDW 14.2 Plt Count 123 L MPV 8.3 Neut % (Auto) 77.9 H Lymph % (Auto) 9.2 [place] % (Auto) 12.1 H Eos % (Auto) 0.5 Baso % (Auto) 0.3 Neut # (Auto) 5.6 Lymph # (Auto) 0.[address] [place] # (Auto) 0.9 Eos # (Auto) 0.0 Baso # (Auto) 0.0 WBC Differential . Differential Comment . Sodium 138 Potassium 2.9 L* 3.9 D Chloride 97 L Carbon Dioxide 35.2 H Anion Gap 6 BUN 38 H Creatinine 0.97 Estimated GFR 77 L Random Glucose 109 H Calcium 8.4 L Magnesium 1.8 Total Bilirubin 1.5 H AST 119 H ALT 73 Alkaline Phosphatase 114 Total Protein 5.8 L Albumin 2.4 L - Procedures none Assessment and Plan - Plan 68-year-old male admitted secondary to CHF exacerbation and severe CHF and anasarca. Acute systolic CHF exacerbation Anasarca Continue diuresis Follow renal function Continue to monitor clinically for further improvement LifeVest placement pending Sciatica Continue NSAIDs Follow renal function Elevated troponin Likely related to CHF No evidence of acute [place] Cardiology following Continue aspirin Continue beta-boni Hyponatremia Resolved Related to CHF Continue to monitor Hypokalemia Improving continue supplementation replacement as needed Continue diuresis despite DVT prophylaxis Subcutaneous heparin Discharge Planning: Transition out of intermediate care and anticipate discharge in 1-2 days if improvement continues
[2018-05-04] MEDS: LORazepam 0.5 MG Tablet PO PRN (20:50)
[2018-05-05 06:06] LABS: Baso # (Auto) 0.1 th/mm3 (0.0-0.2); Baso % (Auto) 0.7 % (0.0-2.0); Eos % (Auto) 0.1 % (0.0-4.0); Hematocrit 46.7 % (39.0-51.0); Hemoglobin 15.8 gm/dL (13.0-17.0); Lymph # (Auto) 0.9 th/mm3 (1.0-4.8); Mean Corpuscular HGB Conc 33.9 % (32.0-36.0); Mean Corpuscular Hemoglobin 34.1 pg (27.0-34.0); Mean Corpuscular Volume 100.7 fL (80.0-100.0); Mean Platelet Volume 8.6 fL (7.0-11.0); Mono # (Auto) 1.2 th/mm3 (0.0-0.9); Mono % (Auto) 13.2 % (0.0-8.0); Neut # (Auto) 6.6 th/mm3 (1.8-7.7); Platelet Count 131 th/mm3 (150-450); Red Blood Count 4.64 mil/mm3 (4.50-5.90); Red Cell Distribution Width 14.5 % (11.6-17.2); White Blood Count 8.8 th/mm3 (4.0-11.0)
[2018-05-05] MEDS: Heparin - SQ 10,000 UNITS/ML Vial SQ SCH ×2 (06:26→18:34)
[2018-05-05 06:52] LABS: Alanine Aminotransferase 61 U/L (12-78); Albumin 2.5 g/dL (3.4-5.0); Alkaline Phosphatase 108 U/L (45-117); Anion Gap 8 meq/L (5-15); Aspartate Aminotransferase 51 U/L (15-37); Blood Urea Nitrogen 48 mg/dL (7-18); Calcium 8.7 mg/dL (8.5-10.1); Carbon Dioxide 37.4 meq/L (21.0-32.0); Chloride 93 meq/L (98-107); Glomerular Filtration Rate 55 mL/min (>89); Glucose,Random 101 mg/dL (74-106); Magnesium 1.8 mg/dL (1.5-2.5); Potassium 5.1 meq/L (3.5-5.1); Sodium 138 meq/L (136-145)
[2018-05-05] MEDS: metOLazone 5 MG Tablet PO SCH (10:00)
[2018-05-05] MEDS: Acyclovir 200 MG Capsule PO SCH ×3 (10:00→18:34)
[2018-05-05] MEDS: Naproxen 250 MG Tablet PO SCH ×2 (10:00→20:48)
--- NOTE | 2018-05-05 10:15 | P.PNIM ---
Subjective Interval history: Gradual improvement in edema. Legs continue to have decreasing edema, scrotum has decreasing edema. Patient's breathing and exertional tolerance is improving. Today or tomorrow he would have been stable for a jail facility, however patient's coverage of insurance does not allow for him to be able to afford co-pay to obtain this type of treatment. Plan for now is to discharge back to home when stable. Physical Exam Vital signs: Vital Signs 05/04/18 12:00 05/04/18 15:31 05/04/18 19:45 Temperature 96.6 F L 97.0 F L Pulse Rate 94 H 97 H Respiratory Rate 19 19 Blood Pressure 101/68 112/86 Pulse Oximetry 95 97 98 05/04/18 20:00 05/05/18 00:00 05/05/18 04:00 Temperature 96.5 F L 95.4 F L Pulse Rate 84 92 H 87 Respiratory Rate 18 18 18 Blood Pressure 117/86 107/81 113/75 Pulse Oximetry 99 93 L 05/05/18 08:00 Temperature 97.3 F L Pulse Rate 84 Respiratory Rate 18 Blood Pressure 124/83 Pulse Oximetry 96 Intake & Output 05/04/18 05/05/18 05/05/18 18:59 06:59 18:59 Intake Total 960 / 960 240 / 240 Balance 960 / 960 240 / 240 Weight 88.8 kg Intake: Oral 960 / 960 240 / 240 Other: # Voids 1,200 3 Date of Last Bowel Movement 05/02/18 05/02/18 # Bowel Movements 1 3 Narrative: GENERAL: NAD, A&Ox3 HEAD: Normocephalic. NECK: Supple, trachea midline. JVP approximately 10cm EYES: No scleral icterus. No injection or drainage. CARDIOVASCULAR: Regular rate and rhythm without murmurs, gallops, or rubs. RESPIRATORY: Breath sounds equal bilaterally. No accessory muscle use. Crackles at bases of lungs bilaterally. GASTROINTESTINAL: Abdomen soft, non-tender, nondistended. MUSCULOSKELETAL: No cyanosis, bilateral lower extremity edema up to the knees. (Improving) SKIN: Warm and dry. Scrotal edema. (Improving) NEURO: No focal neurological deficits. Results - Labs CBC & Chem 7: 05/05/18 05:27 05/05/18 05:27 Laboratory Results - last 24 hr 05/05/18 05/05/18 05:27 05:27 CBC w Diff Auto diff final WBC 8.8 RBC 4.64 Hgb 15.8 Hct 46.7 MCV 100.7 H MCH 34.1 H MCHC 33.9 RDW 14.5 Plt Count 131 L MPV 8.6 Neut % (Auto) 76.0 H Lymph % (Auto) 10.0 [place] % (Auto) 13.2 H Eos % (Auto) 0.1 Baso % (Auto) 0.7 Neut # (Auto) 6.6 Lymph # (Auto) 0.9 L [place] # (Auto) 1.2 H Eos # (Auto) 0.0 Baso # (Auto) 0.1 WBC Differential . Differential Comment . Sodium 138 Potassium 5.1 D Chloride 93 L Carbon Dioxide 37.4 H Anion Gap 8 BUN 48 H Creatinine 1.30 Estimated GFR 55 L Random Glucose 101 Calcium 8.7 Magnesium 1.8 Total Bilirubin 1.5 H AST 51 H ALT 61 Alkaline Phosphatase 108 Total Protein 6.0 L Albumin 2.5 L - Procedures none Assessment and Plan - Plan 68-year-old male admitted secondary to CHF exacerbation and severe CHF and anasarca. Graduating improvement both in function and symptoms. Plan to discharge to home as, despite having health insurance, the patient cannot afford a jail facility. Acute systolic CHF exacerbation Anasarca Continue diuresis Follow renal function Continue to monitor clinically for further improvement [facility] placement pending Sciatica Continue NSAIDs Follow renal function Elevated troponin Likely related to CHF No evidence of acute [place] Cardiology following Continue aspirin Continue beta-boni Hyponatremia Resolved Related to CHF Continue to monitor Hypokalemia Improving continue supplementation replacement as needed Continue diuresis despite DVT prophylaxis Subcutaneous heparin Discharge Planning: Transition out of intermediate care and anticipate discharge in 1-2 days to home rather than a jail facility
[2018-05-06] MEDS: Heparin - SQ 10,000 UNITS/ML Vial SQ SCH ×2 (06:03→17:54)
[2018-05-06 07:34] LABS: Chloride 94 meq/L (98-107); Potassium 4.9 meq/L (3.5-5.1); Sodium 138 meq/L (136-145)
[2018-05-06 07:43] LABS: Calcium 8.7 mg/dL (8.5-10.1)
[2018-05-06 07:44] LABS: Albumin 2.6 g/dL (3.4-5.0); Anion Gap 8 meq/L (5-15); Carbon Dioxide 36.3 meq/L (21.0-32.0); Glucose,Random 112 mg/dL (74-106)
[2018-05-06 07:51] LABS: Alanine Aminotransferase 46 U/L (12-78); Alkaline Phosphatase 100 U/L (45-117); Aspartate Aminotransferase 32 U/L (15-37); Blood Urea Nitrogen 64 mg/dL (7-18); Glomerular Filtration Rate 46 mL/min (>89); Total Protein 6.1 g/dL (6.4-8.2)
[2018-05-06 09:18] LABS: Baso # (Auto) 0.1 th/mm3 (0.0-0.2); Baso % (Auto) 0.7 % (0.0-2.0); Eos % (Auto) 0.1 % (0.0-4.0); Hemoglobin 16.5 gm/dL (13.0-17.0); Lymph % (Auto) 10.8 % (9.0-44.0); Mean Corpuscular HGB Conc 32.4 % (32.0-36.0); Mean Corpuscular Hemoglobin 32.4 pg (27.0-34.0); Mean Corpuscular Volume 100.1 fL (80.0-100.0); Mean Platelet Volume 8.5 fL (7.0-11.0); Mono % (Auto) 11.3 % (0.0-8.0); Neut # (Auto) 6.8 th/mm3 (1.8-7.7); Neut % (Auto) 77.1 % (16.0-70.0); Platelet Count 170 th/mm3 (150-450); Red Cell Distribution Width 14.4 % (11.6-17.2); White Blood Count 8.9 th/mm3 (4.0-11.0)
--- NOTE | 2018-05-06 09:35 | P.PNIM ---
Subjective Interval history: Mild acute kidney injury present today. This is likely related to diuresis, and patient has reached threshold of maximum possible diuresis. Clinically has improved through time with this diuresis. He is weaned back to higher than baseline dose. Previously he was on 20 mg of Lasix p.o. daily, now he will be discharged eventually on 40 mg p.o. daily. Physical Exam Vital signs: Vital Signs 05/05/18 12:00 05/05/18 16:00 05/05/18 20:00 Temperature 97.3 F L 97.7 F 98.9 F Pulse Rate 88 79 89 Respiratory Rate 18 18 16 Blood Pressure 128/76 111/83 140/102 H Pulse Oximetry 95 95 97 05/06/18 00:00 05/06/18 04:00 05/06/18 08:00 Temperature 98.7 F 98.7 F Pulse Rate 84 85 Respiratory Rate 16 16 Blood Pressure 139/98 H 130/84 Pulse Oximetry 98 98 98 Intake & Output 05/05/18 05/06/18 05/06/18 18:59 06:59 18:59 Intake Total 600 / 600 Balance 600 / 600 Weight 85.3 kg Intake: Oral 600 / 600 Other: # Voids 5 3 # Bowel Movements 1 1 Narrative: GENERAL: NAD, A&Ox3 HEAD: Normocephalic. NECK: Supple, trachea midline. JVP approximately 10cm EYES: No scleral icterus. No injection or drainage. CARDIOVASCULAR: Regular rate and rhythm without murmurs, gallops, or rubs. RESPIRATORY: Breath sounds equal bilaterally. No accessory muscle use. Crackles at bases of lungs bilaterally. GASTROINTESTINAL: Abdomen soft, non-tender, nondistended. MUSCULOSKELETAL: No cyanosis, bilateral lower extremity edema up to the knees. (Improving) SKIN: Warm and dry. Scrotal edema. (Improving) NEURO: No focal neurological deficits. Results - Labs CBC & Chem 7: 05/06/18 07:35 05/06/18 06:55 Laboratory Results - last 24 hr 05/06/18 05/06/18 06:55 07:35 CBC w Diff Auto diff final WBC 8.9 RBC 5.10 Hgb 16.5 Hct 51.0 MCV 100.1 H MCH 32.4 MCHC 32.4 RDW 14.4 Plt Count 170 MPV 8.5 Neut % (Auto) 77.1 H Lymph % (Auto) 10.8 [place] % (Auto) 11.3 H Eos % (Auto) 0.1 Baso % (Auto) 0.7 Neut # (Auto) 6.8 Lymph # (Auto) 1.0 [place] # (Auto) 1.0 H Eos # (Auto) 0.0 Baso # (Auto) 0.1 WBC Differential . Differential Comment . Sodium 138 Potassium 4.9 Chloride 94 L Carbon Dioxide 36.3 H Anion Gap 8 BUN 64 H Creatinine 1.50 H Estimated GFR 46 L Random Glucose 112 H Calcium 8.7 Total Bilirubin 1.5 H AST 32 ALT 46 Alkaline Phosphatase 100 Total Protein 6.1 L Albumin 2.6 L - Procedures none Assessment and Plan - Plan 68-year-old male admitted secondary to CHF exacerbation and severe CHF and anasarca. Wean off high-dose IV Lasix secondary to mild acute kidney injury. Transition to p.o. Lasix which will be his new home dose of 40 mg p.o. daily. Acute systolic CHF exacerbation Anasarca Increase diuresis Follow renal function Continue to monitor clinically for further improvement At best. Sciatica Continue NSAIDs Follow renal function Elevated troponin Likely related to CHF No evidence of acute [place] Cardiology following Continue aspirin Continue beta-boni Hyponatremia Resolved Related to CHF Continue to monitor Hypokalemia Improving continue supplementation replacement as needed Continue diuresis despite DVT prophylaxis Subcutaneous heparin Discharge Planning: Transition out of intermediate care and anticipate discharge in 1-2 days to home rather than a correction facility
[2018-05-06 09:59] VITALS: RESP 18
[2018-05-06] MEDS: Naproxen 250 MG Tablet PO SCH ×3 (10:59→21:29)
[2018-05-06] MEDS: Acyclovir 200 MG Capsule PO SCH ×3 (11:00→17:55)
[2018-05-06] MEDS: LORazepam 0.5 MG Tablet PO PRN (19:46)
[2018-05-06] MEDS: metOLazone 5 MG Tablet PO SCH (21:30)
[2018-05-07] MEDS: LORazepam 0.5 MG Tablet PO PRN (05:04)
[2018-05-07] MEDS: Heparin - SQ 10,000 UNITS/ML Vial SQ SCH (05:04)
[2018-05-07 07:56] LABS: Baso % (Auto) 0.3 % (0.0-2.0); Eos % (Auto) 0.6 % (0.0-4.0); Hematocrit 46.6 % (39.0-51.0); Hemoglobin 15.4 gm/dL (13.0-17.0); Lymph # (Auto) 0.9 th/mm3 (1.0-4.8); Lymph % (Auto) 12.7 % (9.0-44.0); Mean Corpuscular Volume 99.9 fL (80.0-100.0); Mean Platelet Volume 8.6 fL (7.0-11.0); Mono # (Auto) 0.9 th/mm3 (0.0-0.9); Neut # (Auto) 5.2 th/mm3 (1.8-7.7); Neut % (Auto) 73.4 % (16.0-70.0); Platelet Count 150 th/mm3 (150-450); Red Blood Count 4.66 mil/mm3 (4.50-5.90); Red Cell Distribution Width 14.3 % (11.6-17.2)
[2018-05-07 08:03] LABS: Chloride 95 meq/L (98-107); Potassium 4.4 meq/L (3.5-5.1); Sodium 138 meq/L (136-145)
[2018-05-07 08:11] LABS: Calcium 8.4 mg/dL (8.5-10.1); Glucose,Random 120 mg/dL (74-106)
[2018-05-07 08:12] LABS: Albumin 2.4 g/dL (3.4-5.0); Anion Gap 6 meq/L (5-15); Blood Urea Nitrogen 62 mg/dL (7-18); Carbon Dioxide 37.3 meq/L (21.0-32.0)
[2018-05-07 08:15] LABS: Alanine Aminotransferase 33 U/L (12-78); Aspartate Aminotransferase 27 U/L (15-37); Glomerular Filtration Rate 55 mL/min (>89)
[2018-05-07 08:17] LABS: Total Protein 5.5 g/dL (6.4-8.2)
[2018-05-07 08:18] LABS: Alkaline Phosphatase 83 U/L (45-117)
[2018-05-07] MEDS: Naproxen 250 MG Tablet PO SCH (08:58)
[2018-05-07] MEDS: Acyclovir 200 MG Capsule PO SCH ×2 (08:58→12:51)
[2018-05-07] MEDS ORDERED: Furosemide 40 MG Tablet PO SCH (09:00)
[2018-05-07 09:38] VITALS: BP 127/81; PULSE 104; TEMP 97.6; O2SAT 95
--- NOTE | 2018-05-07 11:04 | P.DCO ---
- Physical Therapy Order: Evaluate and treat, Improve ambulation, Strength and gait training - Home Health Nursing Order: Signs/symptoms of disease process, Nursing assessment with vital signs - Case Management Consult Yes - Certification I have seen patient Shahriar Diego on 05/07/18. My clinical findings support the need for the requested home health care services because: Limited mobility due to disease progression, Patient has SOB, Deconditioned with increased weakness, Limited ability to care for self, High risk of falls I certify that my clinical findings support that this patient is homebound because: Unsteady gait/balance, Unsafe to leave home unassisted, Unable to use public transportation, Poor cardiac reserve
--- NOTE | 2018-05-07 11:07 | P.DS ---
Date of admission: 04/29/18 14:33 Primary care physician: UNKNOWN Brief History from admission: This is a 68-year-old male with a history of BPH and herpes. He presents to the emergency department because of bilateral lower extremity swelling. Started several weeks ago with worsening bilateral lower extremity swelling involving the scrotum and shortness of breath worse with exertion. Patient claims compliance with medical therapy. Denies chest pain, fever, chills, cough , palpitations and urinary changes. Recently started on acyclovir because of herpetic lesions involving the abdomen and bilateral lower extremities. In the emergency department, he was started on IV Lasix. This morning he was doing better tolerating room air when he turned blue when he was rolled over. At that time patient also complained of shortness of breath. Oxygen was given with improvement of cyanosis. ABG shows a pH of 7.39 PCO2 34 PO2 143 on 3 L nasal cannula. Troponin of 0.13 denies history of coronary artery disease. EKG interpreted by me with sinus tachycardia PVC and incomplete right bundle branch block. All other systems reviewed negative. DS: Medications - Discharge Medications Prescriptions: carvedilol [Coreg] 3.125 mg PO BID #60 tab furosemide 40 mg PO DAILY #30 tab metolazone 2.5 mg PO BID #60 tab potassium chloride [Klor-Con 10] 10 meq PO BID #60 tab tamsulosin 0.4 mg PO DAILY #30 cap DS: Summary Hospital Course: Mr. Diego is a 68-year-old male. He has severe CHF at baseline with an ejection fraction of approximately 11%. He was admitted due to a severe CHF exacerbation. Diuresis has been provided at an increased dose from baseline since 04/29/2018. His prior baseline had been Lasix 20 mg p.o. daily. This does not appear to be enough to hold him study. Lasix was transitioned from his treatment of 80 mg IV twice daily to 40 mg p.o. daily, yesterday, due to signs of mild dehydration with acute kidney injury. Patient's creatinine has now trended back towards baseline and is within normal limits today. Patient is feeling at baseline and can ambulate on his own. He is medically stable and cleared for discharge to home on new treatments and with physical therapy. - Time Spent with Patient Total time spent providing and/or coordinating discharge services: Less than 30 minutes - Quality: VTE Deep Vein Thrombosis/Pulmonary Embolism Present on Admission: No Exam Vital signs: Vital Signs 05/06/18 12:00 05/06/18 16:00 05/06/18 19:28 Temperature 97.8 F 97.6 F Pulse Rate 72 92 H Respiratory Rate 18 18 Blood Pressure 119/81 125/81 Pulse Oximetry 95 95 98 05/06/18 20:00 05/07/18 00:00 05/07/18 08:00 Temperature 97.4 F L 96.6 F L 97.6 F Pulse Rate 93 H 93 H 104 H Respiratory Rate 18 18 18 Blood Pressure 109/81 113/88 127/81 Pulse Oximetry 96 93 L 95 Intake & Output 05/06/18 05/07/18 05/07/18 18:59 06:59 18:59 Intake Total 780 / 780 960 / 960 Balance 780 / 780 960 / 960 Weight 85.5 kg Intake: Oral 780 / 780 960 / 960 Other: # Voids 4 4 # Bowel Movements 1 2 Results Procedures completed during hospitalization: none Labs on day of discharge: Labs from last 24 hours 05/07/18 05/07/18 07:23 07:23 CBC w Diff Auto diff final WBC 7.0 RBC 4.66 Hgb 15.4 Hct 46.6 MCV 99.9 MCH 33.0 MCHC 33.0 RDW 14.3 Plt Count 150 MPV 8.6 Neut % (Auto) 73.4 H Lymph % (Auto) 12.7 [place] % (Auto) 13.0 H Eos % (Auto) 0.6 Baso % (Auto) 0.3 Neut # (Auto) 5.2 Lymph # (Auto) 0.9 L [place] # (Auto) 0.9 Eos # (Auto) 0.0 Baso # (Auto) 0.0 WBC Differential . Differential Comment . Sodium 138 Potassium 4.4 Chloride 95 L Carbon Dioxide 37.3 H Anion Gap 6 BUN 62 H Creatinine 1.30 Estimated GFR 55 L Random Glucose 120 H Calcium 8.4 L Total Bilirubin 1.0 AST 27 ALT 33 Alkaline Phosphatase 83 Total Protein 5.5 L D Albumin 2.4 L - Impressions ITS Impressions Chest X-Ray 04/28/18 00:00 CONCLUSION: 1. Bibasilar patchy densities consistent with atelectasis and/or infiltrates. Clinical correlation is recommended. 2. Cardiomegaly. Myocardial Perfusion Scan [facility] 04/29/18 00:00 CONCLUSION: 1. Global hypokinesis with EF of 14% and dilated left ventricle. 2. No definite reversible perfusion defects are identified to suggest stress- induced myocardial ischemia at this time. Discharge Plan - Discharge Disposition Patient Disposition: /Home Health Service - Discharge Condition Condition: Stable - Discharge Order Discharge Orders: Discharge Order (Routine); Ordered 05/07/18 Ordered By: Jerome Zheng - Discharge Details Anticipated Discharge Date: 05/07/18 - Physicians Team Primary Care Provider: UNKNOWN, Attending Provider: Jerome Zheng Other Providers: Dash Brody MD
== END 2018-05-07 13:04 | disposition home health service (06) ==
LOC: PHED 14:46 → PHEDA 14:46 → PHICU 21:45 → PH3 05-04 06:19
PROVIDERS: ADMIT Hospitalist; ATTEND Hospitalist

== ENCOUNTER 2018-06-13 17:24 | Inpatient (IN) ==
--- NOTE | 2018-06-13 18:41 | ED ---
HPI General Chief complaint: Extremity Problem,Nontraumatic Stated complaint: SWOLLEN LEGS/FEET SCROTAL AREA [id number] Time Seen by Provider: 06/13/18 18:37 Source: patient Mode of arrival: ambulatory Limitations: no limitations History of Present Illness HPI narrative: 68-year-old male patient with previous history of chronic leg edema presents to the ER today because he states that he is still taking his Lasix but he states that over the last few months his legs become more more swollen and his scrotum has become more more swollen to the point where he is having difficulty urinating. He states that he is having some shortness of breath with exertion. He denies any chest pains, fevers, or other symptoms. He states that it worsens when he walks around. Related Data Home Medications Medication Instructions Recorded Confirmed aspirin 325 mg PO DAILY 06/13/18 06/13/18 furosemide 20 mg PO DAILY 06/13/18 06/13/18 Previous Rx's Medication Instructions Recorded acyclovir 400 mg PO TID #30 tab 04/07/18 metolazone 2.5 mg PO BID #60 tab 05/01/18 potassium chloride [Klor-Con 10] 10 meq PO BID #60 tab 05/07/18 tamsulosin 0.4 mg PO DAILY #30 cap 05/07/18 Allergies Allergy/AdvReac Type Severity Reaction Status Date / Time No Known Allergies Allergy Verified 06/13/18 17:55 Review of Systems ROS: all other systems reviewed are negative PMFSH History History Provided By: Patient Medical History Medical History BPH (benign prostatic hyperplasia) (Acute) Edema (Acute) HTN (hypertension) (Acute) Herpes (Acute) Surgical History Surgical History Hx of tonsillectomy (Acute) Family History Family History Other CVA (cerebral vascular accident) Social History Social History Substance History: Active Abuse Second Hand Smoke Exposure: Yes Smoking Status: Heavy tobacco smoker Tobacco Type: Cigarettes How Often Do You Have a Drink Containing Alcohol: 4 or more times a week Recent Travel in [facility] within the Last 8 Weeks: No Recent Out of Country Travel within the Last 8 Weeks: No Exam Narrative Exam Narrative: GENERAL: Well-developed elderly white male patient currently and mild to moderate distress. Awake and oriented x3. SKIN: Focused skin assessment warm/dry. HEAD: Atraumatic. Normocephalic. EYES: Pupils equal and round. No scleral icterus. No injection or drainage. ENT: No nasal bleeding or discharge. Mucous membranes pink and moist. NECK: Trachea midline. No JVD. CARDIOVASCULAR: Regular rate and rhythm. No murmur appreciated. RESPIRATORY: No accessory muscle use. Clear to auscultation. Breath sounds equal bilaterally. GASTROINTESTINAL: Abdomen soft, non-tender, nondistended. Hepatic and splenic margins not palpable. GENITOURINARY: Intense edema of both scrotum as well as penis, nontender to palpation. MUSCULOSKELETAL: No obvious deformities. No clubbing. No cyanosis. +3-+4 pitting edema of both legs. NEUROLOGICAL: Awake and alert. No obvious cranial nerve deficits. Motor grossly within normal limits. Normal speech. PSYCHIATRIC: Appropriate mood and affect; insight and judgment normal. Course Initial Documented Vital Signs Temperature 97.4 F L 06/13/18 17:51 Pulse Rate 108 H 06/13/18 17:51 Respiratory Rate 20 06/13/18 17:51 Blood Pressure 99/69 L 06/13/18 17:51 Pulse Oximetry 94 L 06/13/18 17:51 Last Documented Vital Signs Temperature 97.4 F L 06/13/18 17:51 Pulse Rate 105 H 06/13/18 19:18 Respiratory Rate 16 06/13/18 19:00 Blood Pressure 120/97 H 06/13/18 19:52 Pulse Oximetry 98 06/13/18 19:18 Sign Out Sign Out Data: Patient Sign Out occurred on 06/13/18 at 19:24. Patient's care was discussed, and care was transferred from Jolene Villatoro MD to Camila Gallegos MD. Sign Out Comment: Case is signed out to oncoming physician awaiting workup. Last updated by Jolene Villatoro MD at 06/13/18 18:45 Medical Decision Making MDM Narrative Medical decision making narrative: At 7:10 PM patient accepted in transfer of care from Dr. Villatoro for follow-up of patient presenting with 2 months of dyspnea with progressively worsening lower extremity edema and scrotal edema. Patient with bilateral lower leg erythema. Patient reports dyspnea on exertion. Patient denies any orthopnea or PND or dyspnea at rest. Patient is resting supine denying any shortness of breath at this time. Patient states dyspnea is associated with exertion. No fever no chills no nausea no vomiting no chest pain no abdominal pain no dysuria frequency urgency no diarrhea no constipation has noted some dark stool but denies any bloody stool. Patient denies any blood thinning agents. Patient was noted to be hypotensive upon initial presentation and a 500 cc bolus of normal saline has been ordered along with a one-time dose of vancomycin prior to arrival. Patient has been ordered labs for follow-up and interpretation by prior physician chest x-ray pending EKG added as well as troponin I and magnesium. Review of medical records indicates patient does smoke cigarettes daily as well as drinks alcohol frequently and admits to marijuana use. Patient having good urine output. At 8:20 PM patient resting comfortably supine in no acute respiratory distress voicing no complaints reports he feels improved; patient has received 500 cc bolus of normal saline; lab values are resulted CBC with automated differential total white cell count is 7200 stable hemoglobin hematocrit and platelet count without significant left shift 76% neutrophils with automated differential lactic acid is not elevated at 0.9 patient is afebrile; chemistries remarkable for BUN and creatinine of 34/1.10 respectively bicarb is 32.5 with a normal range anion gap of 8 potassium is in normal range at 3.6 and sodium is 135 troponin I is elevated at 0.09 patient denies any chest pain; BNP is 3923 markedly elevated although chest x-ray reveals clear lungs no cephalization chronic cardiomegaly consistent with his history of nonischemic cardiomyopathy with EF of 14% by nuclear medicine study 04/29/18 and no evidence of ischemia patient states that he does not take the carvedilol prescribed for him at time of discharge from his 922 visit and he states he does not wear his LifeVest that was prescribed for him and that he was discharged with because it is inconvenient and uncomfortable. Patient states he does want to be a full code. Patient's blood pressure has improved after 500 cc bolus of normal saline. Call placed to [facility] service for admission --discussed with Dr Rossi inpatient admission wants lasix administration --discussed low dose x 1 in the ED. informed that patient does smoke daily also drinks alcohol multiple times per week and uses marijuana. May require CIWA precautions magnesium is 2.0. Medical Screen Exam Complete: Yes Emergency Medical Condition: Yes Differential Diagnosis Differential Diagnosis: Dependent edema versus CHF versus acute renal failure/ fluid overload Medical Records Medical records reviewed: Yes I reviewed the patient's medical records. At last hospitalization patient was identified to have an EF of 14% with global hypokinesis by nuclear medicine study. No reversible defects. At time of cardiology sign off recommendation for possible LifeVest candidate. Lab Data Lab results reviewed: Yes I reviewed the patient's lab results. Result diagrams: 06/13/18 19:10 06/13/18 19:10 Lab Results 06/13/18 06/13/18 06/13/18 Range/Units 19:10 19:10 19:10 CBC w Diff Slide review pending WBC 7.2 (4.0-11.0) th/mm3 RBC 4.28 L (4.50-5.90) mil/mm3 Hgb 14.5 (13.0-17.0) gm/dL Hct 43.8 (39.0-51.0) % MCV 102.4 H (80.0-100.0) fL MCH 33.8 (27.0-34.0) pg MCHC 33.0 (32.0-36.0) % RDW 16.7 (11.6-17.2) % Plt Count 143 L (150-450) th/mm3 MPV 7.2 (7.0-11.0) fL Neut % (Auto) 76.6 H (16.0-70.0) % Lymph % (Auto) 10.1 (9.0-44.0) % Morris % (Auto) 11.8 H (0.0-8.0) % Eos % (Auto) 0.4 (0.0-4.0) % Baso % (Auto) 1.1 (0.0-2.0) % Neut # (Auto) 5.6 (1.8-7.7) th/mm3 Lymph # (Auto) 0.7 L (1.0-4.8) th/mm3 Morris # (Auto) 0.8 (0.0-0.9) th/mm3 Eos # (Auto) 0.0 (0.0-0.4) th/mm3 Baso # (Auto) 0.1 (0.0-0.2) th/mm3 WBC Differential . Diff Scan Auto diff confirmed Differential Comment . Platelet Estimate Low L (Normal) Platelet Morphology Normal (Normal) Ovalocytes 1+ H (None) Sodium 135 L (136-145) meq/L Potassium 3.6 (3.5-5.1) meq/L Chloride 95 L (98-107) meq/L Carbon Dioxide 32.5 H (21.0-32.0) meq/L Anion Gap 8 (5-15) meq/L BUN 34 H (7-18) mg/dL Creatinine 1.10 (0.60-1.30) mg/dL Estimated GFR 66 L (>89) mL/min Random Glucose 92 (74-106) mg/dL Lactic Acid (0.4-2.0) mmol/L Calcium 8.6 (8.5-10.1) mg/dL Magnesium 2.0 (1.5-2.5) mg/dL Total Bilirubin 0.8 (0.2-1.0) mg/dL AST 26 (15-37) U/L ALT 18 (12-78) U/L Alkaline Phosphatase 83 (45-117) U/L Troponin I 0.09 H (0.02-0.05) ng/mL B-Natriuretic Peptide 3923 H (0-100) pg/mL Total Protein 5.4 L (6.4-8.2) g/dL Albumin 2.4 L (3.4-5.0) g/dL Urine Color (Yellw/Straw) Urine Clarity (Clear) Urine pH (5.0-8.5) Ur Specific [place] (1.002-1.035) Urine Protein (Neg-Trace) mg/dL Urine Glucose (UA) (Negative) mg/dL Urine Ketones (Negative) mg/dL Urine Occult Blood (Negative) Urine Nitrate (Negative) Urine Bilirubin (Negative) Urine Urobilinogen (Less than 2) mg/dL Ur Leukocyte Esterase (Negative) Urine RBC (0-3) /hpf Urine WBC (0-5) /hpf Ur Squamous Epith Cells (0-5) /hpf Urine Sperm (None) /hpf Micro UA Comment Ur Microscopic Review Urine Culture Comments Urine Opiates Screen (Neg) Ur Barbiturates Screen (Neg) Ur Amphetamines Screen (Neg) U Benzodiazepines Scrn (Neg) Urine Cocaine Screen (Neg) U Cannabinoids Screen (Neg) Serum Alcohol Less than 3 (0-5) mg/dL 06/13/18 06/13/18 06/13/18 Range/Units 19:10 19:40 19:40 CBC w Diff WBC (4.0-11.0) th/mm3 RBC (4.50-5.90) mil/mm3 Hgb (13.0-17.0) gm/dL Hct (39.0-51.0) % MCV (80.0-100.0) fL MCH (27.0-34.0) pg MCHC (32.0-36.0) % RDW (11.6-17.2) % Plt Count (150-450) th/mm3 MPV (7.0-11.0) fL Neut % (Auto) (16.0-70.0) % Lymph % (Auto) (9.0-44.0) % Morris % (Auto) (0.0-8.0) % Eos % (Auto) (0.0-4.0) % Baso % (Auto) (0.0-2.0) % Neut # (Auto) (1.8-7.7) th/mm3 Lymph # (Auto) (1.0-4.8) th/mm3 Morris # (Auto) (0.0-0.9) th/mm3 Eos # (Auto) (0.0-0.4) th/mm3 Baso # (Auto) (0.0-0.2) th/mm3 WBC Differential Diff Scan Differential Comment Platelet Estimate (Normal) Platelet Morphology (Normal) Ovalocytes (None) Sodium (136-145) meq/L Potassium (3.5-5.1) meq/L Chloride (98-107) meq/L Carbon Dioxide (21.0-32.0) meq/L Anion Gap (5-15) meq/L BUN (7-18) mg/dL Creatinine (0.60-1.30) mg/dL Estimated GFR (>89) mL/min Random Glucose (74-106) mg/dL Lactic Acid 0.9 (0.4-2.0) mmol/L Calcium (8.5-10.1) mg/dL Magnesium (1.5-2.5) mg/dL Total Bilirubin (0.2-1.0) mg/dL AST (15-37) U/L ALT (12-78) U/L Alkaline Phosphatase (45-117) U/L Troponin I (0.02-0.05) ng/mL B-Natriuretic Peptide (0-100) pg/mL Total Protein (6.4-8.2) g/dL Albumin (3.4-5.0) g/dL Urine Color Yellow (Yellw/Straw) Urine Clarity Clear (Clear) Urine pH 6.0 (5.0-8.5) Ur Specific [place] 1.020 (1.002-1.035) Urine Protein 30 H (Neg-Trace) mg/dL Urine Glucose (UA) Negative (Negative) mg/dL Urine Ketones Trace H (Negative) mg/dL Urine Occult Blood Negative (Negative) Urine Nitrate Negative (Negative) Urine Bilirubin Negative (Negative) Urine Urobilinogen 0.2 (Less than 2) mg/dL Ur Leukocyte Esterase Negative (Negative) Urine RBC 0-3 (0-3) /hpf Urine WBC 0-5 (0-5) /hpf Ur Squamous Epith Cells 0-5 (0-5) /hpf Urine Sperm Few H (None) /hpf Micro UA Comment Culture not ind Ur Microscopic Review Microscopic reviewed Urine Culture Comments Culture not ind Urine Opiates Screen Neg (Neg) Ur Barbiturates Screen Neg (Neg) Ur Amphetamines Screen Neg (Neg) U Benzodiazepines Scrn Neg (Neg) Urine Cocaine Screen Neg (Neg) U Cannabinoids Screen Pos H (Neg) Serum Alcohol (0-5) mg/dL Imaging Data Radiologist's impression: Chest X-Ray 06/13/18 18:37 CONCLUSION: Clear lungs. ECG Data Interpretation: EKG: Sinus tachycardia rate 100 with frequent PVCs incomplete right bundle branch block noted previously left anterior fascicular block no acute ST elevation or injury pattern noted at this time. Discharge Plan Discharge Disposition Patient Disposition: 30 Still Patient Discharge Condition Condition: Stable Discharge Details Diagnosis: Anasarca, Dilated cardiomyopathy, Exertional dyspnea, CHF (congestive heart failure) Physicians Team ED Provider: Camila Gallegos Rxs /Orders / Referrals /Forms Prescriptions: No Action acyclovir 400 mg tablet 400 mg PO TID Qty: 30 RF: 0 metolazone 2.5 mg Tablet 2.5 mg PO BID Qty: 60 RF: 0 potassium chloride [Klor-Con 10] 10 mEq Tablet Extended Release 10 meq PO BID Qty: 60 RF: 0 tamsulosin 0.4 mg Capsule 0.4 mg PO DAILY Qty: 30 RF: 0 aspirin 325 mg Tablet 325 mg PO DAILY RF: 0 furosemide 40 mg tablet 20 mg PO DAILY RF: 0 Status ED Status: With Doctor
[2018-06-13 19:21] LABS: Baso # (Auto) 0.1 th/mm3 (0.0-0.2); Baso % (Auto) 1.1 % (0.0-2.0); Eos % (Auto) 0.4 % (0.0-4.0); Hematocrit 43.8 % (39.0-51.0); Hemoglobin 14.5 gm/dL (13.0-17.0); Lymph # (Auto) 0.7 th/mm3 (1.0-4.8); Lymph % (Auto) 10.1 % (9.0-44.0); Mean Corpuscular Hemoglobin 33.8 pg (27.0-34.0); Mean Corpuscular Volume 102.4 fL (80.0-100.0); Mean Platelet Volume 7.2 fL (7.0-11.0); Mono # (Auto) 0.8 th/mm3 (0.0-0.9); Mono % (Auto) 11.8 % (0.0-8.0); Neut # (Auto) 5.6 th/mm3 (1.8-7.7); Neut % (Auto) 76.6 % (16.0-70.0); Platelet Count 143 th/mm3 (150-450); Red Blood Count 4.28 mil/mm3 (4.50-5.90); Red Cell Distribution Width 16.7 % (11.6-17.2); White Blood Count 7.2 th/mm3 (4.0-11.0)
--- NOTE | 2018-06-13 19:27 | XR ---
EXAM DATE: 06/13/2018 7:24 PM EST AGE/SEX: 68 years / Male INDICATIONS: Shortness of breath. CLINICAL DATA: This is the patient's initial encounter. Patient reports that signs and symptoms have been present for 3 days and indicates a pain score of 0/10. MEDICAL/SURGICAL HISTORY: None. None. COMPARISON: [facility], CHEST 1V SINGLE AP, 04/28/2018. . FINDINGS: Cardiomegaly. Clear lungs. Osseous structures are intact. CONCLUSION: Clear lungs. Electronically signed by: Gavin Benavidez MD 06/13/2018 7:26 PM EST
[2018-06-13 19:29] LABS: Chloride 95 meq/L (98-107); Potassium 3.6 meq/L (3.5-5.1); Sodium 135 meq/L (136-145)
[2018-06-13 19:32] LABS: Calcium 8.6 mg/dL (8.5-10.1)
[2018-06-13 19:33] LABS: Albumin 2.4 g/dL (3.4-5.0); Anion Gap 8 meq/L (5-15); Blood Urea Nitrogen 34 mg/dL (7-18); Carbon Dioxide 32.5 meq/L (21.0-32.0); Glucose,Random 92 mg/dL (74-106)
[2018-06-13 19:36] LABS: Alanine Aminotransferase 18 U/L (12-78); Aspartate Aminotransferase 26 U/L (15-37); Glomerular Filtration Rate 66 mL/min (>89)
[2018-06-13 19:38] LABS: Total Protein 5.4 g/dL (6.4-8.2)
[2018-06-13 19:39] LABS: Alkaline Phosphatase 83 U/L (45-117); Ovalocytes 1+; Platelet Morphology Normal (Normal)
[2018-06-13 19:55] LABS: Bilirubin,Urine Negative (Negative); Clarity,Urine Clear (Clear); Color,Urine Yellow (Yellw/Straw); Glucose,Urine (UA) Negative (Negative); Leukocyte Esterase,Urine Negative (Negative); Nitrite,Urine Negative (Negative); Urobilinogen,Urine 0.2 mg/dL (Less than 2)
[2018-06-13 19:56] LABS: Troponin I 0.09 ng/mL (0.02-0.05)
[2018-06-13] MEDS ORDERED: Sodium Chlor 0.9% Inj 500 ML IV.SIG SCH (20:00)
[2018-06-13] MEDS ORDERED: Vancomycin Inj 1,000 MG in Sodium Chlor 0.9% Inj 250 ML IV.SIG SCH (20:00)
[2018-06-13 20:02] LABS: Amphetamine Screen,Urine Neg (Neg); Barbiturate Screen,Urine Neg (Neg); Cannabinoid Screen,Urine Pos (Neg); Cocaine Screen,Urine Neg (Neg)
[2018-06-13 20:03] LABS: RBC,Urine 0-3 /hpf (0-3); Squamous Epithelial Cell,Urine 0-5 /hpf (0-5); WBC,Urine 0-5 /hpf (0-5)
[2018-06-13 20:04] LABS: Sperm,Urine Few /hpf
[2018-06-13 20:10] LABS: Opiate Screen,Urine Neg (Neg)
[2018-06-13] MEDS ORDERED: Bisacodyl 10 MG Supp RECTAL PRN (20:34)
[2018-06-14] MEDS ORDERED: Influenza (Quadrivalent) Vaccine 0.5 ML Syringe IM ONE (09:00)
--- NOTE | 2018-06-14 09:12 | MB ---
cc: Rolanda Nava MD DATE: 06/14/2018 REASON FOR CONSULTATION: CHF. HISTORY OF PRESENT ILLNESS: Mr. Diego is a 68-year-old man, who does have a history of systolic heart failure. He was admitted in April, and underwent a cardiac workup, which included a nonischemic nuclear stress test showing an EF of 14%. An echocardiogram also showed an EF of less than 20%, and severe mitral regurgitation. The patient reports that he was compliant with his Lasix, though he does not have a taker off braker machine or a primary that he is following with. Nonetheless, he indicates that he does drink a lot of fluids, and particularly coffee and loves gardner. Consequently, he has had progressive lower extremity and scrotal edema that precipitated his emergency room visit. ALLERGIES: NO KNOWN DRUG ALLERGIES. OUTPATIENT MEDICATIONS: Include his Lasix. PAST MEDICAL HISTORY: Includes systolic heart failure, BPH, edema, and herpes. FAMILY HISTORY: Noncontributory. SOCIAL HISTORY: The patient does smoke. REVIEW OF SYSTEMS: Except as mentioned in the HPI, all 12 systems are negative. PHYSICAL EXAMINATION: VITAL SIGNS: 94, 14, 99/79, I guess GENERAL: He is an unkept-appearing gentleman, who is in no apparent distress. LUNGS: Decreased, but clear to auscultation. HEART: There is a 3/6 holosystolic murmur. No rubs or gallops are appreciated. ABDOMEN: Soft. GENITOURINARY: The scrotum is swollen. EXTREMITIES: Swollen lower extremities. IMAGING: Chest x-ray shows clear lungs. LABORATORY DATA: Significant for serial troponins of 0.09/0.08/0.08 and a BNP of 3923. Creatinine is 1.1. EKG: EKG shows sinus tachycardia with nonspecific ST-T wave changes. IMPRESSION AND PLAN: Acute on chronic systolic heart failure. The patient does have a history of the same. I suspect this is, in the large part, secondary to noncompliance. I do agree with diuresis. He reports he is significantly better today. I will add p.o. Lasix. Fluid and sodium restrictions will also be helpful. Beta boni is required. If he is able to tolerate, we will consider adding an JAY inhibitor in the future. MD OLIVIA Adkins/rh , 07:51 AM , 08:00 AM
[2018-06-14] MEDS: Aspirin 325 MG Tablet PO SCH (10:16)
[2018-06-14] MEDS: Furosemide 40 MG Tablet PO SCH ×2 (10:16→17:33)
--- NOTE | 2018-06-14 15:37 | P.HP ---
History of Present Illness Primary Care Physician: No Primary Care Physician Chief Complaint: Lower extremity edema, scrotal edema, difficulty in urinating History of Present Illness: 68-year-old male with known history of severe dilated cardiomyopathy with ejection fraction less than 20%, chronic systolic congestive heart failure, chronic tobacco use, chronic marijuana use, chronic alcohol abuse, noncompliance who presented the hospital because of lower extremity edema, scrotal edema where it was difficult for him to urinate. Patient was just recently hospitalized and discharged on in which patient was supplied a LifeVest aware in outpatient setting. However patient has not been using it. He is to continue to drink alcohol at least 3-5 drinks daily, continue to smoke cigarettes and marijuana. He is rather noncompliant but he presented to the hospital. Patient came to the emergency department and had workup done and found to have an elevated BNP, flat and equivocal troponin, anasarca. Patient was given Lasix with significant improvement of his edema as well as scrotal swelling. Patient does have a urinal which is half full in his room. He states that his scrotal edema is significantly improved. Patient denies any chest pain, shortness of breath, dyspnea. - Diagnosis (1) Anasarca Inpatient Certification: I certify that the inpatient services were ordered in accordance with Medicare regulations governing the order. This includes certification that hospital inpatient services are reasonable and necessary and in the case of services not specified as inpatient-only under 42 CFR 419.22(n), that they are appropriately provided as inpatient services in accordance to with the 2-midnight benchmark under 43 CFR 412.3(e) Estimated Total Length of Stay (Days): 3 Plans for Post Hospital Care: Home Review of Systems All other systems reviewed negative except as stated in HPI Cardiovascular: Reports foot swelling, Reports leg swelling Genitourinary: Reports scrotal swelling PMFSH - History History Provided By: Patient - Medical History Medical History: Medical History (Last Updated 06/14/18 @ 15:33 by ADAM Mondragon) Alcohol abuse Dilated cardiomyopathy Marijuana abuse Tobacco abuse BPH (benign prostatic hyperplasia) Edema HTN (hypertension) Herpes - Surgical History Surgical History: Surgical History (Last Reviewed 06/13/18 @ 18:41 by Liane Blackburn RN) Hx of tonsillectomy - Family History Family History: Family History (Last Reviewed 06/13/18 @ 18:38 by Jolene Villatoro MD) Other CVA (cerebral vascular accident) - Tobacco History Second Hand Smoke Exposure: No Tobacco Use In Past 30 Days: No Smoking Status: Current every day smoker Tobacco Type: Cigarettes Cigarettes Per Day: 1 - Alcohol History How Often Do You Have a Drink Containing Alcohol: 4 or more times a week - Substance Use History Substance History: Active Abuse - Substance Use Type Marijuana Status: Active Route Used: Inhalation Reason for Use: Calm Down - Travel History Recent Travel in the [place] Within the Last 8 Weeks: No Recent Travel Out of the Country Within the Last 8 Weeks: No - Immunization History Tetanus Immunization: <5 Years Hx Influenza Vaccine This Season: No Medications and Allergies Active Medications: Active Medications Al Hydroxide/Mg Hydroxide (Milk Of Magnesia Liq) 30 ml PO Q12H PRN PRN Reason: Mild Constipation Aspirin (Aspirin) 325 mg PO DAILY [facility] Last Admin: 06/14/18 10:16 Dose: 325 mg Bisacodyl (Dulcolax Supp) 10 mg RECTAL DAILY PRN PRN Reason: SEVERE CONSITIPATION Carvedilol (Coreg) 3.125 mg PO BID [facility] Last Admin: 06/14/18 10:16 Dose: 3.125 mg Furosemide (Lasix) 40 mg PO BID@0900,1800 [facility] Last Admin: 06/14/18 10:16 Dose: 40 mg Vancomycin HCl 1,000 mg/ (Sodium Chloride) 250 mls @ 250 mls/hr IV.SIG CHEMICAL COMPOUNDER HELPER [facility] Last Infusion: 06/13/18 21:04 Dose: Infused Lactulose (Lactulose Liq) 30 ml PO DAILY PRN PRN Reason: SEVERE CONSITIPATION Potassium Chloride (K-Dur) 20 meq PO BID [facility] Last Admin: 06/14/18 10:16 Dose: 20 meq Sennosides (Senokot) 17.2 mg PO Q12H PRN PRN Reason: Moderate Constipation Allergies Allergy/AdvReac Type Severity Reaction Status Date / Time No Known Allergies Allergy Verified 06/13/18 17:55 Home Medications Medication Instructions Recorded Confirmed Type aspirin 325 mg PO DAILY 06/13/18 06/13/18 History furosemide 20 mg PO DAILY 06/13/18 06/13/18 History Exam Vital signs: Vital Signs 06/13/18 17:51 06/13/18 19:00 06/13/18 19:18 Temperature 97.4 F L Pulse Rate 108 H 105 H 105 H Respiratory Rate 20 16 Blood Pressure 99/69 L 75/63 L Pulse Oximetry 94 L 94 L 98 06/13/18 19:52 06/13/18 20:00 06/13/18 21:22 Temperature Pulse Rate 103 H Respiratory Rate 15 Blood Pressure 120/97 H 94/78 L Pulse Oximetry 96 100 06/13/18 21:55 06/13/18 22:07 06/13/18 22:20 Temperature 98.0 F Pulse Rate 103 H 108 H Respiratory Rate 15 18 Blood Pressure 98/74 L 125/105 H Pulse Oximetry 96 96 06/13/18 22:55 06/13/18 23:05 06/14/18 00:00 Temperature 98.3 F Pulse Rate 96 H 106 H 102 H Respiratory Rate 29 H 13 Blood Pressure 113/90 100/89 Pulse Oximetry 94 L 06/14/18 00:46 06/14/18 02:42 06/14/18 04:00 Temperature 98.9 F Pulse Rate 94 H Respiratory Rate 10 L Blood Pressure 99/79 L Pulse Oximetry 93 L 4 L 100 06/14/18 08:00 06/14/18 08:33 06/14/18 09:00 Temperature 97.2 F L Pulse Rate 106 H 98 H 94 H Respiratory Rate 14 17 Blood Pressure 111/90 111/90 Pulse Oximetry 100 95 06/14/18 10:38 06/14/18 11:52 06/14/18 12:00 Temperature 97.8 F Pulse Rate 98 H 94 H 93 H Respiratory Rate 13 11 L 12 Blood Pressure 110/92 H 105/87 105/87 Pulse Oximetry 100 100 100 Intake & Output 06/13/18 06/14/18 06/14/18 18:59 06:59 18:59 Intake Total 520 / 520 240 / 240 Output Total 1300 / 1300 150 / 150 Balance -780 / -780 90 / 90 Weight 81.5 kg 83.6 kg Intake: IV 520 / 520 NS Inj 500 ML @ 1000 mls/hr IV. 500 / 500 SIG BOLUS DAVI Rx#:[id number] Vancomycin Inj 1,000 MG In NS Inj 250 ML @ 250 mls/hr IV.SIG CHEMICAL COMPOUNDER HELPER DAVI Rx#:[id number] Oral 240 / 240 Output: Urine 1300 / 1300 150 / 150 Other: Date of Last Bowel Movement 06/14/18 06/14/18 # Bowel Movements 2 Weight On Admission 81.4 kg Narrative: GENERAL: Well-developed, well-nourished, in no acute distress. alert and orientated HEENT: Head is normocephalic without any lesions or masses noted. Facial features are symmetric. Eyes: Pupils equal round reactive to light. Extraocular muscles are intact. Conjunctivae were clear. Oropharyngeal: Pharynx without any erythema edema. Tongue is midline without deviation. Buccal mucosa is moist without any masses or lesions NECK: Supple without any masses. Trachea midline no deviation. No JVD, no bruits are appreciated CARDIAC: Regular rhythm, regular rate. S1/S2 are heard. No murmurs gallops or rubs. LUNGS: Clear to auscultation bilaterally. No wheeze, rhonchi or rales. No use of accessory muscles on inspiration or expiration. ABDOMEN: Soft, nontender. Nondistended. Bowel sounds heard in all 4 quadrants. No organomegaly or masses. Negative rebound, negative guarding, patient with scrotal edema EXTREMITIES: 1+ pitting edema noted bilateral lower extremities, pulses are equal bilaterally. No cyanosis or clubbing NEUROLOGY: Mood and affect appear appropriate. Cranial nerves II through XII grossly intact. Muscle strength 5/5 in upper and lower extremities bilaterally. Deep tendon reflexes are 2+ in upper and lower extremities bilaterally. Results - Labs CBC & Chem 7: 06/13/18 19:10 06/14/18 03:45 Labs: Laboratory Results - last 24 hr 06/13/18 06/13/18 06/13/18 19:10 19:10 19:10 CBC w Diff Slide review pending WBC 7.2 RBC 4.28 L Hgb 14.5 Hct 43.8 MCV 102.4 H MCH 33.8 MCHC 33.0 RDW 16.7 Plt Count 143 L MPV 7.2 Neut % (Auto) 76.6 H Lymph % (Auto) 10.1 Owen % (Auto) 11.8 H Eos % (Auto) 0.4 Baso % (Auto) 1.1 Neut # (Auto) 5.6 Lymph # (Auto) 0.7 L Owen # (Auto) 0.8 Eos # (Auto) 0.0 Baso # (Auto) 0.1 WBC Differential . Diff Scan Auto diff confirmed Differential Comment . Platelet Estimate Low L Platelet Morphology Normal Ovalocytes 1+ H Sodium 135 L Potassium 3.6 Chloride 95 L Carbon Dioxide 32.5 H Anion Gap 8 BUN 34 H Creatinine 1.10 Estimated GFR 66 L Random Glucose 92 Lactic Acid Calcium 8.6 Magnesium 2.0 Total Bilirubin 0.8 AST 26 ALT 18 Alkaline Phosphatase 83 Troponin I 0.09 H B-Natriuretic Peptide 3923 H Total Protein 5.4 L Albumin 2.4 L Urine Color Urine Clarity Urine pH Ur Specific [place] Urine Protein Urine Glucose (UA) Urine Ketones Urine Occult Blood Urine Nitrate Urine Bilirubin Urine Urobilinogen Ur Leukocyte Esterase Urine RBC Urine WBC Ur Squamous Epith Cells Urine Sperm Micro UA Comment Ur Microscopic Review Urine Culture Comments Urine Opiates Screen Ur Barbiturates Screen Ur Amphetamines Screen U Benzodiazepines Scrn Urine Cocaine Screen U Cannabinoids Screen Serum Alcohol Less than 3 06/13/18 06/13/18 06/13/18 19:10 19:40 19:40 CBC w Diff WBC RBC Hgb Hct MCV MCH MCHC RDW Plt Count MPV Neut % (Auto) Lymph % (Auto) Owen % (Auto) Eos % (Auto) Baso % (Auto) Neut # (Auto) Lymph # (Auto) Owen # (Auto) Eos # (Auto) Baso # (Auto) WBC Differential Diff Scan Differential Comment Platelet Estimate Platelet Morphology Ovalocytes Sodium Potassium Chloride Carbon Dioxide Anion Gap BUN Creatinine Estimated GFR Random Glucose Lactic Acid 0.9 Calcium Magnesium Total Bilirubin AST ALT Alkaline Phosphatase Troponin I B-Natriuretic Peptide Total Protein Albumin Urine Color Yellow Urine Clarity Clear Urine pH 6.0 Ur Specific [place] 1.020 Urine Protein 30 H Urine Glucose (UA) Negative Urine Ketones Trace H Urine Occult Blood Negative Urine Nitrate Negative Urine Bilirubin Negative Urine Urobilinogen 0.2 Ur Leukocyte Esterase Negative Urine RBC 0-3 Urine WBC 0-5 Ur Squamous Epith Cells 0-5 Urine Sperm Few H Micro UA Comment Culture not ind Ur Microscopic Review Microscopic reviewed Urine Culture Comments Culture not ind Urine Opiates Screen Neg Ur Barbiturates Screen Neg Ur Amphetamines Screen Neg U Benzodiazepines Scrn Neg Urine Cocaine Screen Neg U Cannabinoids Screen Pos H Serum Alcohol 06/13/18 06/14/18 06/14/18 22:12 03:45 03:45 CBC w Diff WBC RBC Hgb Hct MCV MCH MCHC RDW Plt Count MPV Neut % (Auto) Lymph % (Auto) Owen % (Auto) Eos % (Auto) Baso % (Auto) Neut # (Auto) Lymph # (Auto) Owen # (Auto) Eos # (Auto) Baso # (Auto) WBC Differential Diff Scan Differential Comment Platelet Estimate Platelet Morphology Ovalocytes Sodium Potassium 3.5 Chloride Carbon Dioxide Anion Gap BUN Creatinine Estimated GFR Random Glucose Lactic Acid Calcium Magnesium Total Bilirubin AST ALT Alkaline Phosphatase Troponin I 0.08 H 0.08 H B-Natriuretic Peptide Total Protein Albumin Urine Color Urine Clarity Urine pH Ur Specific [place] Urine Protein Urine Glucose (UA) Urine Ketones Urine Occult Blood Urine Nitrate Urine Bilirubin Urine Urobilinogen Ur Leukocyte Esterase Urine RBC Urine WBC Ur Squamous Epith Cells Urine Sperm Micro UA Comment Ur Microscopic Review Urine Culture Comments Urine Opiates Screen Ur Barbiturates Screen Ur Amphetamines Screen U Benzodiazepines Scrn Urine Cocaine Screen U Cannabinoids Screen Serum Alcohol - Imaging Impressions Chest X-Ray 06/13/18 18:37 CONCLUSION: Clear lungs. Caprini VTE Risk Assessment Caprini VTE Risk Assessment: Moderate/High Risk (score >= 2) Caprini Risk Assessment Model: Point Value = 1 Point Value = 2 Point Value = 3 Point Value = 5 Age 41-60 Minor surgery BMI > 25 kg/m2 Swollen legs Varicose veins or History of unexplained or recurrent spontaneous Oral contraceptives or hormone replacement Sepsis (< 1 month) Serious lung disease, including pneumonia (< 1 month) Abnormal pulmonary function Acute myocardial infarction Congestive heart failure (< 1 month) History of inflammatory bowel disease Medical patient at bed rest Age 61-74 Arthroscopic surgery Major open surgery (> 45 min) Laparoscopic surgery (> 45 min) Malignancy Confined to bed (> 72 hours) Immobilizing plaster cast Central venous access Age >= 75 History of VTE Family history of VTE Factor V Leiden Prothrombin [id number] Lupus anticoagulant Anticardiolipin antibodies Elevated serum homocysteine Heparin-induced thrombocytopenia Other congenital or acquired thrombophilia Stroke (< 1 month) Elective arthroplasty Hip, pelvis, or leg fracture Acute spinal cord injury (< 1 month) Prophylaxis Regimen: Total Risk Factor Score Risk Level Prophylaxis Regimen 0-1 Low Early ambulation 2 Moderate Order ONE of the following: *Sequential Compression Device (SCD) *Heparin 5000 units SQ BID 3-4 Higher Order ONE of the following medications: *Heparin 5000 units SQ TID *Enoxaparin/Lovenox 40 mg SQ daily (WT < 150 kg, CrCl > 30 mL/min) *Enoxaparin/Lovenox 30 mg SQ daily (WT < 150 kg, CrCl > 10-29 mL/min) *Enoxaparin/Lovenox 30 mg SQ BID (WT < 150 kg, CrCl > 30 mL/min) AND/OR *Sequential Compression Device (SCD) 5 or more Highest Order ONE of the following medications: *Heparin 5000 units SQ TID (Preferred with Epidurals) *Enoxaparin/Lovenox 40 mg SQ daily (WT < 150 kg, CrCl > 30 mL/min) *Enoxaparin/Lovenox 30 mg SQ daily (WT < 150 kg, CrCl > 10-29 mL/min) *Enoxaparin/Lovenox 30 mg SQ BID (WT < 150 kg, CrCl > 30 mL/min) AND *Sequential Compression Device (SCD) Assessment and Plan - Assessment (1) Anasarca Code(s): R60.1 - Generalized edema Status: Acute - Plan Anasarca, scrotal edema, improved -Likely secondary to combination of dilated cardiomyopathy, medical noncompliance -Patient was given Lasix 20 mg IV and continued on Lasix 40 mg p.o. twice daily -We will continue diuresis at this time, will continue his home medications metaxalone -We will continue Flomax Severe dilated cardiomyopathy, chronic systolic congestive heart failure -Continue home medications DVT prevention -Subcutaneous heparin
--- NOTE | 2018-06-14 18:44 | ECG ---
Date Performed: 06/14/2018 Time Performed: 02:22:16 PTAGE: 68 years EKG: SINUS TACHYCARDIA WITH SINUS ARRHYTHMIA LOW QRS VOLTAGE IN LIMB LEADS INCOMPLETE RIGHT BUND LE BRANCH BLOCK ABNORMAL ECG PREVIOUS TRACING : 06/13/2018 20.48 Since the previous tracing, no significant change noted DOCTOR: Montana Gallegos Interpretating Date/Time 06/14/2018 18:43:39
--- NOTE | 2018-06-14 19:23 | ECG ---
Date Performed: 06/13/2018 Time Performed: 20:48:29 PTAGE: 68 years EKG: SINUS TACHYCARDIA WITH FREQUENT SUPRAVENTRICULAR PREMATURE COMPLEXES LOW QRS VOLTAGE IN EXT REMITY LEADS INCOMPLETE RIGHT BUNDLE BRANCH BLOCK ABNORMAL ECG PREVIOUS TRACING : 06/13/2018 19.48 Since the previous tracing, no significant change noted DOCTOR: Montana Gallegos Interpretating Date/Time 06/14/2018 19:21:49
--- NOTE | 2018-06-14 19:30 | ECG ---
Date Performed: 06/13/2018 Time Performed: 19:46:28 PTAGE: 68 years EKG: SINUS TACHYCARDIA OCCASIONAL SUPRAVENTRICULAR PREMATURE COMPLEXES FREQUENT VENTRICULAR CORTEZ ATURE COMPLEXES AND FUSION COMPLEX INCOMPLETE RIGHT BUNDLE BRANCH BLOCK NONSPECIFIC T-WAVE ABNORMALIT Y ABNORMAL ECG PREVIOUS TRACING : 04/27/2018 21.28 Since the previous tracing, no significant change noted DOCTOR: Montana Gallegos Interpretating Date/Time 06/14/2018 19:29:45
[2018-06-15] MEDS: Aspirin 325 MG Tablet PO SCH (09:11)
[2018-06-15] MEDS: Furosemide 40 MG Tablet PO SCH (09:15)
--- NOTE | 2018-06-15 10:32 | P.PNIM ---
Subjective Interval history: 68-year-old male who is seen and examined today for follow-up on anasarca secondary to medical noncompliance. Patient is doing rather well today. Swelling has clinically improved and scrotal edema almost completely resolved. Vital signs appear to be stable. Patient remains afebrile Physical Exam Vital signs: Vital Signs 06/14/18 10:38 06/14/18 11:52 06/14/18 12:00 Temperature 97.8 F Pulse Rate 98 H 94 H 93 H Respiratory Rate 13 11 L 12 Blood Pressure 110/92 H 105/87 105/87 Pulse Oximetry 100 100 100 06/14/18 16:00 06/14/18 20:00 06/15/18 00:00 Temperature 98 F 98.3 F Pulse Rate 96 H 106 H 108 H Respiratory Rate 17 24 26 H Blood Pressure 119/81 104/76 105/96 H Pulse Oximetry 99 95 06/15/18 04:00 06/15/18 06:24 06/15/18 08:16 Temperature 98.3 F Pulse Rate 98 H 92 H Respiratory Rate 15 14 Blood Pressure 117/104 H 109/90 Pulse Oximetry 96 95 100 Intake & Output 06/14/18 06/15/18 06/15/18 18:59 06:59 18:59 Intake Total 240 / 240 60 / 60 Output Total 150 / 150 600 / 600 Balance 90 / 90 -600 / -600 60 / 60 Weight 79 kg Intake: Oral 240 / 240 60 / 60 Output: Urine 150 / 150 600 / 600 Other: # Urine Diapers 4 Date of Last Bowel Movement 06/14/18 06/14/18 Narrative: GENERAL: Well-developed, well-nourished, in no acute distress. alert and orientated HEENT: Head is normocephalic without any lesions or masses noted. Facial features are symmetric. Eyes: Extraocular muscles are intact. Conjunctivae were clear. NECK: Supple without any masses. Trachea midline no deviation. No JVD, no bruits are appreciated CARDIAC: Regular rhythm, regular rate. S1/S2 are heard. No murmurs gallops or rubs. LUNGS: Clear to auscultation bilaterally. No wheeze, rhonchi or rales. No use of accessory muscles on inspiration or expiration. ABDOMEN: Soft, nontender. Nondistended. Bowel sounds heard in all 4 quadrants. No organomegaly or masses. Negative rebound, negative guarding, patient with mild scrotal edema, which is significantly better as compared to yesterday EXTREMITIES: Bilateral lower extremity edema has significantly improved., pulses are equal bilaterally. No cyanosis or clubbing NEUROLOGY: Mood and affect appear appropriate. Cranial nerves II through XII grossly intact. Moving all extremities, patient does follow commands Results - Labs CBC & Chem 7: 06/13/18 19:10 06/14/18 03:45 Microbiology 06/13/18 19:20 Blood - Peripheral Aerobic Blood Culture - Preliminary No growth in 1 day 06/13/18 19:20 Blood - Peripheral Anaerobic Blood Culture - Preliminary No growth in 1 day 06/13/18 19:10 Blood - Peripheral Aerobic Blood Culture - Preliminary No growth in 1 day 06/13/18 19:10 Blood - Peripheral Anaerobic Blood Culture - Preliminary No growth in 1 day Assessment and Plan - Assessment (1) Anasarca Code(s): R60.1 - Generalized edema Status: Acute - Plan Anasarca, scrotal edema, improved -Likely secondary to combination of dilated cardiomyopathy, medical noncompliance -Patient was given Lasix 20 mg IV and continued on Lasix 40 mg p.o. twice daily -Diuresis continued with patient's home medications -Continued Flomax Severe dilated cardiomyopathy, chronic systolic congestive heart failure -Continue home medications and outpatient follow-up DVT prevention -Subcutaneous heparin Discharge Planning: Discharge home when cleared by cardiology
--- NOTE | 2018-06-15 12:29 | P.PN ---
Subjective Interval history: No complaints, improved edema/breathing Physical Exam Vital signs: Vital Signs 06/14/18 16:00 06/14/18 20:00 06/15/18 00:00 Temperature 98 F 98.3 F Pulse Rate 96 H 106 H 108 H Respiratory Rate 17 24 26 H Blood Pressure 119/81 104/76 105/96 H Pulse Oximetry 99 95 06/15/18 04:00 06/15/18 06:24 06/15/18 08:00 Temperature 98.3 F Pulse Rate 98 H 92 H Respiratory Rate 15 14 Blood Pressure 117/104 H 109/90 Pulse Oximetry 96 95 96 06/15/18 08:16 06/15/18 10:00 Temperature Pulse Rate 94 H Respiratory Rate 14 Blood Pressure 109/72 Pulse Oximetry 100 99 Intake & Output 06/14/18 06/15/18 06/15/18 18:59 06:59 18:59 Intake Total 240 / 240 60 / 60 Output Total 150 / 150 600 / 600 Balance 90 / 90 -600 / -600 60 / 60 Weight 79 kg Intake: Oral 240 / 240 60 / 60 Output: Urine 150 / 150 600 / 600 Other: # Urine Diapers 4 Date of Last Bowel Movement 06/14/18 06/14/18 06/14/18 - Constitutional no acute distress - Routine HEENT Exam Head: Present: normocephalic Eye: Present: EOMI ENT: Present: mucous membranes moist - Routine Neck Exam Present: supple. Absent: JVD - Routine Respiratory Exam Present: CTA bilaterally. Absent: accessory muscle use - Routine Cardiovascular Exam Present: murmur - Routine Extremities Exam Present: edema Results - Labs CBC & Chem 7: 06/13/18 19:10 06/14/18 03:45 Microbiology 06/13/18 19:20 Blood - Peripheral Aerobic Blood Culture - Preliminary No growth in 2 days 06/13/18 19:20 Blood - Peripheral Anaerobic Blood Culture - Preliminary No growth in 2 days 06/13/18 19:10 Blood - Peripheral Aerobic Blood Culture - Preliminary No growth in 2 days 06/13/18 19:10 Blood - Peripheral Anaerobic Blood Culture - Preliminary No growth in 2 days Assessment and Plan - Assessment (1) Dilated cardiomyopathy Code(s): I42.0 - Dilated cardiomyopathy Status: Acute Plan: non-ischemic by recent nuc/ on bb; will try adding low dose entresto (2) CHF (congestive heart failure) Code(s): I50.9 - Heart failure, unspecified Status: Acute Plan: seems reasonably compensated, would consider changing metolazone to perhaps 3 times weekly prior to d/c (3) Tobacco abuse counseling Code(s): Z71.6 - Tobacco abuse counseling Status: Acute Plan: counseled at length (4) Noncompliance Code(s): Z91.19 - Patient's noncompliance with other medical treatment and regimen Status: Acute Plan: w/ foods/smoking/ ? compliance w/ his life-vest - Attending Attestation He seems near his baseline, hopefully can go home tomorrow or Tuesday.
--- NOTE | 2018-06-15 15:58 | P.DCO ---
- Physical Therapy Order: Evaluate and treat, Improve ambulation, Strength and gait training - Home Health Nursing Order: Medical education, Signs/symptoms of disease process, Nursing assessment with vital signs - Case Management Consult No - Certification I have seen patient Shahriar Diego on 06/15/18. My clinical findings support the need for the requested home health care services because: Medication compliance is questionable, High risk of falls I certify that my clinical findings support that this patient is homebound because: Poor cardiac reserve
[2018-06-16] MEDS: Furosemide 40 MG Tablet PO SCH ×2 (03:47→09:35)
[2018-06-16 05:23] VITALS: TEMP 97.5
--- NOTE | 2018-06-16 06:20 | P.PNCA ---
Subjective Interval history: The patient has mild shortness of breath which is better but denies chest pain, GI symptoms or bleeding. Telemetry reveals sinus rhythm with PVCs. Medications and Allergies Active Medications: Active Medications Al Hydroxide/Mg Hydroxide (Milk Of Magnesia Liq) 30 ml PO Q12H PRN PRN Reason: Mild Constipation Albuterol (Duoneb Neb (Prn)) 1 ampul NEB Q2HR NEB PRN PRN Reason: sob Aspirin (Ecotrin) 81 mg PO DAILY [facility] Bisacodyl (Dulcolax Supp) 10 mg RECTAL DAILY PRN PRN Reason: SEVERE CONSITIPATION Carvedilol (Coreg) 3.125 mg PO BID [facility] Last Admin: 06/15/18 20:01 Dose: 3.125 mg Enoxaparin Sodium (Lovenox Inj) 40 mg SQ DAILY [facility] Furosemide (Lasix) 40 mg PO BID@0900,1800 [facility] Last Admin: 06/16/18 03:47 Dose: Not Given Vancomycin HCl 1,000 mg/ (Sodium Chloride) 250 mls @ 250 mls/hr IV.SIG [employer] [facility] Last Infusion: 06/13/18 21:04 Dose: Infused Lactulose (Lactulose Liq) 30 ml PO DAILY PRN PRN Reason: SEVERE CONSITIPATION Metolazone (Zaroxolyn) 2.5 mg PO BID [facility] Last Admin: 06/15/18 20:01 Dose: 2.5 mg Potassium Chloride (K-Dur) 20 meq PO BID [facility] Last Admin: 06/15/18 20:03 Dose: 20 meq Sacubitril/Valsartan (Entresto 24 Mg/26 Mg Tablet) 1 tab PO BID [facility] Last Admin: 06/15/18 20:01 Dose: 1 tab Sennosides (Senokot) 17.2 mg PO Q12H PRN PRN Reason: Moderate Constipation Tamsulosin HCl (Flomax) 0.4 mg PO DAILY [facility] Last Admin: 06/15/18 09:11 Dose: 0.4 mg Allergies Allergy/AdvReac Type Severity Reaction Status Date / Time No Known Allergies Allergy Verified 06/13/18 17:55 Home Medications Medication Instructions Recorded Confirmed Type aspirin 325 mg PO DAILY 06/13/18 06/13/18 History furosemide 20 mg PO DAILY 06/13/18 06/13/18 History Physical Exam Vital signs: Vital Signs 06/15/18 06:24 06/15/18 07:00 06/15/18 08:00 Temperature Pulse Rate 92 H 94 H 88 Respiratory Rate 14 11 L 10 L Blood Pressure 109/90 Pulse Oximetry 95 93 L 100 06/15/18 08:07 06/15/18 08:16 06/15/18 09:00 Temperature Pulse Rate 88 94 H Respiratory Rate 12 11 L Blood Pressure 106/88 123/90 Pulse Oximetry 99 100 94 L 06/15/18 10:00 06/15/18 11:00 06/15/18 12:00 Temperature Pulse Rate 94 H 100 H 100 H Respiratory Rate 11 L 25 H 22 Blood Pressure 109/72 109/73 Pulse Oximetry 99 91 L 94 L 06/15/18 13:00 06/15/18 13:11 06/15/18 13:50 Temperature Pulse Rate 98 H 100 H 100 H Respiratory Rate 11 L 17 28 H Blood Pressure 109/73 96/70 L Pulse Oximetry 93 L 99 06/15/18 14:00 06/15/18 15:00 06/15/18 15:05 Temperature Pulse Rate 104 H 106 H 100 H Respiratory Rate 23 27 H 23 Blood Pressure 110/78 Pulse Oximetry 99 99 06/15/18 16:00 06/15/18 17:00 06/15/18 19:30 Temperature Pulse Rate 100 H 96 H Respiratory Rate 24 14 Blood Pressure Pulse Oximetry 94 L 97 06/15/18 20:00 06/16/18 00:00 06/16/18 04:00 Temperature 98.8 F 98.2 F 97.5 F L Pulse Rate 104 H 91 H 88 Respiratory Rate 20 22 20 Blood Pressure 113/91 H 99/72 L 109/86 Pulse Oximetry 94 L 95 94 L Intake & Output 06/15/18 06/15/18 06/16/18 06:59 18:59 06:59 Intake Total 60 / 60 520 / 520 Output Total 600 / 600 1420 / 1420 Balance -600 / -600 60 / 60 -900 / -900 Weight 79 kg Intake: Oral 60 / 60 520 / 520 Output: Urine 600 / 600 1420 / 1420 Other: # Urine Diapers 4 Date of Last Bowel Movement 06/14/18 06/14/18 06/14/18 Narrative: GENERAL: Well-nourished, well-developed patient in no apparent distress. SKIN: Warm and dry. NECK: JVD normal - less than or equal to 5 cm H20. CARDIOVASCULAR: Regular rate and rhythm without gallops, or rubs. 2/6 blowing systolic ejection murmur at the apex. RESPIRATORY: Normal breath sounds - equal bilaterally. No accessory muscle use. No wheezes, rales or rubs. PERIPHERY: No cyanosis, or edema. Results 06/13/18 19:10 06/14/18 03:45 Comprehensive Metabolic Panel 06/14/18 Range/Units 03:45 Potassium 3.5 (3.5-5.1) meq/L Intake and Output 06/15/18 06/15/18 06/16/18 14:59 22:59 06:59 Intake Total 60 / 60 520 / 520 Output Total 1420 / 1420 Balance 60 / 60 -900 / -900 Intake: Oral 60 / 60 520 / 520 Output: Urine 1420 / 1420 Other: Date of Last Bowel Movement 06/14/18 06/14/18 06/14/18 Assessment and Plan - Assessment (1) Dilated cardiomyopathy Code(s): I42.0 - Dilated cardiomyopathy Status: Acute (2) CHF (congestive heart failure) Code(s): I50.9 - Heart failure, unspecified Status: Acute (3) Tobacco abuse counseling Code(s): Z71.6 - Tobacco abuse counseling Status: Acute (4) Noncompliance Code(s): Z91.19 - Patient's noncompliance with other medical treatment and regimen Status: Acute - Plan Problems: Acute on chronic systolic congestive heart failure with cardiomyopathy Noncompliance Tobacco abuse Recommendations: Tobacco and alcohol abstinence Continue present medical regimen The patient is not on DVT prophylaxis and I have taken the liberty of starting him on subcutaneous Lovenox and decreasing his aspirin. Labs have not been ordered and I will order a BMP today and leave it to the primary service. He does need to establish with a primary care provider and referral from the primary service here would be helpful. He will need to follow-up with cardiology. We will be available if needed. All questions answered.
[2018-06-16 07:41] LABS: Potassium 3.3 meq/L (3.5-5.1)
[2018-06-16 07:43] LABS: Calcium 8.5 mg/dL (8.5-10.1)
[2018-06-16 07:44] LABS: Carbon Dioxide 40.4 meq/L (21.0-32.0)
[2018-06-16] MEDS ORDERED: Enoxaparin Inj 40 MG/0.4 ML Syringe SQ SCH (09:00)
[2018-06-16 09:58] VITALS: O2SAT 95
--- NOTE | 2018-06-16 13:29 | P.DS ---
Date of admission: 06/13/18 20:32 Primary care physician: No Primary Care Physician Attending physician on discharge: Virginia Perry Anticipated date of discharge: 06/16/18 Brief History from admission: 68-year-old male with known history of severe dilated cardiomyopathy with ejection fraction less than 20%, chronic systolic congestive heart failure, chronic tobacco use, chronic marijuana use, chronic alcohol abuse, noncompliance who presented the hospital because of lower extremity edema, scrotal edema where it was difficult for him to urinate. Patient was just recently hospitalized and discharged on in which patient was supplied a LifeVest aware in outpatient setting. However patient has not been using it. He is to continue to drink alcohol at least 3-5 drinks daily, continue to smoke cigarettes and marijuana. He is rather noncompliant but he presented to the hospital. Patient came to the emergency department and had workup done and found to have an elevated BNP, flat and equivocal troponin, anasarca. Patient was given Lasix with significant improvement of his edema as well as scrotal swelling. Patient does have a urinal which is half full in his room. He states that his scrotal edema is significantly improved. Patient denies any chest pain, shortness of breath, dyspnea. DS: Diagnosis - Discharge Diagnosis (1) Anasarca Status: Acute (2) Noncompliance Status: Acute DS: Medications - Discharge Medications Prescriptions: carvedilol [Coreg] 3.125 mg PO BID #60 tab furosemide [Lasix] 20 mg PO BID #60 tab metolazone 5 mg PO 3XW #12 tab sacubitril-valsartan [Entresto] 1 tab PO BID #60 tab DS: Summary Hospital Course: 68-year-old male with rather unfortunate situation of have been significant dilated cardiomyopathy, chronic systolic congestive heart failure who presented to the hospital initially because of generalized edema and scrotal edema. Patient upon discharge from the hospital recently has not been compliant with his outpatient regimen. He is not taking his medications as directed. He is not wearing a LifeVest. He continues to drink alcohol, smoke a pack of cigarettes a day, smoke marijuana. He has not had any outpatient follow-up since discharge either. Because the patient's objective findings of anasarca, scrotal edema patient was admitted the hospital with diuresis. Patient was resumed on his home medications of p.o. Lasix, metolazone with continued improvement of diuresis as well as maintaining fluid balance. Patient was counseled extensively on his noncompliance, alcohol abuse, marijuana abuse, tobacco abuse. Patient states that he feels much better at this time and is very eager to go home. Presently the patient is clinically stable. Since he has been back on his outpatient medication he is back to his baseline. Physical therapy recommended that the patient have home health care, case management consulted. Will arrange discharge with home health care. Also arrange for mandatory referral for patient to follow-up with primary medical doctor as well as recommending follow-up with outpatient cardiology. Counseled the patient that he needs to wear his LifeVest. We will plan discharge accordingly. - Time Spent with Patient Total time spent providing and/or coordinating discharge services: Greater than 30 minutes - Quality: VTE Deep Vein Thrombosis/Pulmonary Embolism Present on Admission: No Exam Vital signs: Vital Signs 06/15/18 13:50 06/15/18 14:00 06/15/18 15:00 Temperature Pulse Rate 100 H 104 H 106 H Respiratory Rate 28 H 23 27 H Blood Pressure 96/70 L Pulse Oximetry 99 06/15/18 15:05 06/15/18 16:00 06/15/18 17:00 Temperature Pulse Rate 100 H 100 H 96 H Respiratory Rate 23 24 14 Blood Pressure 110/78 Pulse Oximetry 99 94 L 06/15/18 19:30 06/15/18 20:00 06/16/18 00:00 Temperature 98.8 F 98.2 F Pulse Rate 104 H 91 H Respiratory Rate 20 22 Blood Pressure 113/91 H 99/72 L Pulse Oximetry 97 94 L 95 06/16/18 04:00 06/16/18 07:47 06/16/18 09:57 Temperature 97.5 F L Pulse Rate 88 90 Respiratory Rate 20 22 Blood Pressure 109/86 Pulse Oximetry 94 L 100 95 Intake & Output 06/15/18 06/16/18 06/16/18 18:59 06:59 18:59 Intake Total 60 / 60 520 / 520 240 / 240 Output Total 1420 / 1420 2300 / 2300 Balance 60 / 60 -900 / -900 -2059 / -2059 Weight 78.8 kg Intake: Oral 60 / 60 520 / 520 240 / 240 Output: Urine 1420 / 1420 2300 / 2300 Other: Date of Last Bowel Movement 06/14/18 06/14/18 06/14/18 Narrative: GENERAL: Well-developed, well-nourished, in no acute distress. alert and orientated HEENT: Head is normocephalic without any lesions or masses noted. Facial features are symmetric. Eyes: Extraocular muscles are intact. Conjunctivae were clear. NECK: Supple without any masses. Trachea midline no deviation. No JVD, no bruits are appreciated CARDIAC: Regular rhythm, regular rate. S1/S2 are heard. No murmurs gallops or rubs. LUNGS: Clear to auscultation bilaterally. No wheeze, rhonchi or rales. No use of accessory muscles on inspiration or expiration. ABDOMEN: Soft, nontender. Nondistended. Bowel sounds heard in all 4 quadrants. No organomegaly or masses. Negative rebound, negative guarding, patient with mild scrotal edema, this continue to improve on a daily basis EXTREMITIES: Bilateral lower extremity edema has significantly improved., pulses are equal bilaterally. No cyanosis or clubbing NEUROLOGY: Mood and affect appear appropriate. Cranial nerves II through XII grossly intact. Moving all extremities, speech is clear Results Procedures completed during hospitalization: None Labs on day of discharge: Labs from last 24 hours 06/16/18 07:24 Sodium 138 Potassium 3.3 L Chloride 94 L Carbon Dioxide 40.4 H Anion Gap 4 L BUN 43 H Creatinine 1.20 Estimated GFR 60 L Random Glucose 118 H Calcium 8.5 Preliminary micro results at discharge 06/13/18 19:20 Aerobic Blood Culture - Preliminary Blood - Peripheral No growth in 3 days Anaerobic Blood Culture - Preliminary No growth in 3 days 06/13/18 19:10 Aerobic Blood Culture - Preliminary Blood - Peripheral No growth in 3 days Anaerobic Blood Culture - Preliminary No growth in 3 days - Impressions ITS Impressions Chest X-Ray 06/13/18 18:37 CONCLUSION: Clear lungs. Discharge Plan - Discharge Disposition Patient Disposition: W/Home Health Service - Discharge Condition Condition: Stable - Discharge Order Discharge Orders: Discharge Order (Routine); Ordered 06/16/18 Ordered By: Hugh Harry - Discharge Details Anticipated Discharge Date: 06/16/18 Discharge Comment: Okay to discharge home with home health care once arranged made by case management - Physicians Team Primary Care Provider: Primary Care Physici,Veronica Attending Provider: Virginia Perry Other Providers: Fred Baca,
[2018-06-16 14:59] VITALS: BP 113/86; PULSE 108; RESP 42
--- NOTE | 2018-06-19 09:52 | P.DCO ---
- Physical Therapy Order: Evaluate and treat, Improve ambulation, Strength and gait training - Home Health Nursing Order: Medical education, Signs/symptoms of disease process, Medication education-adverse effect, Nursing assessment with vital signs - Case Management Consult No - Certification I have seen patient Shahriar Diego on 06/19/18. My clinical findings support the need for the requested home health care services because: Limited mobility due to disease progression, Patient has SOB, Deconditioned with increased weakness, Limited ability to care for self, Impaired cognition/ judgement, High risk of falls, Infection with risk of complications I certify that my clinical findings support that this patient is homebound because: Unsteady gait/balance, Unsafe to leave home unassisted, Need for psychosocial assistance, Non-ambulatory: confined to bed or chair, Unable to use public transportation, Poor cardiac reserve
== END 2018-06-16 15:26 | disposition home health service (06) ==
LOC: PHED 17:24 → PHEDA 20:32 → PHICU 21:44
PROVIDERS: ADMIT Hospitalist; ATTEND Hospitalist